=== PATIENT | female | born 1985 | race Caucasian/White ===

== ENCOUNTER → 2023-08-15 | Outpatient (CLI) | payer MEDICAID, SELFPAY ==
[2023-08-15 12:10] LABS: Absolute Lymphocyte Count 2.24 X10^3/uL (0.83-4.51); Absolute Neutrophil Count 5.6 X10^3/uL (2.0-7.7); Basophil# 0.07 X10^3/uL; Basophil% 0.8 % (0-1); Eosinophil# 0.08 X10^3/uL; Eosinophils% 0.9 % (0-5); Hematocrit 41.5 % (37-47); Hemoglobin 13.3 g/dL (12.0-15.0); Lymphocyte # 2.24 X10^3/ul (0.83-4.51); Lymphocyte % 25.7 % (19-41); Mean Corpuscular Hgb 28.8 pg (27.0-32.0); Mean Corpuscular Volume 89.8 fL (81-99); Mean Platelet Vol. 9.8 fl (6.2-12.0); Monocyte# 0.67 X10^3/uL; Monocyte% 7.7 % (0-10); NRBC Flagged by Analyzer 0 % (0-5); Neutrophil # 5.63 X10^3/uL (2.7-7.7); Neutrophil % 64.4 % (47-70); Platelet Count 339 K/mm3 (150-450); RBC Distribution Width CV 12.6 % (11.6-14.6); RBC Distribution Width SD 41.5 fl (35.1-43.9); Red Blood Count 4.62 M/mm3 (4.2-5.4); White Blood Count 8.7 K/mm3 (4.4-11.0)
[2023-08-15 12:40] LABS: Vitamin D,25 Hydroxy 19.6 ng/mL
[2023-08-15 12:47] LABS: ALB/GLOB Ratio 0.9 RATIO (0.9-2.4); AST(SGOT) 15 U/L (15-37); Alanine Aminotransfer ALT/SGPT 25 U/L (13-56); Albumin, Serum 3.5 g/dL (3.2-5.0); Alkaline Phosphatase 65 U/L (45-117); Anion Gap 5 (5-15); BUN 12 mg/dL (7-18); BUN/Creat Ratio 22.7 RATIO (10-20); Calcium,Total 9.1 mg/dL (8.5-10.1); Chloride 106 mmol/L (98-107); Cholesterol 198 mg/dL (200); Creatinine, Serum 0.53 mg/dL (0.55-1.02); EST Glomerular Filtration Rate 137 mL/min (>60); Est Glom Filt Rate - Afr Amer 166 mL/min (>60); Globulin 3.7 g/dL (2.2-4.2); Glucose 91 mg/dL (74-106); High Density Lipoprotein 48 mg/dL; Protein, Total 7.2 g/dL (6.4-8.2); Sodium Level 136 mmol/L (136-145); Thyroid Stim Hormone (TSH) 2.25 uIU/mL (0.358-3.74); Triglycerides 80 mg/dL; Very Low Density Lipoprotein 16 mg/dL (5-40)
== END | disposition home or self-care (01) ==
PROVIDERS: PCP Family Medicine; Referring Provider Family Medicine; Visit Provider Family Medicine
DX: K92.1 Melena (principal); R10.9 Unspecified abdominal pain; R53.83 Other fatigue; Z13.21 Encounter for screening for nutritional disorder
CPT/HCPCS: 36415; 80053; 80061; 82306; 84443; 85025

== ENCOUNTER 2023-08-26 19:13 | Emergency (ER) | payer MEDICAID, SELFPAY ==
[2023-08-26 19:14] VITALS: BP 170/126; PULSE 95; RESP 16; TEMP 36.7; O2SAT 98; BMI 38.2
[2023-08-26] MEDS: Ketorolac 30 MG/ML Syringe IM (19:45)
[2023-08-26] MEDS: Orphenadrine 60 MG/2 ML Ampul IM (19:45)
--- NOTE | 2023-08-26 20:15 | RAD_ITS ---
STUDY: X-RAY - LUMBAR SPINE REASON FOR EXAM: Female, 38 years old. back pain TECHNIQUE: 2 view(s) of the lumbar spine were obtained. COMPARISON: None FINDINGS: Normal lumbar lordosis. Minimal scoliosis with convexity to the left. There is a normal alignment of the vertebrae. Normal vertebral bodies and endplates. Normal disc space heights. There is no demonstrated fracture. The soft tissue structures are unremarkable. RAD/Lumbar Spine 2 or 3 Views IMPRESSION: Minor scoliosis with convexity to the left. Otherwise normal x-ray of the lumbar spine with no acute fracture or spondylolisthesis. Electronically Signed: Kristen Prado MD at 20:33 EST ,
--- NOTE | 2023-08-26 20:31 | EDS_ITS ---
HPI <COY Church - Last Filed: 08/26/23 21:30> History of Present Illness Chief Complaint: Back Narrative Narrative: Patient presenting today with back pain that started yesterday. She reports that she was reaching in the fridge to grab an ice tea when she felt a sudden sharp pain in her back. She reports that the pain radiates down the anterior and posterior aspect of her bilateral lower extremities. She denies any bowel/bladder incontinence, saddle paresthesia, urinary symptoms, fevers, chills. She is able to ambulate. She has been taking ibuprofen, Tylenol, and a friend's gabapentin with minimal relief of her symptoms. She denies any paresthesias to her bilateral lower extremities. [facility] <COY Church - Last Filed: 08/26/23 21:30> [facility] Medical History Marijuana abuse Marijuana smoker Home Medications cyclobenzaprine 10 mg tablet 10 mg PO TID PRN Muscle Spasm 5 days #15 TABLETS 08/26/23 [Rx Last Taken Unknown] ergocalciferol (vitamin D2) 1,250 mcg (50,000 unit) capsule 50,000 unit PO SA 08/26/23 [History Last Taken Unknown] hydrocodone-acetaminophen 5-325mg 5mg-325mg 1 tab PO Q4H PRN PRN Pain 3 days #7 TABLETS 08/26/23 [Rx Last Taken Unknown] naproxen 500 mg tablet 500 mg PO BID #14 tabs 08/26/23 [Rx Last Taken Unknown] Allergy/AdvReac Type Severity Reaction Status Date / Time No Known Allergies Allergy Verified 08/26/23 19:16 Social History Smoking Status: Current every day smoker tobacco type: cigarettes ROS <COY Church - Last Filed: 08/26/23 21:30> ROS ED Constitutional Constitutional ED: Denies chills or fever(s) Cardiovascular Cardiovascular: Denies chest pain Respiratory/Chest Respiratory/Chest: Denies cough or dyspnea Gastrointestinal Gastrointestinal: Denies abdominal pain, nausea or vomiting Genitourinary Genitourinary ED: Denies dysuria, hematuria or urinary urgency Musculoskeletal Musculoskeletal: Reports back pain Integumentary Denies rash Neurologic Neurologic: Denies paresthesias or weakness EXAM <COY Church - Last Filed: 08/26/23 21:30> Physical Exam Const Vital Signs: 08/26/23 19:14 Temperature 98.1 F Temperature Source Temporal Pulse Rate 95 Respiratory Rate 16 Blood Pressure 170/126 H Blood Pressure Mean 140 Pulse Ox 98 Oxygen Delivery Method Room Air Positive well nourished, well developed and no apparent distress General Appearance ED: well developed HEENT Reports normocephalic and head/scalp atraumatic Mouth ED: Yes moist mucous membranes normal Eyes PERRL and EOMs intact bilaterally Neck full ROM and supple Chest Wall inspection of chest normal Resp normal respiratory effort and clear to auscultation bilaterally Cardio regular rate and regular rhythm GI soft to palpation, non-tender, non-distended and no masses Back/Spine normal ROM and normal to inspection Back/Spine Narrative: Right lumbar paraspinal tenderness, minimal midline lumbar back tenderness, no step-offs or deformities. Extremity normal to inspection and full ROM Neuro oriented x3, CN's II-XII intact bilaterally, moves all extremities, no focal motor deficits and no sensory deficits noted Neuro Narrative: Sensation intact bilateral lower extremities. Sensorium / Orientation: awake and alert Motor Exam: strength 5/5 throughout Psych mental status grossly normal and thought process normal Skin no rashes or lesions noted and no wounds <Dr. Broderick Ayala MD - Last Filed: 08/26/23 23:39> Physical Exam Const Vital Signs: 08/26/23 19:14 Temperature 98.1 F Temperature Source Temporal Pulse Rate 95 Respiratory Rate 16 Blood Pressure 170/126 H Blood Pressure Mean 140 Pulse Ox 98 Oxygen Delivery Method Room Air MDM <COY Church - Last Filed: 08/26/23 21:30> [facility] Narrative Medical decision making narrative: Patient presenting today with lower back pain that she has had since yesterday. She did report that she does have chronic low back pain which has been worked up in the past and thinks that this is disc related and is a flare-up. This does feel similar to back pain that she has had. No symptoms of cauda equina or spinal abscess. I do not feel that any emergent MRI imaging is indicated at this time. X-ray of the lumbar spine obtained, this shows spondylolisthesis. She was given Toradol and Norflex here for her pain. On Reexamination she does report some improvement of her symptoms. She will be given a prescription for Warren, naproxen, and Flexeril. She has been given return instructions and is to follow-up with her PCP. She is comfortable with plan. Radiography X-Ray: Read by ED Physician and Read by Radiologist Diagnostic Testing: Clinical Impression(s) from Imaging Studies Lumbar Spine X-Ray 08/26/23 20:15 IMPRESSION: Minor scoliosis with convexity to the left. Otherwise normal x-ray of the lumbar spine with no acute fracture or spondylolisthesis. Electronically Signed: Kristen Prado MD at 20:33 EST , <Dr. Broderick Ayala MD - Last Filed: 08/26/23 23:39> MDM Radiography Diagnostic Testing: Clinical Impression(s) from Imaging Studies Lumbar Spine X-Ray 08/26/23 20:15 IMPRESSION: Minor scoliosis with convexity to the left. Otherwise normal x-ray of the lumbar spine with no acute fracture or spondylolisthesis. Electronically Signed: Kristen Prado MD at 20:33 EST , Treatment and Re-Evaluation Narrative: I have personally performed a face to face assessment of the patient and have reviewed the DALE Note. I performed a substantive portion of the visit including all aspects of the following. My alvarez findings include: History is sudden onset right and middle distal low back pain yesterday when she bent over to reach into her refrigerator. Pain radiates into both legs below the knees but no weakness, numbness, bowel or bladder dysfunction, or saddle anesthesia. States she has a longstanding history of back problems and has had this pain before, thinks it is a disc, and states this is a flareup. Exam is uncomfortable when movement of the legs and back, but comfortable and stable when remaining still. Tender in the right lumbosacral paraspinal region and into the sciatic notch on the right but not the left. Negative straight leg raises. Normal reflexes, no clonus, and toes downgoing. Reflexes are normal and symmetric bilaterally. Medical Decison Making lumbar spine x-rays show scoliosis with no acute fracture or mitral rotation, 3 views. Patient given analgesics here muscle relaxers p rescriptions for supportive care, she does not have cauda equina or conus medullaris syndrome at this time, we discussed reasons to return to the ER for emergent MRI but otherwise it is not indicated emergently at this time. Follow- up advised. Other additions or changes: [None] Discharge Plan Triage Chief Complaint: Back ED Midlevel Provider: Ilda Salazar ED Provider: Broderick Ayala Dx/Rx/DC Orders Clinical Impression: Acute exacerbation of chronic low back pain Instructions: ED Back Care Tips Prescriptions: New hydrocodone-acetaminophen 5-325 mg tablet 1 tab PO Q4H PRN PRN (Reason: Pain) 3 Days Qty: 7 0RF naproxen 500 mg tablet 500 mg PO BID Qty: 14 0RF cyclobenzaprine 10 mg tablet 10 mg PO TID PRN (Reason: Muscle Spasm) 5 Days Qty: 15 0RF No Action ergocalciferol (vitamin D2) 1,250 mcg (50,000 unit) capsule 50,000 unit PO SA Primary Care Provider: Silva Jaime Referrals: Silva Jaime MD [Primary Care Provider] - 5-7 Days Activity Restrictions/Additional Instructions: Please follow-up with your PCP and return for any worsening of your symptoms. Disposition Disposition: Home, Self Care Discharge Date/Time: 08/26/23 21:35
== END 2023-08-26 21:35 | disposition home or self-care (01) ==
PROVIDERS: Emergency Provider Emergency Medicine; PCP Family Medicine; Visit Provider Emergency Medicine
DX: M54.50 Low back pain, unspecified (principal); G89.29 Other chronic pain; F17.210 Nicotine dependence, cigarettes, uncomplicated
CPT/HCPCS: 72100; 96372; 99282

== ENCOUNTER → 2023-10-19 | Outpatient (CLI) | payer MEDICAID, SELFPAY ==
[2023-10-19 17:25] LABS: Absolute Lymphocyte Count 2.96 X10^3/uL (0.83-4.51); Absolute Neutrophil Count 6.5 X10^3/uL (2.0-7.7); Basophil# 0.05 X10^3/uL; Basophil% 0.5 % (0-1); Eosinophil# 0.13 X10^3/uL; Eosinophils% 1.3 % (0-5); Hematocrit 37.7 % (37-47); Hemoglobin 12.6 g/dL (12.0-15.0); Lymphocyte # 2.96 X10^3/ul (0.83-4.51); Lymphocyte % 28.7 % (19-41); Mean Corp Hgb Conc 33.4 g/dL (32-36); Mean Corpuscular Volume 89.8 fL (81-99); Mean Platelet Vol. 9.3 fl (6.2-12.0); Monocyte# 0.69 X10^3/uL; Monocyte% 6.7 % (0-10); NRBC Flagged by Analyzer 0 % (0-5); Neutrophil # 6.47 X10^3/uL (2.7-7.7); Neutrophil % 62.6 % (47-70); Platelet Count 342 K/mm3 (150-450); RBC Distribution Width CV 12.9 % (11.6-14.6); RBC Distribution Width SD 42.5 fl (35.1-43.9); White Blood Count 10.3 K/mm3 (4.4-11.0)
[2023-10-19 17:48] LABS: Vitamin B12 263 pg/mL (211-911)
[2023-10-19 18:02] LABS: AST(SGOT) 19 U/L (15-37); Alanine Aminotransfer ALT/SGPT 24 U/L (13-56); Albumin, Serum 3.3 g/dL (3.2-5.0); Alkaline Phosphatase 62 U/L (45-117); Anion Gap 5 (5-15); BUN 11 mg/dL (7-18); BUN/Creat Ratio 19.9 RATIO (10-20); Calcium,Total 8.8 mg/dL (8.5-10.1); Chloride 108 mmol/L (98-107); Creatinine, Serum 0.55 mg/dL (0.55-1.02); EST Glomerular Filtration Rate 130 mL/min (>60); Est Glom Filt Rate - Afr Amer 157 mL/min (>60); Globulin 3.4 g/dL (2.2-4.2); Glucose 99 mg/dL (74-106); Magnesium 1.9 mg/dL (1.6-2.6); Potassium 4.1 mmol/L (3.5-5.1); Protein, Total 6.7 g/dL (6.4-8.2); Sodium Level 140 mmol/L (136-145); Thyroid Stim Hormone (TSH) 1.43 uIU/mL (0.358-3.74)
== END | disposition home or self-care (01) ==
LOC: MTLAB 14:29
PROVIDERS: PCP Family Medicine; Referring Provider Family Medicine; Visit Provider Family Medicine
DX: R20.9 Unspecified disturbances of skin sensation (principal)
CPT/HCPCS: 36415; 80053; 82607; 83735; 84443; 85025

== ENCOUNTER 2023-10-22 20:14 | Emergency (ER) | payer MEDICAID, SELFPAY ==
[2023-10-22 20:16] VITALS: BP 163/82; PULSE 86; RESP 12; RESP 14; TEMP 36; O2SAT 100; BMI 39.0
--- NOTE | 2023-10-22 21:12 | ED.VIS.GI ---
HPI HPI - GI History of Present Illness Chief Complaint: Abd Pain Informant: patient Narrative Narrative: Patient presents with abdominal pain. She states she has seen her doctor but she has just done labs and referred her to GI who she cannot get into until March. She is not sure what to do she states. The symptoms that she has, which includes trouble having bowel movements, tenesmus, blood for the past 3 weeks on occasion, without fevers, nausea or vomiting, or any new symptoms otherwise, have been present for years. She states when she was 16 she had a colonoscopy for similar symptoms and was diagnosed with colitis, she was placed on Asacol which she took for maybe a year until it ran out then she did not get it filled nor did she follow-up and she has really never followed up or been seen since, she states he was following [facility] for some time but now she is here and trying to get established with care. Has been following with her PCP. [facility] Medical History Abdominal pain Anxiety Back pain Blood in stool Colitis Constipation Depression Heart murmur Hemorrhoids Marijuana abuse Marijuana smoker Weight gain Home Medications cyclobenzaprine 10 mg tablet 10 mg PO TID PRN Muscle Spasm 5 days #15 TABLETS 08/26/23 [Rx Last Taken Unknown] ergocalciferol (vitamin D2) 1,250 mcg (50,000 unit) capsule 50,000 unit PO SA 08/26/23 [History Last Taken Unknown] hydrocodone-acetaminophen 5-325mg 5mg-325mg 1 tab PO Q4H PRN PRN Pain 3 days #7 TABLETS 08/26/23 [Rx Last Taken Unknown] naproxen 500 mg tablet 500 mg PO BID #14 tabs 08/26/23 [Rx Last Taken Unknown] omeprazole 40 mg capsule,delayed release 40 mg PO QDAY #30 caps 09/08/23 [Rx Last Taken Unknown] ciprofloxacin HCl 500 mg tablet 500 mg PO BID #14 TABLETS 10/22/23 [Rx Last Taken Unknown] dicyclomine 10 mg capsule 20 mg (2 x 10 mg) PO Q6H PRN PRN abdominal pain #30 CAPSULES 10/22/23 [Rx Last Taken Unknown] metronidazole 500 mg tablet 500 mg PO BID #14 tabs 10/22/23 [Rx Last Taken Unknown] prednisone 20 mg tablet 40 mg (2 x 20 mg) PO DAILY #10 tabs 10/22/23 [Rx Last Taken Unknown] Allergy/AdvReac Type Severity Reaction Status Date / Time aspirin Allergy Severe UNKNOWN Verified 10/22/23 20:18 Penicillins AdvReac Mild Itching Verified 10/22/23 20:18 Family History (Updated 09/08/23 @ 10:08 by Altagracia Clarke) Father Hypertension CAD (coronary artery disease) Uncle Cancer skin Aunt Cancer brain Surgical History S/P section Social History Smoking Status: Current every day smoker tobacco type: cigarettes alcohol intake: never substance use type: marijuana ROS ROS ED Constitutional Constitutional ED: Denies chills or fever(s) Eyes Eyes: Denies change in vision or diplopia ENT ENT ED: Denies rhinorrhea or sore throat Cardiovascular Cardiovascular: Denies chest pain or palpitations Respiratory/Chest Respiratory/Chest: Denies cough or dyspnea Gastrointestinal Gastrointestinal: Reports as per HPI, abdominal pain, hematochezia and tenesmus; Denies diarrhea, melena, nausea or vomiting Genitourinary Genitourinary ED: Denies dysuria or hematuria Musculoskeletal Musculoskeletal: Denies back pain or neck pain Integumentary Denies abscess or rash Neurologic Neurologic: Denies headache(s), paresthesias or weakness Psychiatric Psychiatric: Denies suicidal thoughts EXAM Physical Exam Const Vital Signs: 10/22/23 20:16 10/22/23 20:16 Temperature 96.8 F L Temperature Source Temporal Pulse Rate 86 86 Respiratory Rate 12 14 Blood Pressure 163/82 H 163/82 H Blood Pressure Mean 109 109 Pulse Ox 100 100 Oxygen Delivery Method Room Air Room Air Positive well nourished and well developed General Appearance ED: well developed and NAD HEENT Reports moist mucous membranes normocephalic and atraumatic Eyes PERRL and EOMs intact bilaterally Neck full ROM and supple Resp normal respiratory effort and clear to auscultation bilaterally Cardio regular rate, regular rhythm and no murmurs GI non-distended GI Narrative: Left lower quadrant tenderness without guarding or rebound. No other areas of tenderness. Auscultation: normoactive bowel sounds Palpation: soft Back/Spine no CVA tenderness General Back: other FROM Extremity normal to inspection General Extremety ED: Negative for edema, pulses abnormal or tenderness General Extremity: Negative for edema or pulses abnormal Neuro oriented x3, CN's II-XII intact bilaterally and no sensory deficits noted Sensorium / Orientation: awake and alert Motor Exam: strength 5/5 throughout Psych mental status grossly normal Mood & Affect: anxious Skin no rashes or lesions noted and no wounds MDM MDM MDM Narrative Medical decision making narrative: I reviewed the patient's outpatient labs she had them 2-3 days ago, and they were all normal including LFTs and blood counts. I do not think she needs to repeat any of these here and I do not think she needs advanced imaging such as CT scan, given her history. This is all consistent with inflammatory colitis. At this time I think it is most reasonable to refer her to surgery for endoscopy for diagnostics since they tend to get people into the endoscopy faster since they are more of them we will have 1 engineering designer, and in addition I am going to help her with her symptoms today by prescribing her 1 week of Cipro and Flagyl as well as prednisone and dicyclomine as needed. She is comfortable with that plan and appreciative. History & Record Review Additional record(s) reviewed:: Prior outpatient record Discharge Plan Triage Chief Complaint: Abd Pain ED Provider: Broderick Ayala Dx/Rx/DC Orders Clinical Impression: Colitis Instructions: ED Understanding Colitis Prescriptions: New prednisone 20 mg tablet 40 mg PO DAILY Qty: 10 0RF dicyclomine 10 mg capsule 20 mg PO Q6H PRN PRN (Reason: abdominal pain) Qty: 30 0RF metronidazole [metronidazole] 500 mg tablet 500 mg PO BID Qty: 14 0RF ciprofloxacin HCl [ciprofloxacin HCl] 500 mg tablet 500 mg PO BID Qty: 14 0RF No Action omeprazole 40 mg capsule,delayed release(DR/EC) 40 mg PO QDAY Qty: 30 4RF Rx Instructions: swallow whole; do not crush, chew, dissolve, cut, break ergocalciferol (vitamin D2) 1,250 mcg (50,000 unit) capsule 50,000 unit PO SA hydrocodone-acetaminophen 5-325 mg tablet 1 tab PO Q4H PRN PRN (Reason: Pain) 3 Days Qty: 7 0RF naproxen 500 mg tablet 500 mg PO BID Qty: 14 0RF cyclobenzaprine 10 mg tablet 10 mg PO TID PRN (Reason: Muscle Spasm) 5 Days Qty: 15 0RF Primary Care Provider: Vanessa Ragland Referrals: Amado Cross MD [Med Staff - Active Staff] - (Call for appointment for evaluation for endoscopy) Vanessa Ragland DO [Primary Care Provider] - Po Frost DO [Med Staff - Active Staff] - (May call periodically to see if there is a cancellation.) Disposition Disposition: Home, Self Care
[2023-10-22] MEDS: Dicyclomine 10 MG Capsule 20 MG PO (21:19)
[2023-10-22] MEDS: predniSONE 20 MG Tablet 40 MG PO (21:19)
[2023-10-22 21:20] VITALS: BP 163/82; PULSE 86; RESP 14; TEMP 36; O2SAT 100
== END 2023-10-22 21:22 | disposition home or self-care (01) ==
PROVIDERS: Emergency Provider Emergency Medicine; PCP Family Medicine; Visit Provider Emergency Medicine
DX: K52.9 Noninfective gastroenteritis and colitis, unspecified (principal); F12.90 Cannabis use, unspecified, uncomplicated; F17.210 Nicotine dependence, cigarettes, uncomplicated
CPT/HCPCS: 99283

== ENCOUNTER 2024-04-08 23:47 | Emergency (ER) | payer MEDICAID, SELFPAY ==
[2024-04-08 23:48] VITALS: BP 155/84; PULSE 78; RESP 18; TEMP 36.6; O2SAT 98; BMI 38.1
[2024-04-09] MEDS: 0.9% Normal Saline (1000mL) 1,000 ML 999 ML IV (00:46)
[2024-04-09] MEDS: MethylPREDNISolone 125 MG/2 ML Vial IV (00:46)
[2024-04-09] MEDS: Ondansetron 4 MG/2 ML Vial IV (00:46)
[2024-04-09] MEDS: Morphine 4 MG/ML Syringe IV (00:46)
[2024-04-09 00:47] LABS: Absolute Lymphocyte Count 3.75 X10^3/uL (0.83-4.51); Absolute Neutrophil Count 6.9 X10^3/uL (2.0-7.7); Basophil# 0.08 X10^3/uL; Basophil% 0.7 % (0-1); Eosinophil# 0.15 X10^3/uL; Eosinophils% 1.3 % (0-5); Hematocrit 39.4 % (37-47); Hemoglobin 13.1 g/dL (12.0-15.0); Lymphocyte # 3.75 X10^3/ul (0.83-4.51); Lymphocyte % 31.7 % (19-41); Mean Corp Hgb Conc 33.2 g/dL (32-36); Mean Corpuscular Hgb 29.8 pg (27.0-32.0); Mean Corpuscular Volume 89.7 fL (81-99); Mean Platelet Vol. 9.6 fl (6.2-12.0); Monocyte# 0.93 X10^3/uL; Monocyte% 7.9 % (0-10); NRBC Flagged by Analyzer 0 % (0-5); Neutrophil # 6.88 X10^3/uL (2.7-7.7); Neutrophil % 58.1 % (47-70); Platelet Count 366 K/mm3 (150-450); RBC Distribution Width CV 12.7 % (11.6-14.6); Red Blood Count 4.39 M/mm3 (4.2-5.4); White Blood Count 11.8 K/mm3 (4.4-11.0)
[2024-04-09 01:10] LABS: Anion Gap 6 (5-15); BUN 16 mg/dL (7-18); BUN/Creat Ratio 20.3 RATIO (10-20); CRP < 2.90 mg/L (0.0-3.0); Calcium,Total 9.2 mg/dL (8.5-10.1); Chloride 102 mmol/L (98-107); Creatinine, Serum 0.79 mg/dL (0.55-1.02); EST Glomerular Filtration Rate 86 mL/min (>60); Est Glom Filt Rate - Afr Amer 104 mL/min (>60); Estimated Creatinine Clearance 114.33 ml/min; Glucose 107 mg/dL (74-106); Internal QC Validated? YES +Cl - CLEAR BKGD; Potassium 3.8 mmol/L (3.5-5.1); Pregnancy, Serum, hCG Quali. NEGATIVE Negative; Sodium Level 136 mmol/L (136-145)
[2024-04-09 01:23] LABS: Erythrocyte Sedimentation Rate 16 mm/hr (0-30)
[2024-04-09 01:47] VITALS: BP 140/86; PULSE 75; RESP 18; O2SAT 99
[2024-04-09 02:00] VITALS: BP 132/74; PULSE 69; RESP 18; TEMP 36.8; O2SAT 99
--- NOTE | 2024-04-09 02:05 | EDS_ITS ---
HPI History of Present Illness Chief Complaint: Abd Pain Informant: patient Narrative Narrative: Patient is a 39-year-old female with past medical history of anxiety as well as depression GERD and colitis. She states that she was seen at an outside facility where she was diagnosed with a UTI and is currently on Keflex. She states she has been taking the Keflex for a few days but now has developed pain in the left lower quadrant of her abdomen. She reports no nausea vomiting diarrhea dysuria or constipation. She states that she has not been seen for colitis in multiple years but was diagnosed at age 16. She reports she is concerned this could be a potential colitis flare or reaction to the Keflex and therefore comes in for evaluation [facility] Medical History Weight gain Abdominal pain Blood in stool Anxiety Depression Heart murmur Colitis Constipation Hemorrhoids Back pain Marijuana smoker Marijuana abuse Home Medications ?Medication ?Instructions ?Recorded ?Last Taken ?Type cephalexin 500 mg capsule 500 mg PO Q12.TCU 04/08/24 Unknown History oxycodone-acetaminophen 5 mg-325 1 tab PO Q6H PRN pain 3 days #12 04/09/24 Unknown Rx mg tablet (Percocet) tabs prednisone 20 mg tablet 40 mg (2 x 20 mg) PO DAILY 5 days 04/09/24 Unknown Rx #10 tabs Allergy/AdvReac Type Severity Reaction Status Date / Time aspirin Allergy Severe UNKNOWN Verified 04/08/24 23:52 Penicillins AdvReac Mild Itching Verified 04/08/24 23:52 Family History (Updated 09/08/23 @ 10:08 by Altagracia Clarke) Father Hypertension CAD (coronary artery disease) Uncle Cancer skin Aunt Cancer brain Surgical History S/P section Social History Smoking Status: Current every day smoker tobacco type: cigarettes alcohol intake: never substance use type: marijuana ROS ROS ED Constitutional Constitutional ED: Denies chills or fever(s) Eyes Eyes: Denies blurry vision or change in vision ENT ENT ED: Denies rhinorrhea or sore throat Cardiovascular Cardiovascular: Denies chest pain or palpitations Respiratory/Chest Respiratory/Chest: Denies cough or dyspnea Gastrointestinal Gastrointestinal: Reports abdominal pain and constipation; Denies diarrhea, nausea or vomiting Genitourinary Genitourinary ED: Denies dysuria Musculoskeletal Musculoskeletal: Denies myalgias Integumentary Denies rash Neurologic Neurologic: Denies headache(s) Hematologic/Lymphatic Hematologic/Lymphatic: Denies easy bleeding or easy bruising EXAM Physical Exam Const Vital Signs: 04/08/24 23:48 04/09/24 01:47 04/09/24 02:00 Temperature 97.8 F 98.2 F Temperature Source Temporal Pulse Rate 78 75 69 Respiratory Rate 18 18 18 Blood Pressure 155/84 H 140/86 H 132/74 H Blood Pressure Mean 107 104 93 Pulse Ox 98 99 99 Oxygen Delivery Method Room Air Room Air Positive well nourished and well developed General Appearance ED: well developed; Negative for pallor HEENT Reports moist mucous membranes HEENT Narrative: No tongue or lip swelling no oral lesions no airway edema or compromise No secondary findings in the posterior pharynx to suggest infection Eyes PERRL and EOMs intact bilaterally General Eye ED: Negative for pale conjunctiva or scleral icterus Neck supple Neck Narrative: No nuchal rigidity or meningeal signs Chest Wall palpation of chest normal Resp normal respiratory effort and clear to auscultation bilaterally Cardio regular rhythm Rate: other Other Details: Radial and carotid pulses are equal and symmetric GI non-distended and no masses GI Narrative: Abdomen is soft and nondistended with hyperactive bowel sounds. There is pain on palpation in the left lower quadrant without voluntary guarding or rigidity or pulsatile mass Auscultation: hyperactive bowel sounds Palpation: soft Back/Spine no CVA tenderness Extremity normal to inspection Neuro oriented x3, CN's II-XII intact bilaterally and no sensory deficits noted Sensorium / Orientation: alert Psych mental status grossly normal Skin no rashes or lesions noted and no wounds Skin Narrative: No oral lesions No erythema or rash present No palm or sole involvement General Skin Exam: Negative for jaundice or pallor MDM MDM MDM Narrative Medical decision making narrative: Patient arrived to the ER hypertensive but otherwise with stable vitals. She reported she has been on Keflex secondary to a UTI and now feels itching all over. There is concern for an acute allergic reaction or even Mendoza-Be syndrome but patient does not have a rash anywhere on her body. With pain in the left lower quadrant there is concern for inflammatory versus infectious colitis versus diverticulitis. Based on her history and exam I did not feel the need for a CT scan and basic blood work was obtained to check for potentially infectious process or acute kidney injury. Lab work revealed faint leukocytosis but otherwise no signs of secondary infection or elevation to the inflammatory markers such as her CRP ESR or white count. Therefore at this time I feel sy mptoms are most likely viral in nature and she can continue on the Keflex as this seems to be helping with the UTI. Without rash present I have low concern for allergic reaction or Mendoza-Be syndrome and therefore feels appropriate for her to continue the antibiotic. This plan of care was discussed with the patient she is agreeable to History & Record Review Discussion w/independent historian: Patient Lab Data Attestation: I reviewed the patient's lab results. Labs: Laboratory Results - last 24 hr 04/09/24 00:10 WBC 11.8 H RBC 4.39 Hgb 13.1 Hct 39.4 MCV 89.7 MCH 29.8 MCHC 33.2 RDW Std Deviation 42.0 RDW Coeff of Juhi 12.7 Plt Count 366 MPV 9.6 Immature Gran % (Auto) 0.300 Neut % (Auto) 58.1 Lymph % (Auto) 31.7 [place] % (Auto) 7.9 Eos % (Auto) 1.3 Baso % (Auto) 0.7 Absolute Neuts (auto) 6.9 Absolute Lymphs (auto) 3.75 Nucleated RBC % 0 ESR 16 Sodium 136 Potassium 3.8 Chloride 102 Carbon Dioxide 28.0 Anion Gap 6 BUN 16 Creatinine 0.79 Estim Creat Clear Calc 114.33 Est GFR (MDRD) Af Amer 104 Est GFR (MDRD) Non-Af 86 BUN/Creatinine Ratio 20.3 H Glucose 107 H Calcium 9.2 C-React Prot Ext Range < 2.90 Serum , Qual NEGATIVE Discharge Plan Triage Chief Complaint: Abd Pain ED Provider: Raudel Colunga Dx/Rx/DC Orders Clinical Impression: Nonspecific abdominal pain, Depression, Anxiety, Colitis, Hypertension Instructions: Abdominal Pain, ED Understanding Colitis Prescriptions: New prednisone 20 mg tablet 40 mg PO DAILY 5 Days Qty: 10 0RF oxycodone-acetaminophen [Percocet] 5-325 mg tablet 1 tab PO Q6H PRN (Reason: pain) 3 Days Qty: 12 0RF No Action cephalexin 500 mg capsule 500 mg PO Q12.TCU Stand Alone Forms: ED Work / School Excuse Primary Care Provider: Care Physician,No Primary Referrals: Care Physician,No Primary [Primary Care Provider] - Activity Restrictions/Additional Instructions: Please finish out the Keflex you are prescribed for your UTI. Add the prednisone to reduce inflammation which I believe is the main cause of your abdominal pain and return to the ER should you have any further concerns or worsening of symptoms Print Language: Khmer Disposition Disposition: Home, Self Care Discharge Date/Time: 04/09/24 02:16
== END 2024-04-09 02:16 | disposition home or self-care (01) ==
PROVIDERS: Emergency Provider Emergency Medicine; Visit Provider Emergency Medicine
DX: K52.9 Noninfective gastroenteritis and colitis, unspecified (principal); R10.32 Left lower quadrant pain; N39.0 Urinary tract infection, site not specified; F41.9 Anxiety disorder, unspecified; F32.A Depression, unspecified; K21.9 Gastro-esophageal reflux disease without esophagitis; F17.210 Nicotine dependence, cigarettes, uncomplicated; Z88.0 Allergy status to penicillin; Z88.6 Allergy status to analgesic agent; Z87.19 Personal history of other diseases of the digestive system
CPT/HCPCS: 80048; 84703; 85025; 85652; 86140; 96361; 96374; 96375; 96376; 99283; J7030; A4216; J2405

== ENCOUNTER → 2024-04-16 | Outpatient (CLI) | payer MEDICAID, SELFPAY ==
--- NOTE | 2024-04-16 11:30 | RAD_ITS ---
STUDY: X-RAY - ABDOMEN/PELVIS REASON FOR EXAM: Female, 39 years old. Abdominal pain TECHNIQUE: Two AP supine views of the abdomen and pelvis. COMPARISON: None. FINDINGS: Normal visualized lung bases. There is a moderate amount of colonic fecal material. There is no demonstrated free abdominal air. The visualized liver, spleen and kidneys are grossly normal in size and morphology. There is a metallic clip in the left lower quadrant which may be on the patient''s person, Normal visualized osseous structures. RAD/Abdomen Single View IMPRESSION: No acute findings, retained stool Electronically Signed: Jose Gallagher MD at 9:49 EDT ,
[2024-04-16 11:48] LABS: Absolute Lymphocyte Count 4.75 X10^3/uL (0.83-4.51); Absolute Neutrophil Count 6.4 X10^3/uL (2.0-7.7); Basophil# 0.08 X10^3/uL; Basophil% 0.6 % (0-1); Eosinophil# 0.18 X10^3/uL; Eosinophils% 1.5 % (0-5); Hematocrit 44.6 % (37-47); Hemoglobin 14.5 g/dL (12.0-15.0); Lymphocyte # 4.75 X10^3/ul (0.83-4.51); Lymphocyte % 38.4 % (19-41); Mean Corp Hgb Conc 32.5 g/dL (32-36); Mean Corpuscular Hgb 29.2 pg (27.0-32.0); Mean Corpuscular Volume 89.7 fL (81-99); Mean Platelet Vol. 9.2 fl (6.2-12.0); Monocyte# 0.91 X10^3/uL; Monocyte% 7.4 % (0-10); NRBC Flagged by Analyzer 0 % (0-5); Neutrophil # 6.37 X10^3/uL (2.7-7.7); Neutrophil % 51.5 % (47-70); Platelet Count 384 K/mm3 (150-450); RBC Distribution Width CV 13.3 % (11.6-14.6); RBC Distribution Width SD 43.8 fl (35.1-43.9); Red Blood Count 4.97 M/mm3 (4.2-5.4); White Blood Count 12.4 K/mm3 (4.4-11.0)
[2024-04-16 12:02] LABS: Erythrocyte Sedimentation Rate 10 mm/hr (0-30)
[2024-04-16 12:21] LABS: ALB/GLOB Ratio 1.1 RATIO (0.9-2.4); AST(SGOT) 14 U/L (15-37); Alanine Aminotransfer ALT/SGPT 31 U/L (13-56); Albumin, Serum 3.7 g/dL (3.2-5.0); Alkaline Phosphatase 71 U/L (45-117); Anion Gap 4 (5-15); BUN 16 mg/dL (7-18); BUN/Creat Ratio 30.2 RATIO (10-20); Calcium,Total 9.6 mg/dL (8.5-10.1); Chloride 101 mmol/L (98-107); Creatinine, Serum 0.53 mg/dL (0.55-1.02); EST Glomerular Filtration Rate 137 mL/min (>60); Est Glom Filt Rate - Afr Amer 165 mL/min (>60); Free T3 3.2 pg/mL (2.18-3.98); Globulin 3.4 g/dL (2.2-4.2); Glucose 90 mg/dL (74-106); LDH 144 U/L (84-246); Protein, Total 7.1 g/dL (6.4-8.2); Sodium Level 135 mmol/L (136-145)
[2024-04-19 16:10] LABS: ACCA 34 units (0-90); ALCA 1 units (0-60); AMCA 26 units (0-100); Albumin 3.5 g/dL (2.9-4.4); Alpha-1-Globulins 0.3 g/dL (0.0-0.4); Cytoplasmic Ab (C-ANCA) <1:20 titer (Neg:<1:20); Endomysial Antibody IgA Negative (Negative); Gamma Globulin 0.6 g/dL (0.4-1.8); Immunoglobulin A 261 mg/dL (87-352); Immunoglobulin E 106 IU/mL (6-495); Immunoglobulin G 657 mg/dL (586-1602); Immunoglobulin M 36 mg/dL (26-217); PROEL- TOTAL PROTEIN 6.7 g/dL (6.0-8.5); Perinuclear Ab (P-ANCA) <1:20 titer (Neg:<1:20); gASCA 28 units (0-50); t-Transglutaminase IgA <2 U/mL (0-3)
[2024-04-20 06:09] LABS: Anti-Centromere B Ab <0.2 AI (0.0-0.9); Anti-Chromatin <0.2 AI (0.0-0.9); Anti-Jo <0.2 AI (0.0-0.9); Anti-Scleroderma-70 AB <0.2 AI (0.0-0.9); Anti-dsDNA Ab <1 IU/mL (0-9); Beef <0.10 kU/L (Class 0); Chocolate <0.10 kU/L (Class 0); Codfish <0.10 kU/L (Class 0); Corn <0.10 kU/L (Class 0); Egg, Whole <0.10 kU/L (Class 0); Milk (Cow) <0.10 kU/L (Class 0); Mussels <0.10 kU/L (Class 0); Peanut <0.10 kU/L (Class 0); Pork <0.10 kU/L (Class 0); RNP Ab <0.2 AI (0.0-0.9); SJOGREN'S Anti-SS-A test < 0.2 AI (0.0-0.9); SJOGREN'S Anti-SS-B test < 0.2 AI (0.0-0.9); Salmon <0.10 kU/L (Class 0); Shrimp 0.15 kU/L (Class 0/I); Smith Ab <0.2 AI (0.0-0.9); Soybean <0.10 kU/L (Class 0); Tuna <0.10 kU/L (Class 0); Wheat <0.10 kU/L (Class 0)
== END | disposition home or self-care (01) ==
LOC: LAB 10:44 → RAD 10:45 → LAB 10:46
PROVIDERS: Referring Provider Student in an Organized Health Care Education/Training Program; Visit Provider Student in an Organized Health Care Education/Training Program
DX: K59.00 Constipation, unspecified (principal); R10.9 Unspecified abdominal pain
CPT/HCPCS: 36415; 74018; 80053; 82784; 82785; 83516; 83615; 84165; 84439; 84443; 84481; 85025; 85652; 86003; 86005; 86036; 86140; 86225; 86235; 86255; 86256; 86334; 86671

== ENCOUNTER → 2024-04-17 | Outpatient (CLI) | payer MEDICAID, SELFPAY ==
[2024-04-20 00:07] LABS: Pancreatic Elastase, Fecal 29 (>200)
[2024-04-20 08:12] LABS: Calprotectin, Stool 17 ug/g (0-120)
== END | disposition home or self-care (01) ==
LOC: LABSPEC 09:09
PROVIDERS: Referring Provider Student in an Organized Health Care Education/Training Program; Visit Provider Student in an Organized Health Care Education/Training Program
DX: K58.9 Irritable bowel syndrome, unspecified (principal); R10.9 Unspecified abdominal pain
CPT/HCPCS: 82653; 83630; 83993; 87177; 87209; 87506

== ENCOUNTER → 2024-05-13 | Outpatient (CLI) | payer MEDICAID, SELFPAY ==
[2024-05-13 15:56] LABS: Free T3 2.2 pg/mL (2.18-3.98); T4 Free Direct 0.88 ng/dL (0.76-1.46)
== END | disposition home or self-care (01) ==
LOC: MFPLAB 14:02
PROVIDERS: PCP Family Medicine; Visit Provider Family Medicine
DX: E03.9 Hypothyroidism, unspecified (principal)
CPT/HCPCS: 36415; 84439; 84443; 84481

== ENCOUNTER 2024-05-20 09:41 | Day surgery (SDC) | payer MEDICAID, SELFPAY ==
[2024-05-20] VITALS (8 sets, daily range): BP systolic 103–131; BP diastolic 63–90; PULSE 60–84; RESP 16–18; TEMP 36.1–36.6; O2SAT 97–100; BMI 37.6
[2024-05-20] MEDS: 0.9% Saline Lock 10 ML Syringe IV (10:14)
--- NOTE | 2024-05-20 10:21 | PCM.PRE.AN2 ---
ASA Classification* ASA Classification ASA Classification: 2 Assessment & Plan Anesthesia* Anesthesia Assessment Anesthesia Assessment: Discussed sedation and/or anesthesia options, risks, benefits, and alternatives with patient/parents/legal guardian/POA. Questions invited. The patient/parents/legal guardian/POA seems to understand and agrees to proceed with anesthesia plan. Reviewed the physical assessment, medical history, allergy history and patient home medications list prior to surgery/procedure/anesthetic and documented any changes. Performed airway and anesthesia risk assessments. Anesthesia Type Anesthesia Type: MAC Anesthesia Focused Assessment* Temperature: 97.8 F Pulse Rate: 83 Blood Pressure: 127/90 Respiratory Rate: 17 Pulse Ox: 98 Airway Assessment Mouth opens: >3 cm Mallampati Score: II Focused Labs Anesthesia Preop lab: CBC WBC 12.4 K/mm3 (4.4-11.0) H 04/16/24 10:58 RBC 4.97 M/mm3 (4.2-5.4) 04/16/24 10:58 Hgb 14.5 g/dL (12.0-15.0) 04/16/24 10:58 Hct 44.6 % (37-47) 04/16/24 10:58 Plt Count 384 K/mm3 (150-450) 04/16/24 10:58 CHEMISTRY Potassium 4.0 mmol/L (3.5-5.1) 04/16/24 10:58 Sodium 135 mmol/L (136-145) L 04/16/24 10:58 Magnesium 1.9 mg/dL (1.6-2.6) 10/19/23 14:34 BUN 16 mg/dL (7-18) 04/16/24 10:58 Creatinine 0.53 mg/dL (0.55-1.02) L 04/16/24 10:58 Glucose 90 mg/dL (74-106) 04/16/24 10:58 TSH 2.530 uIU/mL (0.358-3.740) 05/13/24 14:03 COAG Pre-Assessment Diagnosis/Proposed Procedure Planned Operative Procedure(s): COLONOSCOPY Anesthesia History 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 When Was Last Pacemaker Check QUESTION #4 FULL TEXT: You/Your Family Experience fever (hyperthermia) with Anesthesia Last Oral Intake Last Oral intake: Last Oral Intake NPO since 08:00 05/20/24 10:11 Meds taken in AM with sips of No 05/20/24 10:11 water? Meds patient instructed to take am of surgery PONV PONV - fitness centre manager: PONV - fitness centre manager Female Yes 05/16/24 10:36 HX of Motion Sickness No 05/16/24 10:36 HX of N/V After Surgery No 05/16/24 10:36 Non-Smoker No 05/16/24 10:36 Duration of Surgery greater No 05/16/24 10:36 than 60 minutes Number of Risk Factors 1 05/16/24 10:36 PONV Score Low Risk 05/16/24 10:36 Height & Weight Height & Weight: Anesthesia: Height & Weight Height 5 ft 5 in 05/20/24 10:11 Weight: 102.6 kg 05/20/24 10:11 Body Mass Index (BMI) 37.6 05/20/24 10:11 Respiratory Assessment Respiratory Assessment - fitness centre manager: Respiratory Tract Infection Hx - fitness centre manager Hx Respiratory Tract Infection No 05/16/24 10:36 STOP Sleep Apnea STOP Sleep Apnea - fitness centre manager: STOP Sleep Apnea - fitness centre manager Hx Hypertension No 05/16/24 10:36 Hx Sleep Apnea No 05/16/24 10:36 CPAP BIPAP Do you snore loudly (louder No 05/16/24 10:36 than talking or can be heard Do you often feel tired/ No 05/16/24 10:36 fatigued/ sleepy during daytime? Has anyone observed you stop No 05/16/24 10:36 breathing during sleep? STOP Results Negative 05/16/24 10:36 QUESTION #5 FULL TEXT : Do you snore loudly (louder than talking or can be heard through closed doors)? 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 Specify any problems Hx of Preganancy in last 3 No 05/16/24 10:36 Months Nurse Filling Out Transfusion [id number] 05/16/24 10:36 & Questions: Date: 05/16/24 05/16/24 10:36 Time: 10:38 05/16/24 10:36 Patient unable to answer at this time (ie. 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 - fitness centre manager: /Reproductive Hx- fitness centre manager Hx Now No 05/16/24 10:36 Gestational Age (in weeks): EDC: Hx Hx Para Hx Section SAB No 05/16/24 10:36 Active Medications Active Medications: Current Medications Generic Name Dose Route Start Last Admin Trade Name Freq PRN Reason Stop Dose Admin Sodium Chloride 10 - 40 ml 05/20/24 09:56 05/20/24 10:14 0.9% Saline Lock 10 Ml Syringe IV 10 ml UD PRN Administration SALINE FLUSH PFS Medical History Anemia Easy bruising Weight gain Abdominal pain Blood in stool Anxiety Depression Heart murmur Colitis Constipation Hemorrhoids Back pain Marijuana smoker Marijuana abuse Home Medications ?Medication ?Instructions ?Recorded ?Last Taken ?Type NK 05/16/24 Unknown History Allergy/AdvReac Type Severity Reaction Status Date / Time aspirin Allergy Severe UNKNOWN Verified 05/20/24 09:54 Penicillins AdvReac Mild Itching Verified 05/20/24 09:54 Family History Father Hypertension CAD (coronary artery disease) Uncle Cancer skin Aunt Cancer brain Surgical History S/P section Social History Smoking Status: Current every day smoker tobacco type: cigarettes alcohol intake: never substance use type: marijuana Review of Systems (Anesthesia) ROS Narrative System reviewed and no additional complaints, except as documented.
--- NOTE | 2024-05-20 10:23 | HP.PCM_ITS ---
History and Physical Date of Admission: 05/20/24 Chief Complaint: constipation, abdominal pain Details: LEONIDAS MONROE, is a 39 F who presents to the office today for establishment with [facility]. Pt has a PMHx of HTN, GERD, depression, and a heart murmur. She is here today for increasing abdominal pain and constipation. She tells me she was diagnosed with colitis at age 16 with a colonoscopy. She was on asacol for a time period but discontinued it. For the past four years she has been struggling with GI symptoms with abdominal pain, constipation, joint pain, heartburn and nausea. She has taken medication for constipation in the past and says they do not work. She does not want to take miralax daily. She is having problems with working a she feels too unwell to work. She is unsure when her last colonoscopy was. ROS Const Constitutional: Positive for fatigue; No fever(s) or weight change ENT ENT: No difficulty swallowing Gastro GI: Positive for abdominal pain, bloating, change in bowel habits, constipation, excessive flatus, Blood in stool and nausea/dyspepsia; No belching, change in stool character, coffee ground emesis, cramping, diarrhea, heartburn, difficulty swallowing, feeling full early, incontinent of stools, Vomiting blood/hematemesis, loose stools, Black,tarry stools, pain with swallowing, vomiting or other Musc Musculoskeletal: Positive for back pain, muscle cramps, numbness and tingling; No joint pain Skin Skin: Positive for dry skin; No yellowing of the eye or itchy eyes Neuro Neurology: Positive for numbness and tingling Psych Psychiatric: Positive for anxiety, No depression and Positive for obsessions/compulsions Endo Endocrine: Positive for fatigue; No weight change Aller/Imm Allergy/Immunologic: No itchy eyes Anthony/Lymp Hematologic/Lymphatic: No easy bleeding or easy bruising Exam Const General: cooperative and comfortable Nutritional Appearance: average body habitus and well nourished [facility] Head: normal to inspection Ears: hearing grossly normal bilaterally Nose: external nose normal Throat: posterior oropharynx normal Eyes General: appearance normal, both eyes and all related structures Neck Neck: normal visual inspection Chest Chest palpation & inspection: normal inspection of the chest Resp Effort & Inspection: normal respiratory effort GI Inspection: normal to inspection Percussion: normal to percussion Palpation: no hepatosplenomegaly Skin General: no rashes or lesions noted Neuro General: patient alert Extrem General: normal to inspection Psych Affect: normal affect Assessment and Plan Assessment and Plan (1) Abdominal pain: Status: Acute Plan: Pt is a 39 to female here today for evaluation of abdominal pain, nausea, constipation and heartburn which has been going on for 4 years. She tells me she was diagnosed with colitis as a teenager and was on asocal but has not had f/u in recent years. She is unsure when her last scopes were. I will order blood work for IBD, celiac or other autoimmune conditions. I ordered stool testing. To rule out obstruction I ordered KUB. SHe will be scheduled for EGD and colonos copy. I will start her on Linzess for constipation and abdominal pain as she has tried other medications and will not take daily miralax. Differental diangosis includes IBS, IBD, celiac, or food allergies. -KUB -EGD and Colonoscopy -Blood work and stool test -Prescribed Linzess -f/u in 3 months - (2) Constipation: Status: Acute Orders: Orders Allergen, Food Profile 14 Today R10.9 - Unspecified abdominal pain Erythrocyte Sed Rate Today R10.9 - Unspecified abdominal pain IBD Expanded Profile Today R10.9 - Unspecified abdominal pain RISHABH + Protein Elect, Serum Today R10.9 - Unspecified abdominal pain Immunoglobulins G/A/M/E Today R10.9 - Unspecified abdominal pain Ova and Parasites 8623 Today K58.9 - Irritable bowel syndrome without diarrhea, R10.9 - Unspecified abdominal pain Pancreatic Elastase, Fecal Today R10.9 - Unspecified abdominal pain Stool Lactoferrin/WBC Today K58.9 - Irritable bowel syndrome without diarrhea, R10.9 - Unspecified abdominal pain Calprotectin, Stool Today R10.9 - Unspecified abdominal pain CBC W/Diff, Automated Today R10.9 - Unspecified abdominal pain Comprehensive Metabolic Profil Today R10.9 - Unspecified abdominal pain Celiac Disease Profile Today R10.9 - Unspecified abdominal pain ENTERIC PATHOGEN PANEL STOOL Today K58.9 - Irritable bowel syndrome without diarrhea, R10.9 - Unspecified abdominal pain RENE Comprehensive Panel Today R10.9 - Unspecified abdominal pain ANCA Today R10.9 - Unspecified abdominal pain Thyroid Stim Hormone (TSH) Today R10.9 - Unspecified abdominal pain T4 Free Direct Today R10.9 - Unspecified abdominal pain Free T3 Today R10.9 - Unspecified abdominal pain LDH Today R10.9 - Unspecified abdominal pain CRP Today R10.9 - Unspecified abdominal pain Abdomen Single View Today K59.00 - Constipation, unspecified Medications: New linaclotide (Linzess) 72 mcg PO QAM 30 caps 3RF I have examined the patient and the H&P has been reviewed. There are no clinical changes since date of exam. Able to
--- NOTE | 2024-05-20 11:00 | COLBX_PTH ---
PATHOLOGY RESULTS PATIENT: LEONIDAS MONROE LOC: EN U#:[id number] AGE/SX: 39/F ROOM: RE05/20/[address]: Dr. Po Frost DO : 1985 BED: DIS: 05/20/2024 SPEC #: [id number] RECD: 05/20/24 12:05 STATUS: UTE JAMESON #: [id number] JOSÉ: 05/20/24 11:[address]: Po Frost DEPT: SURGICAL PATHOLOGY RECD BY: Luis Chandler ENTERED: 05/20/24 12:50 SP TYPE: COLON BX OTHR DR: Silva Jaime MD Tissues: Duodenum, NOS Gastric mucous membrane Ileum, NOS COLON BIOPSY Procedures: Surgery Specimen Level IV HEADER OPERATION: Colonoscopy, EGD with biopsy PRE-OP DIAGNOSIS: Constipation, abdominal pain TISSUE SUBMITTED: A- Duodenum biopsy, B- Gastric ulcer biopsy, C- Terminal ileum biopsy, D- Random colon biopsy MICROSCOPIC DIAGNOSIS A. Duodenum, biopsy: Fragments of duodenal mucosa with focal villous blunting, flattening, gastric metaplasia and moderate chronic inflammation. B. Gastric ulcer, biopsy: Moderate chronic active gastritis. See comment. C. Terminal ileum, biopsy: Fragments of small intestinal mucosa, no pathologic diagnosis. See comment. D. Colon, random biopsy: Fragments of colonic mucosa, no pathologic diagnosis. See comment. 05/21/2024 COMMENT B. The results of immunohistochemistry for Helicobacter pylori will be reported separately ([id number]). C. Prominent lymphoid aggregates are noted. D. A fragment of unremarkable small intestinal mucosa is also noted. Correlation with clinical, endoscopic findings and appropriate follow up are necessary. MICROSCOPIC DESCRIPTION Slides are reviewed. GROSS DESCRIPTION A. Received in fixative is one container labeled with the patient's name and designated Duodenum biopsy. The specimen consists of multiple irregular fragments of light viveros soft tissue that in aggregate measure 0.6 x 0.6 x 0.1 cm. The specimen is totally submitted in one cassette. B. Received in fixative is one container labeled with the patient's name and designated Gastric ulcer biopsy. The specimen consists of multiple irregular fragments of light viveros soft tissue that in aggregate measure 1.0 x 0.4 x 0.1 cm. The specimen is totally submitted in one cassette. C. Received in fixative is one container labeled with the patient's name and designated Terminal ileum biopsy. The specimen consists of two irregular fragments of light viveros soft tissue that in aggregate measure 1.0 x 0.2 x 0.1 cm. The specimen is totally submitted in one cassette. D. Received in fixative is one container labeled with the patient's name and designated Random colon biopsy. The specimen consists of multiple irregular fragments of light viveros soft tissue that in aggregate measure 2.0 x 0.6 x 0.1 cm. The specimen is totally submitted in one cassette. SJ 05/20/2024 TC:2 CPT:28332h0
--- NOTE | 2024-05-20 11:00 | IMM_PTH ---
PATHOLOGY RESULTS PATIENT: LEONIDAS MONROE LOC: EN U#:[id number] AGE/SX: 39/F ROOM: RE05/20/[address]: Dr. Po Frost DO : 1985 BED: DIS: 05/20/2024 SPEC #: [id number] RECD: 05/20/24 13:36 STATUS: UTE REQ #: [id number] JOSÉ: 05/20/24 11:[address]: Po Frost DEPT: IMMUNOHISTOCHEMISTRY RECD BY: Prateek Alvarado ENTERED: 05/20/24 13:37 SP TYPE: IMMUNO OTHR DR: Silva Jaime MD Tissues: Gastric mucous membrane Procedures: H Pylori (initial) PHYSICIAN & INSTITUTION [place] [id number] SPECIMEN INFORMATION: Tissue Source: B- Gastric ulcer biopsy Clinical Info: Constipation, abdominal pain Specimen Number: [id number] CPT code: 07364 METHODOLOGY: Deparaffinized sections of prefer/formalin-fixed tissue or PAP/DQ stained slides are incubated with monoclonal/polyclonal antibodies/oligonucleotide probes. Localization is made via biotin free immunoperoxidase method. Appropriate controls are performed and reacted as expected. Results on target cell population are indicated in the following table: RESULTS: ANTIBODY / CLONE RESULT Block B H Pylori (polyclonal) positive These tests were developed and their performance characteristics determined by [facility]. They may not have been cleared or approved by the U.S. Food and Drug Administration. The FDA has determined that such clearance or approval is not necessary. The above immunohistochemical/dualISH markers are ordered and reviewed by the Pathologist. INTERPRETATION: B. Gastric ulcer, biopsy: Positive for numerous H.pylori organisms. JENNIFER/ 05/21/2024
--- NOTE | 2024-05-20 11:44 | OP.CCLET_ITS ---
05/20/2024 Silva Jaime Md Re : Upper GI endoscopy procedure for Genevieve Bello Dear [place]ison This procedure was performed on Monday, May 20, 2024. My impressions and recommendations are as follows: Impressions : - Normal esophagus. - Gastritis. Biopsied. - Non-bleeding gastric ulcer with no stigmata of bleeding. Biopsied. - No gross lesions in the first portion of the duodenum. Biopsied. Recommendations : - Patient has a contact number available for emergencies. The signs and symptoms of potential delayed complications were discussed with the patient. Return to normal activities tomorrow. Written discharge instructions were provided to the patient. - Resume previous diet. - Continue present medications. - Await pathology results. - Repeat upper endoscopy for surveillance. My findings are described in the full procedure note, which is enclosed. If I can be of further assistance, please feel free to contact me at . Sincerely, Po Frost, 05/20/2024 11:44:04 AM This report has been signed electronically.
--- NOTE | 2024-05-20 11:44 | OP.EGD_ITS ---
Patient Name: Genevieve Bello Procedure Date: 05/20/2024 11:08 AM Date of : 1985 Age: 39 Procedure: Upper GI endoscopy Indications: Epigastric abdominal pain, Functional Dyspepsia Providers: Po Frost DO Referring MD: Silva Jaime Md Medicines: Monitored Anesthesia Care Patient Profile: This is a 39 year old female. Refer to note in patient chart for documentation of history and physical. Patient has symptoms of acute epigastric abdominal pain, chronic epigastric abdominal pain, chronic dyspepsia and chronic nausea. Complications: No immediate complications. Procedure: Pre-Anesthesia Assessment: - Prior to the procedure, a History and Physical was performed, and patient medications and allergies were reviewed. The patient is competent. The risks and benefits of the procedure and the sedation options and risks were discussed with the patient. All questions were answered and informed consent was obtained. Patient identification and proposed procedure were verified by the physician in the pre-procedure area. Mental Status Examination: alert and oriented. Airway Examination: normal oropharyngeal airway and neck mobility. Respiratory Examination: clear to auscultation. CV Examination: normal. Prophylactic Antibiotics: The patient does not require prophylactic antibiotics. Prior Anticoagulants: The patient has taken no anticoagulant or antiplatelet agents except for NSAID medication. ASA Grade Assessment: II - A patient with mild systemic disease. After reviewing the risks and benefits, the patient was deemed in satisfactory condition to undergo the procedure. The anesthesia plan was to use monitored anesthesia care (MAC). Immediately prior to administration of medications, the patient was re-assessed for adequacy to receive sedatives. The heart rate, respiratory rate, oxygen saturations, blood pressure, adequacy of pulmonary ventilation, and response to care were monitored throughout the procedure. The physical status of the patient was re-assessed after the procedure. After obtaining informed consent, the endoscope was passed under direct vision. Throughout the procedure, the patient's blood pressure, pulse, and oxygen saturations were monitored continuously. The Colonoscope was introduced through the mouth, and advanced to the second part of duodenum. The upper GI endoscopy was accomplished without difficulty. The patient tolerated the procedure well. Scope In: 11:20:51 AM Scope Out: 11:24:52 AM Total Procedure Duration Time 0 hours 4 minutes 1 second Findings: The examined esophagus was normal. Localized mild inflammation characterized by erosions and erythema was found in the gastric body. Biopsies were taken with a cold forceps for histology. Verification of patient identification for the specimen was done. Biopsies were taken with a cold forceps for Helicobacter pylori testing. Verification of patient identification for the specimen was done. Estimated blood loss was minimal. One non-bleeding cratered gastric ulcer with no stigmata of bleeding was found in the gastric antrum. The lesion was 5 mm in largest dimension. Biopsies were taken with a cold forceps for histology. Verification of patient identification for the specimen was done. Estimated blood loss was minimal. No gross lesions were noted in the first portion of the duodenum. Biopsies were taken with a cold forceps for histology. Verification of patient identification for the specimen was done. Estimated blood loss was minimal. Impression: - Normal esophagus. - Gastritis. Biopsied. - Non-bleeding gastric ulcer with no stigmata of bleeding. Biopsied. - No gross lesions in the first portion of the duodenum. Biopsied. Recommendation: - Patient has a contact number available for emergencies. The signs and symptoms of potential delayed complications were discussed with the patient. Return to normal activities tomorrow. Written discharge instructions were provided to the patient. - Resume previous diet. - Continue present medications. - Await pathology results. - Repeat upper endoscopy for surveillance. Procedure Code(s): --- Professional --- 36736, Esophagogastroduodenoscopy, flexible, transoral; with biopsy, single or multiple CPT copyright 2021 [employer]. All rights reserved. The codes documented in this report are preliminary and upon brine supervisor review may be revised to meet current compliance requirements. Po Frost DO 05/20/2024 11:44:04 AM This report has been signed electronically. Number of Addenda: 0 Note Initiated On: 05/20/2024 11:08 AM
--- NOTE | 2024-05-20 11:46 | OP.CCLET_ITS ---
05/20/2024 Silva Jaime Md Re : Colonoscopy procedure for Genevieve Bello Dear [place]ison This procedure was performed on Monday, May 20, 2024. My impressions and recommendations are as follows: Impressions : - Hemorrhoids found on perianal exam. - Congested mucosa in the recto-sigmoid colon, in the sigmoid colon, in the transverse colon and in the ascending colon. Biopsied. - The examined portion of the ileum was normal. Biopsied. Recommendations : - Discharge patient to home. - Resume previous diet. - Continue present medications. - Await pathology results. - Repeat colonoscopy in 10 years for screening purposes. My findings are described in the full procedure note, which is enclosed. If I can be of further assistance, please feel free to contact me at . Sincerely, Po Frost, 05/20/2024 11:46:11 AM This report has been signed electronically.
--- NOTE | 2024-05-20 11:46 | OP.COLON_ITS ---
Patient Name: Genevieve Bello Procedure Date: 05/20/2024 11:25 AM Date of : 1985 Age: 39 Procedure: Colonoscopy Indications: Chronic diarrhea Providers: Po Frost DO Referring MD: Silva Jaime Md Medicines: Monitored Anesthesia Care Patient Profile: This is a 39 year old female. Refer to note in patient chart for documentation of history and physical. Patient has symptoms of acute epigastric abdominal pain, chronic epigastric abdominal pain, chronic dyspepsia and chronic nausea. Last Colonoscopy: none. The patient's first colonoscopy is today. Complications: No immediate complications. Procedure: Pre-Anesthesia Assessment: - Prior to the procedure, a History and Physical was performed, and patient medications and allergies were reviewed. The patient is competent. The risks and benefits of the procedure and the sedation options and risks were discussed with the patient. All questions were answered and informed consent was obtained. Patient identification and proposed procedure were verified by the physician in the pre-procedure area. Mental Status Examination: alert and oriented. Airway Examination: normal oropharyngeal airway and neck mobility. Respiratory Examination: clear to auscultation. CV Examination: normal. Prophylactic Antibiotics: The patient does not require prophylactic antibiotics. Prior Anticoagulants: The patient has taken no anticoagulant or antiplatelet agents except for NSAID medication. ASA Grade Assessment: II - A patient with mild systemic disease. After reviewing the risks and benefits, the patient was deemed in satisfactory condition to undergo the procedure. The anesthesia plan was to use monitored anesthesia care (MAC). Immediately prior to administration of medications, the patient was re-assessed for adequacy to receive sedatives. The heart rate, respiratory rate, oxygen saturations, blood pressure, adequacy of pulmonary ventilation, and response to care were monitored throughout the procedure. The physical status of the patient was re-assessed after the procedure. After I obtained informed consent, the scope was passed under direct vision. Throughout the procedure, the patient's blood pressure, pulse, and oxygen saturations were monitored continuously. The Colonoscope was introduced through the anus and advanced to the terminal ileum. The colonoscopy was performed without difficulty. The patient tolerated the procedure well. The quality of the bowel preparation was adequate. The terminal ileum, ileocecal valve, appendiceal orifice, and rectum were photographed. Scope In: 11:28:06 AM Scope Out: 11:38:53 AM Total Procedure Duration Time 0 hours 10 minutes 47 seconds Findings: Hemorrhoids were found on perianal exam. An area of mildly congested mucosa was found in the recto-sigmoid colon, in the sigmoid colon, in the transverse colon and in the ascending colon. Biopsies were taken with a cold forceps for histology. Verification of patient identification for the specimen was done. Estimated blood loss was minimal. The terminal ileum appeared normal. Biopsies were taken with a cold forceps for histology. Verification of patient identification for the specimen was done. Estimated blood loss was minimal. Impression: - Hemorrhoids found on perianal exam. - Congested mucosa in the recto-sigmoid colon, in the sigmoid colon, in the transverse colon and in the ascending colon. Biopsied. - The examined portion of the ileum was normal. Biopsied. Recommendation: - Discharge patient to home. - Resume previous diet. - Continue present medications. - Await pathology results. - Repeat colonoscopy in 10 years for screening purposes. Procedure Code(s): --- Professional --- 43926, Colonoscopy, flexible; with biopsy, single or multiple CPT copyright 2021 [employer]. All rights reserved. The codes documented in this report are preliminary and upon tunnel man review may be revised to meet current compliance requirements. Po Frost DO 05/20/2024 11:46:11 AM This report has been signed electronically. Number of Addenda: 0 Note Initiated On: 05/20/2024 11:25 AM
--- NOTE | 2024-05-20 11:48 | PCM.POST.ANE ---
Anesthesia: Postop Eval I Current Vital Signs Temperature: 97 F Pulse Rate: 81 Blood Pressure: 103/63 Respiratory Rate: 18 Pulse Ox: 97 Oxygen Delivery Method: Room Air Assessment Airway patent: Yes Spontaneous unlabored respirations: Yes Mental status: Awake and Calm nausea: No Vomiting: No Anesthesia Complication: No Fluid Hydration Crystalloid volume administer (ml): 60 Total IV fluid infused: 60 Progress Note Anesthesia document: Postop Eval 1 completed: Yes
--- NOTE | 2024-05-20 15:50 | PCM.POSTANE2 ---
Anesthesia Postop Eval I Sum Postop Eval Completion status Anesthesia document: Postop Eval 1 completed: Yes Anesthesia Postop Eval I Summary Anesthesia Postop Eval I Summary: Anesthesia Postop Eval I: Assessment Summary Airway patent Yes 05/20/24 11:48 [email or web address] Spontaneous unlabored Yes 05/20/24 11:48 [email or web address] respirations Mental status Awake,Calm 05/20/24 11:48 [email or web address] nausea No 05/20/24 11:48 [email or web address] Vomiting No 05/20/24 11:48 [email or web address] Anesthesia Postop Eval I: Fluid Summary Crystalloid volume administer 60 05/20/24 11:48 [email or web address] (ml) Colloids volume administered ( ml) Blood Product volume administered (ml) Total IV fluid infused 60 05/20/24 11:48 [email or web address] Anesthesia Postop Eval I: Summary Notes Anesthesia Complication No 05/20/24 11:48 [email or web address] Anesthesia Complication Comment: Post-operative progress note Anesthesia: Postop Eval II Evaluation Mental status: Awake and Calm Pain Level: 0 nausea: No Vomiting: No Complications Anesthesia Complication: No
== END 2024-05-20 12:24 | disposition home or self-care (01) ==
LOC: EN 09:42 → AC 09:45
PROVIDERS: PCP Family Medicine; Referring Provider Family Medicine; Visit Provider Internal Medicine Gastroenterology
PROC: 0DJD8ZZ Inspection of Lower Intestinal Tract, Via Natural or Artificial Opening Endoscopic (ICD-10-PCS; CPT 45378; principal; 2024-05-20 10:55)
DX: K29.50 Unspecified chronic gastritis without bleeding (principal); K64.9 Unspecified hemorrhoids; K21.9 Gastro-esophageal reflux disease without esophagitis; K59.00 Constipation, unspecified; I10 Essential (primary) hypertension; R01.1 Cardiac murmur, unspecified; F32.A Depression, unspecified; F17.210 Nicotine dependence, cigarettes, uncomplicated; Z88.0 Allergy status to penicillin
CPT/HCPCS: 45380; 88305; 88342; A4216; J2405

== ENCOUNTER 2024-07-22 14:34 | Outpatient (RCR) | payer MEDICAID, SELFPAY | END 2024-07-23 23:59 | LOC: NS 14:34 | PROVIDERS: PCP Family Medicine; Visit Provider Student in an Organized Health Care Education/Training Program | DX: Z71.3 Dietary counseling and surveillance (principal); K90.0 Celiac disease | CPT/HCPCS: 97802 ==

== ENCOUNTER 2024-09-26 08:54 | Emergency (ER) | payer MEDICAID, SELFPAY ==
[2024-09-26 08:55] VITALS: BP 160/98; PULSE 92; RESP 16; TEMP 36.1; O2SAT 100; BMI 38.2
--- NOTE | 2024-09-26 09:10 | ED.VIS.BACK ---
HPI History of Present Illness Chief Complaint: Back Informant: patient Onset/Context/Timing Onset: Days Context: Gradual Onset Injury: lifting, twisting, bending and fall Timing: Continuous Quality: Sharp and Aching Location: Thoracic and Lumbar Current Severity: Mild Maximum Severity: Moderate Worsened by: improves with Movement Relieved by: Nothing Associated Symptoms Associated Symptoms: Negative for Numbness, Tingling, Radiation to Right Leg, Radiation to Left Leg, Fever, Abdominal Pain, Dysuria, Unable to Ambulate, Unable to Transfer, Urinary Retention, Urinary Incontinence, Constipation or Fecal Incontinence Narrative Narrative: 39-year-old female with acute on chronic low back pain. States has been doing lifting and carrying stuff recently moved. She is also had some falls. No prior back history. She has had prior back x-ray showing scoliosis but no compression fractures. She denies any numbness or tingling denies any upper or lower extremity weakness. No fever. No bowel or bladder incontinence or retention. Prior similar symptoms: Yes Recent Illness/Hospitalization: No PFSH PFSH Medical History Anemia Easy bruising Weight gain Abdominal pain Blood in stool Anxiety Depression Heart murmur Colitis Constipation Hemorrhoids Back pain Marijuana smoker Marijuana abuse Home Medications ?Medication ?Instructions ?Recorded ?Last Taken ?Type omeprazole 20 mg capsule,delayed 20 mg PO BID #60 caps 05/24/24 Unknown Rx release metaxalone 800 mg tablet 800 mg PO TID 7 days #21 tabs 09/26/24 Unknown Rx Allergy/AdvReac Type Severity Reaction Status Date / Time aspirin Allergy Severe UNKNOWN Verified 09/26/24 08:55 Penicillins AdvReac Mild Itching Verified 09/26/24 08:55 Family History Father Hypertension CAD (coronary artery disease) Uncle Cancer skin Aunt Cancer brain Surgical History S/P section Social History Smoking Status: Current every day smoker tobacco type: cigarettes alcohol intake: never substance use type: marijuana ROS ROS ED ROS Narrative No recent illness. Constitutional Constitutional ED: Denies chills or fever(s) Eyes Eyes: Denies blurry vision ENT ENT ED: Denies ear pain Cardiovascular Cardiovascular: Denies chest pain Gastrointestinal Gastrointestinal: Denies abdominal pain Genitourinary Genitourinary ED: Denies dysuria Musculoskeletal Musculoskeletal: Denies arthralgias Integumentary Denies abscess Neurologic Neurologic: Denies headache(s) Psychiatric Psychiatric: Denies anxiety Endocrine Endocrinology: Denies cold intolerance Hematologic/Lymphatic Hematologic/Lymphatic: Denies easy bleeding, easy bruising or lymphadenopathy Allergic/Immunologic Allergic/Immunologic ED: Denies mouth swelling EXAM Physical Exam Narrative Exam Narrative: Well-appearing 39-year-old female. Vital signs stable afebrile. H EENT exam pupils round reactive light. Extra motions are intact. No signs of trauma to her face or scalp. Neck nontender. Trachea midline. Lungs clear to auscultation bilaterally. Heart regular rhythm rate about 90 no murmur. Chest wall ribs nontender. Abdomen soft nontender. Pelvic girdle intact. Hips are nontender. No shortening or rotation. She has normal capability lead strength of both hands and range of motion of both upper and lower extremities. Normal dorsi plantarflexion. Nontender no deformity. Back she has some reproducible para thoracic and lumbar soft tissue tenderness. There is no ecchymosis or bruising. There is no significant spine tenderness. Neurologically she is awake and alert. He has normal motor strength and sensation. No cauda equina. No weakness. Const Vital Signs: 09/26/24 08:55 Temperature 97 F L Temperature Source Temporal Pulse Rate 92 Respiratory Rate 16 Blood Pressure 160/98 H Blood Pressure Mean 118 Pulse Ox 100 Oxygen Delivery Method Room Air Positive well nourished and well developed; Negative for cachectic, contractures or unkempt General Appearance ED: well developed and NAD; Negative for unkempt, cachectic, contractures or pallor Nutritional Appearance: Negative for cachectic HEENT Reports moist mucous membranes Eyes PERRL and EOMs intact bilaterally Neck no lymphadenopathy, supple and no JVD General: Negative for tenderness Resp normal respiratory effort and clear to auscultation bilaterally Cardio regular rate, regular rhythm, S1 normal heart sound, S2 normal heart sound and no murmurs GI normal to inspection, nondistended, normoactive bowel sounds, soft to palpation, non-tender, non-distended and no masses Palpation: Negative for tender, guarding or rebound tenderness present Back/Spine normal to inspection; Negative for no thoracic nor lumbar tenderness Back/Spine Narrative: Parathoracic paralumbar soft tissue tenderness consistent with myofascial strain and spasm. No bruising. No significant spine tenderness. No redness or warmth. No signs of trauma. Cervical Spine: Negative for cervical spine tenderness and Negative for paracervical muscle tenderness Thoracic Spine / Upper Back: paraspinal muscle tenderness Neuro oriented x3 and no sensory deficits noted Sensorium / Orientation: alert; Negative for confused, lethargic or stuporous Motor Exam: strength 5/5 throughout Psych mental status grossly normal Appearance: Negative for unkempt Attitude: No agitated Mood & Affect: Negative for depressed Skin no rashes or lesions noted and no wounds General Skin Exam: Negative for jaundice or pallor Lesions: No lesion noted Rashes: No rashes noted Trauma: Negative for abrasion or puncture Wounds: Negative for wounds noted MDM MDM MDM Narrative Medical decision making narrative: 39-year-old female with acute on chronic back pain recently moved is been doing a lot of lifting. Benign exam. She does not need imaging or an MRI. There is no signs of weakness or radiculopathy. I am injection of Toradol. P.o. Skelaxin. Prescription for Skelaxin at home. Discharge Plan Triage Chief Complaint: Back ED Provider: Jett Brooks Dx/Rx/DC Orders Clinical Impression: Back strain, Back muscle spasm Instructions: ED Back Pain (Acute or Chronic) Prescriptions: New metaxalone 800 mg tablet 800 mg PO TID 7 Days Qty: 21 0RF No Action omeprazole 20 mg capsule,delayed release(DR/EC) 20 mg PO BID Qty: 60 2RF Primary Care Provider: Silva Jaime Referrals: Silva Jaime MD [Primary Care Provider] - 1 Week if not improving Activity Restrictions/Additional Instructions: For the back pain and muscle spasms hot shower, warm bath, whirlpool, massage. Motrin for pain and inflammation. Tylenol for pain also. The muscle relaxant Skelaxin 1 pill 3 times a day usually by day 3 or for you start feeling much better. Follow-up with your doctor if not improving. Print Language: Bulgarian Disposition Disposition: Home, Self Care
[2024-09-26] MEDS: Ketorolac 60 MG/2 ML Vial IM (09:11)
[2024-09-26] MEDS: Metaxalone 800 MG Tablet PO (09:35)
== END 2024-09-26 09:38 | disposition home or self-care (01) ==
LOC: ED 09:25
PROVIDERS: Emergency Provider Emergency Medicine; PCP Family Medicine; Visit Provider Emergency Medicine
DX: S39.012A Strain of muscle, fascia and tendon of lower back, initial encounter (principal); X50.0XXA Overexertion from strenuous movement or load, initial encounter; M41.9 Scoliosis, unspecified; G89.29 Other chronic pain; M62.830 Muscle spasm of back; Z88.0 Allergy status to penicillin; F17.210 Nicotine dependence, cigarettes, uncomplicated
CPT/HCPCS: 96372; 99282

== ENCOUNTER 2025-02-04 11:08 | Emergency (ER) | payer MEDICAID, SELFPAY ==
[2025-02-04 11:08] VITALS: BP 130/86; PULSE 59; RESP 16; TEMP 36.4; O2SAT 100
--- NOTE | 2025-02-04 11:47 | RAD_ITS ---
EXAM: XR Lumbosacral Spine, 2 or 3 Views CLINICAL INDICATION: PAIN TECHNIQUE: Frontal and lateral views of the lumbar spine and sacrum. COMPARISON: No relevant prior studies available. FINDINGS: VERTEBRAE: Unremarkable. No acute fracture. Normal alignment. SACRUM/COCCYX: Unremarkable as visualized. No acute fracture. DISC SPACES: No acute findings. No significant narrowing. SOFT TISSUES: Unremarkable. RAD/Lumbar Spine 2 or 3 Views IMPRESSION: No acute fracture. Reading Location: [facility] [place]
--- NOTE | 2025-02-04 12:00 | ED.VIS.BACK ---
HPI History of Present Illness Chief Complaint: Back Informant: patient Narrative Narrative: Recurrent nontraumatic low back pain since yesterday. Pain down both legs to the feet. Pain worse with movement states burning sensation. Reports difficulty ambulate however is able to drive here. No fever chills or sweats. Denies history of IV drug use. Allergies to aspirin and penicillin. History of celiac disease. Denies any history of gastric ulcers or kidney injury. No Crohn's or ulcerative colitis history. Patient took leftover muscle relaxer yesterday she had meloxicam that she took this morning. This was nearly 6 hours ago. She has not had any recent images. Back pain is managed by PCP has never seen a specialist. Denies any heavy lifting. No loss of bowel or bladder control. Prior similar symptoms: Yes PFSH PFSH Medical History Anemia Easy bruising Weight gain Abdominal pain Blood in stool Anxiety Depression Heart murmur Colitis Constipation Hemorrhoids Back pain Marijuana smoker Marijuana abuse Home Medications ?Medication ?Instructions ?Recorded ?Last Taken ?Type omeprazole 20 mg capsule,delayed 20 mg PO BID #60 caps 05/24/24 Unknown Rx release metaxalone 800 mg tablet 800 mg PO TID 7 days #21 tabs 09/26/24 Unknown Rx diazepam 5 mg tablet 5 mg PO Q8 PRN Muscle Spasm #12 02/04/25 Unknown Rx tabs hydrocodone-acetaminophen 5-325mg 1 tab PO Q6H PRN PRN Pain 3 days 02/04/25 Unknown Rx 5mg-325mg #12 TABLETS prednisone 20 mg tablet 60 mg (3 x 20 mg) PO DAILY #12 02/04/25 Unknown Rx TABLETS Allergy/AdvReac Type Severity Reaction Status Date / Time aspirin Allergy Severe UNKNOWN Verified 09/26/24 08:55 Penicillins AdvReac Mild Itching Verified 09/26/24 08:55 Family History Father Hypertension CAD (coronary artery disease) Uncle Cancer skin Aunt Cancer brain Surgical History S/P section Social History Smoking Status: Current every day smoker tobacco type: cigarettes alcohol intake: never substance use type: marijuana ROS ROS ED Constitutional Constitutional ED: Denies fever(s) ENT ENT ED: Denies sore throat Cardiovascular Cardiovascular: Denies chest pain Respiratory/Chest Respiratory/Chest: Denies cough Gastrointestinal Gastrointestinal: Denies diarrhea or vomiting Genitourinary Genitourinary ED: Denies dysuria, hematuria or urinary frequency Musculoskeletal Musculoskeletal: Reports back pain and other Integumentary Denies rash or wounds Neurologic Neurologic: Reports weakness EXAM Physical Exam Const Vital Signs: 02/04/25 11:08 Temperature 97.6 F L Temperature Source Temporal Pulse Rate 59 L Respiratory Rate 16 Blood Pressure 130/86 H Blood Pressure Mean 100 Pulse Ox 100 Oxygen Delivery Method Room Air Positive well nourished and well developed Constitutional Narrative: Uncomfortable with movement. General Appearance ED: well developed HEENT Reports moist mucous membranes normocephalic and atraumatic Eyes General Eye ED: Yes normal appearance of both eyes Neck full ROM Chest Wall Chest: Negative for tenderness Resp normal respiratory effort and normal air movement Effort and Inspection: symmetric chest movement; Negative for respiratory distress Cardio regular rate, regular rhythm and no murmurs Peripheral Pulses: pulses 2+ throughout GI normal to inspection, nondistended, normoactive bowel sounds and non-tender Palpation: Negative for guarding or rebound tenderness present Back/Spine Back/Spine Narrative: Paralumbar tenderness bilaterally. With straight leg test with her pain in her back and not straight down her leg. Therefore negative straight leg test. 2+ patellar reflex bilaterally. Extremity normal to inspection General Extremety ED: Negative for edema or tenderness General Extremity: Negative for edema Neuro oriented x3 and no sensory deficits noted Sensorium / Orientation: awake and alert Skin no rashes or lesions noted and no wounds MDM MDM MDM Narrative Medical decision making narrative: Interventions / MDM: Differential diagnosis: Lumbar strain, back pain Diagnosis considered but do not suspect: No cauda equina symptoms My EKG interpretation: N/A Imaging independently reviewed and interpreted by myself: Lumbar x-ray 3 views: No acute process good spacing of the disc. External documents reviewed: N/A Test considered but not ordered:N/A ED course: Patient acute on chronic back pain no cauda equina symptoms. No recent image studies. IM Toradol morphine. Prednisone and Valium ordered. Lumbar x-rays for further evaluation with no recent imaging. X-rays normal patient reassured on findings clinically was feeling better. States she cannot do ibuprofen she will use Tylenol short prescription for Valium and Lyle. Prednisone burst to help with symptoms. Outpatient follow-up with her doctor. All questions were answered. Re-evaluation: stable Disposition discussed with patient/family/significant other: Patient Case discussed with consulting clinician: N/A This note was generated with [employer] dictation software. It may contain incorrect words, spelling, and punctuation that were not noted in checking the note before signing. Radiography Diagnostic Testing: Clinical Impression(s) from Imaging Studies Lumbar Spine X-Ray 02/04/25 11:47 IMPRESSION: No acute fracture. Reading Location: [facility] Discharge Plan Triage Chief Complaint: Back ED Provider: Thomas Feliciano Dx/Rx/DC Orders Clinical Impression: Back pain, Lumbar strain Instructions: ED Back Pain (Acute or Chronic) Prescriptions: New hydrocodone-acetaminophen 5-325 mg tablet 1 tab PO Q6H PRN PRN (Reason: Pain) 3 Days Qty: 12 0RF diazepam [diazepam] 5 mg tablet 5 mg PO Q8 PRN (Reason: Muscle Spasm) Qty: 12 0RF prednisone 20 mg tablet 60 mg PO DAILY Qty: 12 0RF No Action omeprazole 20 mg capsule,delayed release(DR/EC) 20 mg PO BID Qty: 60 2RF metaxalone 800 mg tablet 800 mg PO TID 7 Days Qty: 21 0RF Primary Care Provider: Silva Jaime Referrals: Silva Jaime MD [Primary Care Provider] - 1 Week Activity Restrictions/Additional Instructions: Normal lumbar x-ray. Take medication as prescribed, follow-up with your doctor. Print Language: Yoruba Disposition Disposition: Home, Self Care Discharge Date/Time: 02/04/25 14:31
[2025-02-04] MEDS: Ketorolac 30 MG/ML Syringe IM (12:08)
--- OUTSIDE RECORDS SUMMARY | 2025-02-04 21:17 | XMS RPT_ITS | CCD ---
Demographics Address [facility] [address] [place] [address] Mobile Phone Preferred Language en Marital Status Single Nondenominational Affiliation Unknown Race White Ethnic Group Not or Lati no Author Organization [facility] Care Team Providers Care Family Practice Medical Doctor Name Role Phone MD Silva Jaime Primary Care Provider [phone] MD Silva Jaime Referring Provider Dr. Helen Greenfield Attending Provider (Historical), Unknown Primary Care Provider Unav ailable Addison, Chalon Primary Care Unavailable Addison, Chalon Attending Unavailable Lynnette Salomon Attending Unavailable Addison, Chalon Primary Care Unavailable Lynnette Salomon Attending Unavailable Addison, Chalon Primary Care Unavailable Vanessa Ragland Attending Unavailable Vanessa Ragland Referring Unavailable Addison, Chalon Primary Care Unavailable Lynnette Salomon Attending Unavailable Care Physician, No Primary Primary Care Unava ilable Addison, Chalon Referring Unavailable Addison, Chalon Primary Care Unavailable Friend, Po Consulting Unavailable Po Frost Attending Unavailable Addison, Chalon Referring Unavailable AtaLynnette davis Attending Unavailable Addison, Chalon Referring Unavailable Addison, Chalon Primary Care Unavailable Lynnette Salomon Attending Unavailable Addison, Chalon Referring Unavailable Addison, Chalon Primary Care Unavailable Lynnette Salomon Attending Unavailable Lynnette Salomon Referring Unavailable Care Physician, No Primary Primary Care Unava ilable RitchienasovLynnette Attending Unavailable Lynnette Salomon Referring Unavailable Care Physician, No Primary Primary Care Unava ilable Jett Brooks Attending Unavailable Addison, Chalon Primary Care Unavailable Broderick Ayala Attending Unavailable Vanessa Ragland Primary Care Unavailable Raudel Colunga Attending Unavailable Care Physician, No Primary Primary Care Unava ilable Addison, Chalon Primary Care Unavailable Friend, Po Attending Unavailable Addison, Chalon Referring Unavailable LEXX ENAMORADO Referring Unavailable CJ BRIGHT Attending Unavailable LEXX ENAMORADO Attending Unavailable Silva Jaime MD Primary Care Provider Dr. Thomas Feliciano DO Emergency Provider Allergies Allergy Classification Reported Allergen(s) Allergy Type Date of Onset Reaction(s) Facility (4 sources) Aspirin Drug Allergy 6 Other, UNKNOWN [facility] (3 sources) Penicillins Propensity to adverse reactions 4 Itching [facility] (5 sources) Acetaminophen / oxyCODONE; Translations: [OXYCODONE-ACETAM INOPHEN] Drug Allergy 4 Itching [facility] (5 sources) cow milk allergenic extract; Translations: [MILK] Drug Allergy 6 [facility] (5 sources) Grass pollen; Translations: [GRASS POLLEN] Propensity to adverse reactions 6 [facility] Work Phone: (5 sources) Lobster - dietary; Translations: [LOBSTER (CRUSTACEANS)] Propensity to adverse reactions 6 [facility] (5 sources) peanut; Translations: [PEANUTS] Propensity to adverse reactions 6 [facility] (5 sources) Salicylate product; Translations: [SALICYLATES] Propensity to adverse reactions 6 [facility] (5 sources) Animal Dander; Translations: [ANIMAL DANDER] Propensity to adverse reactions to drug 5 Unknown [facility] (1 source) Aspirin Drug Allergy 5 [facility] (1 source) Penicillins Drug allergy (disorder) 5 [facility] (1 source) OTHER; Translations: [OTHER] Propensity to adverse reactions (disorder) 6 [facility] (1 source) HOMEOPATHIC PRODUCTS; Translations: [HOMEOPATHIC PRODUCTS] Propensity to adverse reactions to drug (disorder) 6 [facility] Medications Current Medications Medication Drug Class(es) Dates Sig (Normalized) Sig (Original) Acetaminophen (4 sources) ACETAMINOPHEN (TYLENOL ORAL) Take by mouth. Active acetaminophen 325 mg / HYDROcodone bitartrate 5 mg oral tablet (13 sources) Opioid Agonist Start: 02-04-2025 take 1 tablet by mouth every six hours as needed for pain Hydrocodone-Acetami nophen 5-325 mg tablet Active 1 {tbl} PO EVERY 6 HOURS NEEDED as needed for Pain 12 3 0 February 04, 2025 Back pain Dorsalgia, unspecified Start: 10-19-2015 End: 04-08-2024 Hydrocodone-Acetaminophen 5- 325 mg tablet Discontinued 1 {tbl} PO EVERY 4 HOURS NEEDED as needed for Pain 7 3 August 26, 2023 April 08, 2024 11:59pm Back pain Dorsalgia, unspecified Start: 10-19-2015 End: 08-26-2023 take 1 tablet by mouth every four hours as needed Hydrocodone-Acetaminophen Active 1 TABLE T PO EVERY 4 HOURS NEEDED 7 August 26, 2023 End: 01-27-2025 take 2 tablets by mouth every six hours as needed HYDROcodone-acetaminophen (NORCO) 5-325 mg per tablet Take 2 tablets by mouth every 6 hours as needed. 01/27/2025 Discontinued diazePAM 5 mg oral tablet (1 source) Benzodiazepine Start: 02-04-2025 take 1 tablet by mouth every eight hours as needed for muscle spasms Diazepam 5 mg tablet Active 5 mg PO EVERY 8 HOURS as needed for Muscle Spasm 12 0 February 04, 2025 12:00am doxycycline hyclate 100 mg oral tablet (1 source) Tetracycline-class Drug Start: 10-02-2024 End: 10-09-2024 take 1 tablet by mouth twice daily doxycycline (VIBRA-TABS) 100 mg tablet Indications: Rhinosinusitis Take 1 tablet by mouth two times a day for 7 days. 14 tablet 10/02/2024 10/09/2024 Active ibuprofen 200 mg oral tablet (4 sources) Nonsteroidal Anti-inflammatory Drug take 1 tablet by mouth every six hours as needed ibuprofen (MOTRIN) 200 mg tablet Take 200 mg by mouth every 6 hours as needed. Active omeprazole 20 mg delayed release oral capsule (4 sources) Proton Pump Inhibitor Start: 05-24-2024 take 1 capsule by mouth twice daily Omeprazole 20 mg capsule,delayed release(DR/EC) Active 20 mg PO TWICE A DAY 60 May 24, 2024 12:00am Start: 09-08-2023 End: 04-08-2024 take 1 capsule by mouth once daily Omeprazole 40 mg capsule,delayed release(DR/EC) Discontinued 40 mg PO daily 30 September 08, 2023 1:00am April 08, 2024 11:59pm swallow whole; do not crush, chew, dissolve, cut, break ondansetron 4 mg disintegrating oral tablet (6 sources) Serotonin-3 Receptor Antagonist Start: 12-23-2024 End: 12-30-2024 take 1 tablet by mouth every eight hours as needed ondansetron orally disintegrating (ZOFRAN ODT) 4 mg disintegrating tablet Indications: Nausea and vomiting, unspecified vomiting type Take 1 tablet by mouth every 8 hours as needed for up to 7 days. 21 tablet 12/23/2024 12/30/2024 Active Start: 08-18-2015 End: 08-26-2023 take 1 tablet by mouth every eight hours as needed for nausea Ondansetron 4 MG tablet Discontinued 4 mg PO EVERY 8 HOURS NEEDED as needed for Nausea August 18, 2015 1:00am August 26, 2023 8:51pm OTC NUTRITIONAL SUPPLEMENT (2 sources) OTC NUTRITIONAL SUPPLEMENT Multivitmain Active predniSONE 20 mg oral tablet (5 sources) Start: 02-04-2025 take 3 tablets by mouth once daily Prednisone 20 mg tablet Active 60 mg PO DAILY 12 0 February 04, 2025 12:00am Start: 10-22-2023 End: 04-16-2024 take 2 tablets by mouth once daily Prednisone 20 mg tablet Discontinued 40 mg PO DAILY 10 5 April 09, 2024 12:00am April 16, 2024 10:06am Start: 10-22-2023 take 40 mg by mouth once daily Prednisone Active 40 MG PO DAILY October 22, 2023 12:00am Completed/Discontinued Medications Medication Drug Class(es) Dates Sig (Normalized) Sig (Original) acetaminophen 325 mg / oxyCODONE hydrochloride 5 mg oral tablet (6 sources) Opioid Agonist Start: 04-09-2024 End: 04-16-2024 Oxycodone-Acetamino phen (Percocet) 5-325 mg tablet Discontinued 1 {tbl} PO EVERY 6 HOURS as needed for pain 12 3 0 April 09, 2024 April 16, 2024 10:06am Nonspecific abdominal pain Unspecified abdominal pain Start: 08-18-2015 End: 08-26-2023 Oxycodone-Acetaminophen 1 TA BLET tablet Discontinued 1 - 2 {tbl} PO EVERY 4 HOURS NEEDED as needed for Pain August 18, 2015 1:00am August 26, 2023 8:51pm Start: 08-18-2015 End: 08-26-2023 take 1 tablet by mouth every four hours as needed Oxycodone-Acetaminophen Discontinued 1 - 2 TABLET PO EVERY 4 HOURS NEEDED August 18, 2015 1:00am August 26, 2023 8:51pm cephalexin 500 mg oral capsule (1 source) Cephalosporin Antibacterial Start: 04-08-2024 End: 04-16-2024 Cephalexin 500 mg capsule Discontinued 500 mg PO Q12 April 08, 2024 12:00am April 16, 2024 10:05am ciprofloxacin 500 mg oral tablet (3 sources) Quinolone Antimicrobial Start: 10-22-2023 End: 04-09-2024 take 1 tablet by mouth twice daily Ciprofloxacin Hcl 500 mg tablet Discontinued 500 mg PO TWICE A DAY 14 0 October 22, 2023 12:00am April 09, 2024 12:00am cyclobenzaprine hydrochloride 10 mg oral tablet (12 sources) Muscle Relaxant Start: 10-19-2015 End: 01-27-2025 take 1 tablet by mouth three times daily as needed for muscle spasms Cyclobenzaprine 10 mg tablet Discontinued 10 mg PO THREE TIMES A DAY as needed for Muscle Spasm 15 5 0 August 26, 2023 1:00am April 09, 2024 12:00am Desogestrel / Ethinyl Estradiol (3 sources) Progestin, Estrogen Start: 10-14-2015 End: 01-27-2025 take 1 tablet by mouth once daily, then take 0.15 tablet by mouth once Desogestrel-Ethinyl Estradiol (APRI) 0.15-0.03 mg per tablet Take 1 tablet by mouth once daily. 1 Package 13 10/14/2015 01/27/2025 Discontinued Start: 10-14-2015 take 1 tablet by tree th once daily, then take 0.15 tablet by mouth once Desogestrel-Ethinyl Estradiol (APRI) 0.15-0.03 mg per tablet Take 1 tablet by mouth once daily. 1 Package 13 10/14/2015 Active dicyclomine hydrochloride 10 mg oral capsule (3 sources) Anticholinergic Start: 10-22-2023 End: 04-09-2024 take 2 capsules by mouth every six hours as needed for pain Dicyclomine 10 mg capsule Discontinued 20 mg PO EVERY 6 HOURS NEEDED as needed for abdominal pain October 22, 2023 9:14pm April 09, 2024 12:00am Start: 10-22-2023 take 20 mg by mouth every six hours as needed Dicyclomine Active 20 MG PO EVERY 6 HOURS NEEDED October 22, 2023 9:14pm DULoxetine 30 mg delayed release oral capsule (3 sources) Serotonin and Norepinephrine Reuptake Inhibitor Start: 10-14-2015 End: 01-27-2025 take 1 capsule by mouth once daily DULoxetine (CYMBALTA) 30 mg capsule Indications: Depression with anxiety Take 1 capsule by mouth once daily. 30 capsule 13 10/14/2015 01/27/2025 Discontinued ergocalciferol 1.25 mg oral capsule (4 sources) Provitamin D2 Compound Start: 08-26-2023 End: 04-09-2024 Ergocalciferol (Vitamin D2) 1,250 mcg (50,000 unit) capsule Discontinued 86819 U PO SA August 26, 2023 1:00am April 09, 2024 12:00am Start: 08-26-2023 Ergocalciferol (Vitamin D2) Active 54976 UNIT PO August 26, 2023 1:00am linaclotide 0.072 mg oral capsule (1 source) Guanylate Cyclase-C Agonist Start: 04-16-2024 End: 05-16-2024 take 1 capsule by mouth once daily in the morning Linaclotide (Linzess) 72 mcg capsule Discontinued 72 ug PO EVERY MORNING 20 10April 16, 2024 12:00am May 16, 2024 10:35am metaxalone 800 mg oral tablet (4 sources) Start: 09-26-2024 End: 01-27-2025 take 1 tablet by mouth three times daily metaxalone (SKELAXIN) 800 mg tablet take 1 tablet by mouth three times a day for 7 days 09/26/2024 01/27/2025 Discontinued metroNIDAZOLE 500 mg oral tablet (7 sources) Nitroimidazole Antimicrobial Start: 05-24-2024 End: 06-07-2024 take 1 tablet by mouth every six hours Metronidazole 500 mg tablet Discontinued 500 mg PO EVERY 6 HOURS 56 14 0 May 24, 2024 12:00am June 06, 2024 1:00am June 07, 2024 1:09am Start: 10-22-2023 End: 04-08-2024 take 1 tablet by mouth twice daily Metronidazole 500 mg tablet Discontinued 500 mg PO TWICE A DAY 14 0 October 22, 2023 12:00am April 08, 2024 11:59pm Start: 10-14-2015 End: 01-27-2025 metroNIDAZOLE (METROGEL VAGI NAL) 0.75 % Vaginal Gel Twice weekly vaginally x 6 months after initial course of flagyl 1 Tube 5 10/14/2015 01/27/2025 Discontinued naproxen 500 mg oral tablet (9 sources) Nonsteroidal Anti-inflammatory Drug Start: 10-19-2015 End: 04-08-2024 take 1 tablet by mouth twice daily Naproxen 500 mg tablet Discontinued 500 mg PO TWICE A DAY 14 0 August 26, 2023 1:00am April 08, 2024 11:59pm tetracycline hydrochloride 500 mg oral capsule (1 source) Tetracycline-class Antimicrobial Start: 05-24-2024 End: 06-07-2024 take 1 capsule by mouth every six hours Tetracycline 500 mg capsule Discontinued 500 mg PO EVERY 6 HOURS 56 14 0 May 24, 2024 12:00am June 06, 2024 1:00am June 07, 2024 1:09am Problems Active Problems Problem Classification Problem Date Documented Da te Episodic/Chronic Abdominal pain (6 sources) Abdominal pain; Translations: [Unspecified abdominal pain] Onset: 4 09-08-2023 Episodic Anxiety disorders (15 sources) Anxiety; Translations: [Anxiety disorder, unspecified] Onset: 0 Resolved: 4 09-08-2023 Chronic Esophageal disorders (5 sources) Gastroesophageal reflux disease; Translations: [Gastro-esophageal reflux disease without esophagitis] 09-08-2023 Chronic Essential hypertension (1 source) Hypertensive disorder; Translations: [Essential (primary) hypertension] 04-17-2024 Chronic Gastrointestinal hemorrhage (3 sources) Hematochezia; Translations: [Melena] 09-08-2023 Episodic Heart valve disorders (7 sources) Heart murmur; Translations: [Cardiac murmur, unspecified] 09-08-2023 Episodic Hemorrhoids (9 sources) Hemorrhoids; Translations: [Unspecified hemorrhoids] Onset: 2 09-08-2023 Episodic Immunizations and screening for infectious disease (6 sources) Patient encounter status; Translations: [Encounter for screening for human papillomavirus (HPV)] Onset: 5 01-27-2025 Episodic Intestinal infection (1 source) Infection caused by Helicobacter pylori; Translations: [Other specified bacterial intestinal infections] 05-24-2024 Episodic Menstrual disorders (4 sources) Dysmenorrhea; Translations: [Dysmenorrhea, unspecified] Onset: 6 10-14-2015 Chronic Mood disorders (7 sources) Depressive disorder; Translations: [Depression] Resolved: 4 09-08-2023 Chronic Nausea and vomiting (4 sources) Nausea; Translations: [Nausea] Onset: 5 12-23-2024 Episodic Noninfectious gastroenteritis (12 sources) Colitis; Translations: [Noninfective gastroenteritis and colitis, unspecified] Onset: 4 09-08-2023 Episodic Other acquired deformities (4 sources) Scoliosis deformity of spine; Translations: [Scoliosis, unspecified] Onset: 4 12-28-2013 Chronic Other female genital disorders (6 sources) Abnormal uterine bleeding; Translations: [Abnormal uterine and vaginal bleeding, unspecified] Onset: 6 10-14-2015 Chronic Other female genital disorders (1 source) Abnormal uterine and vaginal bleeding, unspecified; Translations: [Abnormal uterine bleeding] Onset: 6 Chronic Other gastrointestinal disorders (1 source) Irritable bowel syndrome without diarrhea; Translations: [Irritable bowel syndrome, unspecified] Onset: 4 Chronic Other gastrointestinal disorders (1 source) Celiac disease; Translations: [Celiac disease] 05-28-2024 Chronic Other gastrointestinal disorders (3 sources) Constipation; Translations: [Constipation, unspecified] 09-08-2023 Episodic Other nutritional; endocrine; and metabolic disorders (2 sources) Weight gain; Translations: [Abnormal weight gain] 09-08-2023 Episodic Other nutritional; endocrine; and metabolic disorders (1 source) Weight increased; Translations: [Abnormal weight gain] 09-08-2023 Episodic Other screening for suspected conditions (not mental disorders or infectious disease) (4 sources) Cancer cervix screening status; Translations: [Encounter for screening for malignant neoplasm of cervix] Onset: 5 01-27-2025 Episodic Other upper respiratory infections (1 source) Chronic sinusitis, unspecified; Translations: [Unspecified sinusitis (chronic)] 10-02-2024 Chronic Other upper respiratory infections (1 source) Sore throat symptom; Translations: [Acute pharyngitis, unspecified] 10-02-2024 Episodic Personality disorders (4 sources) Borderline personality disorder; Translations: [Borderline personality disorder] Onset: 4 12-26-2013 Chronic Residual codes; unclassified (2 sources) Family history of malignant neoplasm of ovary; Translations: [Family history of malignant neoplasm of ovary] 01-27-2025 Episodic Residual codes; unclassified (1 source) Family history of malignant neoplasm of ovary; Translations: [Family history of ovarian cancer] Onset: 5 Episodic Spondylosis; intervertebral disc disorders; other back problems (13 sources) Chronic low back pain; Translations: [Acute exacerbation of chronic low back pain] Onset: 8 Resolved: 0 08-26-2023 Episodic Sprains and strains (6 sources) Lumbar sprain; Translations: [Sprain of ligaments of lumbar spine, initial encounter] Onset: 8 Resolved: 0 03-19-2010 Episodic Thyroid disorders (1 source) Hypothyroidism, unspecified; Translations: [Hypothyroidism, unspecified] Onset: 4 Chronic Unclassified (1 source) Low back pain, unspecified; Translations: [Low back pain, unspecified] Onset: 5 Unclassified (1 source) Patient encounter status 01-27-2025 Past or Other Problems Problem Classification Problem Date Documented Da te Episodic/Chronic Adjustment disorders (4 sources) Adjustment disorder with depressed mood; Translations: [Adjustment disorder with depressed mood] Resolved: 03-19-2010 03-19-2010 Chronic Inflammatory diseases of female pelvic organs (8 sources) Vaginitis; Translations: [Acute vaginitis] Onset: 10-14-2015 10-14-2015 Episodic Other complications of (4 sources) High risk ; Translations: [Supervision of high risk , unspecified, unspecified trimester] Onset: 05-08-2006 Resolved: 03-19-2010 03-19-2010 Episodic Other complications of (4 sources) Supervision of other high risk pregnancies, unspecified trimester; Translations: [Supervision of other high-risk ] Onset: 12-09-2011 Resolved: 03-30-2012 07-19-2021 Episodic Other connective tissue disease (4 sources) Muscle spasm of cervical muscle of neck; Translations: [Other muscle spasm] Onset: 12-26-2013 07-19-2021 Episodic Other gastrointestinal disorders (3 sources) Constipation, unspecified; Translations: [Constipation, unspecified] Onset: 05-11-2024 09-08-2023 Episodic Other nervous system disorders (1 source) Unspecified disturbances of skin sensation; Translations: [Unspecified disturbances of skin sensation] Onset: 10-24-2023 Episodic Other and delivery including normal (4 sources) Normal in primigravida; Translations: [Encounter for supervision of normal first , unspecified trimester] Onset: 03-11-2006 Resolved: 03-19-2010 03-19-2010 Episodic Residual codes; unclassified (4 sources) Tobacco user; Translations: [Tobacco use] Onset: 12-26-2013 12-26-2013 Episodic Sexually transmitted infections (not HIV or hepatitis) (4 sources) Gonorrhea; Translations: [Gonococcal infection, unspecified] Onset: 04-08-2011 Resolved: 09-07-2011 09-07-2011 Episodic Unclassified (4 sources) heart deceleration; Translations: [ heart deceleration] Onset: 02-21-2012 Resolved: 03-30-2012 07-19-2021 Results Test Name Value Interpretation Reference Range Facility [facility] 01-29-2025 [facility] Telephone (OLIVIAGY) GENEVIEVE BELLO ([id number]) 1985 F Date Time Provider Department 01/29/25 LEXX ENAMORADO During your visit today, we recorded the following information about you: Charlene Ledesma RN 01/29/2025 9:53 AM Signed eLxx Enamorado APRN.KINJAL routed this conversation to [facility] 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 Pool (Selected Message) Lexx Enamorado APRN.KINJAL 01/29/25 7:09 AM Note Please notify patient: Deficient in Vitamin D. Recommend [id number] international unit(s) per day. Hemoglobin A1C borderline prediabetic. I recommend decreasing carb and sugar intake. Continue to plan for ultrasound Lexx Enamorado APRN.Charlene Villalta RN 01/29/2025 9:53 AM Signed Left message for patient to call office. LETI Peres Lindsey, RN 01/29/2025 9:59 AM Signed Patient notified of results, verbalizes understanding of instructions. Lynnette Hayes RN Allergies As of Date: 01/29/2025 Noted Allergy Reaction ANIMAL DANDER 10/02/2024 16 - Unknown ASA (SALICYLATES) 03/11/2006 Comments: CHILDHOOD REACTION GRASS POLLEN 09/19/2005 LOBSTER (CRUSTACEANS) 09/19/2005 Comments: mostly shrimp MILK 09/19/2005 OXYCODONE-ACETAMINOPHEN 04/02/2024 9 - Itching PEANUTS 09/19/2005 Date Reviewed: 01/27/2025 Reviewed by: Lexx Enamorado APRN.CNP - Fully Assessed Reason for Visit: Results [95] Prescriptions as of 01/29/2025 - OTC NUTRITIONAL SUPPLEMENT Multivitmain - ACETAMINOPHEN (TYLENOL ORAL) Take by mouth. - ibuprofen (MOTRIN) 200 mg tablet Take 200 mg by mouth every 6 hours as needed. Meds Comments as of 04/07/2011: Problem List As Of Date 01/29/2025 Noted Resolved Adjustment Disorder with Depressed Mood [F43.21] 03/19/2010 ABNORM HEART SOUNDS NEC [R01.2] Bipolar I Disorder, Most Recent Episode (or Cur* 12/26/2013 Supervision of Normal First [Z34.00] 03/11/2006 03/19/2010 Unspecified High-Risk [O09.90] 05/08/2006 03/19/2010 Lumbar Sprain and Strain [S33.5XXA] 10/01/2007 03/19/2010 Lumbago [M54.50] 10/01/2007 03/19/2010 Depression with anxiety [F41.8] 12/01/2009 Routine general medical examination at a health*01/21/2010 09/07/2011 Class: Chronic Routine gynecological examination [Z01.419] 01/21/2010 09/07/2011 Class: Chronic Gonorrhea [A54.9] 04/08/2011 09/07/2011 Hemorrhoids thrombosed 12/01/2011 Supervision of other high-risk (V23.89*201103/30/2012 Previous section [Z98.891] 01/27/2012 03/30/2012 heart deceleration [[id number]] 02/21/2012 03/30/2012 Neck muscle spasm [M62.838] 12/26/2013 Colitis [K52.9] 12/26/2013 Borderline personality disorder [F60.3] 12/26/2013 Anxiety [F41.9] 12/26/2013 12/26/2013 Post traumatic stress disorder [F43.10] 12/26/2013 Tobacco abuse disorder [Z72.0] 12/26/2013 Scoliosis [M41.9] 12/28/2013 Dysmenorrhea [N94.6] 10/14/2015 Abnormal uterine bleeding [N93.9] 10/14/2015 Recurrent vaginitis [N76.0] 10/14/2015 BV (bacterial vaginosis) [N76.0, B96.89] 10/14/2015 Encounter Status:Closed by LYNNETTE HAYES on 01/29/25 Normal [facility] 25(OH)D3 [facility] 2024 25-hydroxyvitamin D3 [Mass/Vol] 21.2 ng/mL Low 31.0-80.0 [facility] Comment on above: Order Comment: Speci men Type: SWAB Ordering Facility: [facility] Address: [facility] [place] [address] Result Comment: Clas sification of 25 [place] Vitamin D status: Deficiency/Insufficiency: < or = 30 ng/ml. Sufficiency/Optimal Levels: 31-80 ng/mL Toxicity: > 100 ng/mL. Test performed by chemiluminescent immunoassay. Performed By: #### [facility], [id number] #### [facility] CLIA [id number] [address] [place] [address] [place] 25-hydroxyvitamin D3 [Mass/V ol]on 01-27-2025 Interpretation and review of laboratory results Abnormal [facility] The reference range interval was based on an analysis of samples from healthy adults and may not pertain to children from 0-18 years old. [facility] C. trachomatis+N. gonorrhoea e DNA OMAIRA+probe Ql (Unsp spec)on 01-27-2025 C. trachomatis rRNA OMAIRA+probe Ql (Unsp spec) Not detected Normal Not detected [facility] Comment on above: Order Comment: Speci men Type: SWAB Ordering Facility: [facility] Address: [address] [place] [address] Performed By: #### T RVAMP, [id number] #### [facility] CLIA [id number] [address] [place] [address] [place] N. gonorrhoeae rRNA OMAIRA+probe Ql (Unsp spec) Not detected Normal Not detected [facility] Comment on above: Order Comment: Speci men Type: SWAB Ordering Facility: [facility] Address: [address] [place] [address] Performed By: #### T RVAMP, [id number] #### [facility] CLIA [id number] [address] [place] [address] [place] CBC panel Auto (Bld)on 01-27 Erythrocyte distribution width (RBC) [Ratio] 13.3 % 11.5 - 15.0 % [facility] Hematocrit (Bld) [Volume fraction] 38.7 % 36.0 - 46.0 % [facility] Hemoglobin (Bld) [Mass/Vol] 13.2 g/dL 11.5 - 15.5 g/dL [facility] Interpretation and review of laboratory results Normal [facility] MCH (RBC) [Entitic mass] 29.9 pg 26.0 - 34.0 pg [facility] MCHC (RBC) [Mass/Vol] 34.1 g/dL 30.5 - 36.0 g/dL [facility] MCV (RBC) [Entitic vol] 87.6 fL 80.0 - 100.0 fL [facility] Nucleated RBC (Bld) [#/Vol] NINF [facility] Platelet mean volume (Bld) [Entitic vol] 9.4 fL 9.0 - 12.7 fL [facility] Platelets (Bld) [#/Vol] 314 10*3/uL [facility] RBC (Bld) [#/Vol] 4.42 10*6/uL 3.90 - 5.2 0 m/uL [facility] WBC (Bld) [#/Vol] 6.69 10*3/uL [facility] Erythrocyte distribution width (RBC) [Ratio] 13.3 % Normal 11.5-15.0 [facility] Comment on above: Order Comment: Speci men Type: BLOOD SPECIMEN Ordering Facility: [facility] Address: [address] [place] [address] Performed By: #### 5 8410-2 #### [id number] [address] [place] [address] [place] Hematocrit (Bld) [Volume fraction] 38.7 % Normal 36.0-46.0 [facility] Comment on above: Order Comment: Yoko fernandez Type: BLOOD SPECIMEN Ordering Facility: [facility] Address: [address] [place] [address] Performed By: #### 5 8410-2 #### [facility] [id number] [address] [place] [address] [place] Hemoglobin (Bld) [Mass/Vol] 13.2 g/dL Normal 11.5-15.5 [facility] Comment on above: Order Comment: Kellyi jim Type: BLOOD SPECIMEN Ordering Facility: [facility] Address: [address] [place] [address] Performed By: #### 5 8410-2 #### [facility] [id number] [address] [place] [address] [place] MCH (RBC) [Entitic mass] 29.9 pg Normal 26.0-34.0 [facility] Comment on above: Order Comment: Speci men Type: BLOOD SPECIMEN Ordering Facility: [facility] Address: [address] [place] [address] Performed By: #### 5 8410-2 #### [facility] CLIA [id number] [address] [place] [address] [place] MCHC (RBC) [Mass/Vol] 34.1 g/dL Normal 30.5-36.0 [facility] Comment on above: Order Comment: Speci men Type: BLOOD SPECIMEN Ordering Facility: [facility] Address: [address] [place], [place] [address] Performed By: #### 5 8410-2 #### [facility] [id number] [address] [place] [address] [place] MCV (RBC) [Entitic vol] 87.6 fL Normal 80.0-100.0 [facility] Comment on above: Order Comment: Speci men Type: BLOOD SPECIMEN Ordering Facility: [facility] Address: [address] [place] [address] Performed By: #### 5 8410-2 #### [facility] CLIA [id number] [address] [place] [address] [place] Nucleated RBC (Bld) [#/Vol] 10*3/uL Normal <0.01 [facility] Comment on above: Order Comment: Speci men Type: BLOOD SPECIMEN Ordering Facility: [facility] Address: [address] [place] [address] Performed By: #### 5 8410-2 #### [facility] [id number] [address] [place] [address] [place] Platelet mean volume (Bld) [Entitic vol] 9.4 fL Normal 9.0-12.7 [facility] Comment on above: Order Comment: Speci men Type: BLOOD SPECIMEN Ordering Facility: [facility] Address: [address] [place] [address] Performed By: #### 5 8410-2 #### [facility] CLIA [id number] [address] [place] [address] [place] Platelets (Bld) [#/Vol] 314 10*3/uL Normal 150-400 [facility] Comment on above: Order Comment: Speci men Type: BLOOD SPECIMEN Ordering Facility: [facility] Address: [address] [place] [address] Performed By: #### 5 8410-2 #### [facility] CLIA [id number] [address] [place] [address] [place] RBC (Bld) [#/Vol] 4.42 10*6/uL Normal 3.90-5.20 [facility] Comment on above: Order Comment: Speci men Type: BLOOD SPECIMEN Ordering Facility: [facility] Address: [address] [place] [address] Performed By: #### 5 8410-2 #### [facility] CLIA [id number] [address] [place] [address] [place] WBC (Bld) [#/Vol] 6.69 10*3/uL Normal 3.70-11.00 [facility] Comment on above: Order Comment: Speci men Type: BLOOD SPECIMEN Ordering Facility: [facility] Address: [address] [place] [address] Performed By: #### 5 8410-2 #### [facility] CLIA [id number] [address] [place] [address] OF [facility] CNOVon 01-27-2025 CNOV Office Visit (OBGYWM ) GENEVIEVE BELLO ([id number]) 1985 F Date Time Provider Department 01/27/25 9:15 AM LEXX ENAMORADO During your visit today, we recorded the following information about you: Blood pressure Weight Height Last Period 120/60 102.5 kg 1.651 m 01/02/25 Lexx Enamorado APRN.WHEEL POLISHER 01/27/2025 9:47 AM Signed Field Support Engineer offered: Patient declines. Genevieve is a 39 year old who presents for an annual gynecologic exam with complaints, heavy and painful periods. Soaking a pad/tampon every half hour. Had ultrasound 3-4 years ago in [place] that showed polyps. History of trich - 12/31. Took Flagyl as directed. Would like DEZ today. 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 LMP: 10/05/2015, Having periods Age at Menarche: Age at First : Age at Menopause: 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 History Comments: Sexual Activity: Yes; Male; tubal Contraception: Surgical 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 Environmental allergies Other abnormal heart sounds Murmur PAST SURGICAL HISTORY Procedure Laterality Date DELIVERY ONLY 2006,2009,03/16/12 , low cervical CESSAREAN DELIVERY ONLY 03/16/12 Dr Mendoza COLONOSCOPY FLX DX W/COLLJ SPEC WHEN PFRMD Colonoscopy ESOPHAGOGASTRODUODENOSC OPY TRANSORAL DIAGNOSTIC EGD INCISION THROMBOSED HEMORRHOID EXTERNAL 12/01/11 LIG/TRNSXJ FLP TUBE ABDL/VAG APPR UNI/BI 2012 Tubal ligation FAMILY HISTORY Problem Relation Age of Onset other (depression [Other]) Father Hypertension Mother other (depression [Other]) Paternal Grandmother BIPOLAR Alcohol/Drug Maternal Grandmother Alcohol/Drug Mother SOCIAL HISTORY Social History Tobacco Use Smoking status: Every Day Current packs/day: 0.50 Average packs/day: 0.5 packs/day for 6.0 years (3.0 ttl pk-yrs) Types: Cigarettes Smokeless tobacco: Never Substance Use Topics Alcohol use: No Drug use: No REVIEW OF SYSTEMS Abdomen: No abdominal pain, nausea, vomiting, diarrhea, or constipation. No bloating, early satiety, indigestion, or increased flatulence. Bladder: No dysuria, gross hematuria, urinary frequency, urinary urgency, or incontinence. Breast: No breast lumps, nipple d/c, overlying skin changes, redness or skin retraction. Allergies and current medication updated:Yes SENSITIVE EXAM: The sensitive examination was discussed with the Patient or Patient's Authorized Behavioral Technician. As applicable, any other physician, advance practice provider, medical student, or other health professional student that will be observing or involved in the sensitive examination for educational or training purposes was discussed with the Patient or Authorized Behavioral Technician. The Patient or Authorized Behavioral Technician has agreed to proceed with the sensitive examination. (Sensitive examination includes inspection and/or palpation of the breasts, pelvis, prostate and anorectal regions). EXAM: BP 120/60 Ht 5' 5 (1.65m) Wt 226 lb (102.5kg) LMP 01/02/2025 BMI 37.61 kg/(m2). GENERAL: pleasant, female in no apparent distress HEENT: Normocephalic, atraumatic, mucus membranes moist, and no lesions NECK: Supple, full range of motion, no adenopathy, and thyroid normal DERMATOLOGY: Normal, without lesions, non-icteric, and non-hirsute BREAST: soft, non-tender, symmetric, no dominant mass, normal nipple-areolar complex, no lymphadenopathy, and no nipple discharge CHEST: Normal inspiratory effort ABDOMEN: soft, non-tender, and no masses PELVIC: external genitalia normal, normal Bartholin's glands, urethra, Blairs's glands, no vulvar lesions, no cervical lesions, good vaginal support, physiologic discharge present, normal appearing perineal body and perianal region BIMANUAL: uterus normal size, shape and consistency, no adnexal masses, and non-tender. Limited due to habitus. RECTOVAGINAL: deferred. NEURO: alert and oriented x3,exam grossly non-focal EXTREMITIES: normal ASSESSMENT/PLAN: 1) Health maintenance: Pap done with HPV. Mammogram ordered. Smoking cessation: Smoking cessation encouraged and resources provided. 2) Contraception: tubal 3) STD screening: Accepts full STD screeening including HIV, Syphilis and Hepatitis. 4) Follow up one (more content not included)... Normal [facility] HBV surface Ag Ql (S)on Interpretation and review of laboratory results Normal [facility] HBV surface Ag Ser Qlon HBV surface Ag Ql (S) Negative Normal Negative [facility] Comment on above: Order Comment: Speci men Type: SWAB Ordering Facility: [facility] Address: [address] [place] [address] Performed By: #### T RVAMP, 11749-4 #### [facility] CLIA [id number] [address] [place] [address] [place] HCV Ab Ql (S)on 01-27-2025 Interpretation and review of laboratory results Normal [facility] HCV Ab Ser Qlon 01-27-2025 HCV Ab Ql (S) Negative Normal Negative [facility] Comment on above: Order Comment: Speci men Type: BLOOD SPECIMEN Ordering Facility: [facility] Address: [address] [place] [address] Result Comment: The result suggests no evidence of infection with Hepatitis C virus. Should recent infection be suspected, repeat testing may be considered 4-6 weeks after this draw. Performed By: #### 1 6128-1 #### [facility] CLIA [id number] [address] [place] [address] [place] HEPATITIS B SURFACE ANTIGENo n 01-27-2025 HBV surface Ag Ql (S) Negative Negative [facility] HEPATITIS C ANTIBODY IA WITH CONFIRMATIONon 01-27-2025 HCV Ab Ql (S) Negative Negative [facility] Comment on above: The result suggests no evidence of infection with Hepatitis C virus. Should recent infection be suspected, repeat testing may be considered 4-6 weeks after this draw. HIV 1+2 Ab IA Qlon 5 HIV 1 and 2 Ab IA.rapid Nom (S/P/Bld) [facility] Comment on above: Test not indicated. HIV 1+2 Ab+HIV1 p24 Ag IA Ql Non-Reactive Nonreactive [facility] HIV immunoassay testing algorithm interpretation (S/P/Bld) [Interp] [facility] Comment on above: No evidence of HIV-1 or HIV-2 infection. Should recent infection be suspected, repeat testing may be considered 2-3 weeks after this draw. [place] Rev. Code 3701.243(E): This information has been disclosed to you from confidential records protected from disclosure by state law. You shall make no further disclosure of this information without the specific, written, and informed release of the individual to whom it pertains or as otherwise permitted by state law. A general authorization for the release of medical or other information is not sufficient for the purpose of the release of HIV test results or diagnoses. [facility] HIV 1 and 2 Ab IA.rapid Nom (S/P/Bld) Normal [facility] Comment on above: Order Comment: Speci men Type: SWAB Ordering Facility: [facility] Address: [address] [place] [address] Result Comment: Test not indicated. Performed By: #### T RVAMP, 99322-7 #### [facility] CLIA [id number] [address] [place] [address] [place] HIV 1+2 Ab+HIV1 p24 Ag IA Ql Non-Reactive Normal Nonreactive [facility] Comment on above: Order Comment: Speci men Type: SWAB Ordering Facility: [facility] Address: [address] [place] [address] Performed By: #### T RVAMP, 41638-9 #### [facility] CLIA [id number] [address] [place] [address] [place] HIV immunoassay testing algorithm interpretation (S/P/Bld) [Interp] Normal [facility] Comment on above: Order Comment: Speci men Type: SWAB Ordering Facility: [facility] Address: [address] [place] [address] Result Comment: No e vidence of HIV-1 or HIV-2 infection. Should recent infection be suspected, repeat testing may be considered 2-3 weeks after this draw. [place] Rev. Code 3701.243(E): This information has been disclosed to you from confidential records protected from disclosure by state law. You shall make no further disclosure of this information without the specific, written, and informed release of the individual to whom it pertains or as otherwise permitted by state law. A general authorization for the release of medical or other information is not sufficient for the purpose of the release of HIV test results or diagnoses. Performed By: #### [facility], 95341-1 #### [facility] CLIA [id number] [address] [place] [address] [place] HbA1c (Bld)on 01-27-2025 Average glucose Estimated from glycated hemoglobin (Bld) [Mass/Vol] 114 mg/dL Normal [facility] Comment on above: Order Comment: Speci men Type: BLOOD SPECIMEN Ordering Facility: [facility] Address: [address] [place] [address] Result Comment: eAG: (Estimated average glucose) is a calculated value from HgbA1c and is u.s. representative of the average blood glucose level in the last 2-3 month period. Performed By: #### 5 5454-3 #### [facility] CLIA [id number] [address] [place] [address] [place] HbA1c (Bld) [Mass fraction] 5.6 % Normal 4.3-5.6 [facility] Comment on above: Order Comment: Speci men Type: BLOOD SPECIMEN Ordering Facility: [facility] Address: [address] [place] [address] Result Comment: Amer [place] Diabetes Association guidelines indicate that patients with HgbA1c in the range 5.7-6.4% are at increased risk for development of diabetes, and intervention by lifestyle modification may be beneficial. HgbA1c greater or equal to 6.5% is considered diagnostic of diabetes. Performed By: #### 5 5454-3 #### [facility] CLIA [id number] [address] [place] [address] [place] No Panel Informationon 01-27 Interpretation and review of laboratory results Normal [facility] Reagin and Treponema pallidu m IgG and IgM [Interp]on 01-27-2025 T. pallidum IgG+IgM IA Ql (S) Non-Reactive Nonreactive [facility] T. pallidum IgG+IgM IA Ql (S) Non-Reactive Normal Nonreactive [facility] Comment on above: Order Comment: Speci men Type: SWAB Ordering Facility: [facility] Address: [address] [place] [address] Performed By: #### T RVAMP, 60606-6 #### [facility] CLIA [id number] [address] [place] [address] [place] Reagin+T pallidum IgG+IgM Se rPl-Impon 01-27-2025 Reagin and Treponema pallidum IgG and IgM [Interp] Cannot exclude recent Treponemal infection if specimen collected within 7-10 days after appearance of suspect lesions or 2-3 weeks after an exposure. Clinical correlation is required. Normal [facility] Comment on above: Order Comment: Speci men Type: SWAB Ordering Facility: [facility] Address: [address] [place] [address] Performed By: #### T RVAMP, 03885-7 #### [facility] CLIA [id number] [address] [place] [address] [place] SYPHILIS TREPONEMAL W/REFLEX on 01-27-2025 Reagin and Treponema pallidum IgG and IgM [Interp] Cannot exclude recent Treponemal infection if specimen collected within 7-10 days after appearance of suspect lesions or 2-3 weeks after an exposure. Clinical correlation is required. [facility] T4 FREE/FREE THYROXINEon Free T4 [Mass/Vol] 1.2 ng/dL 0.9 - 1.7 ng/dL [facility] T4 Free SerPl-mCncon 07-07-2 025 Free T4 [Mass/Vol] 1.2 ng/dL Normal 0.9-1.7 [facility] Comment on above: Order Comment: Speci men Type: BLOOD SPECIMEN Ordering Facility: [facility] Address: [address] [place] [address] Performed By: #### 3 016-3, 3024-7 #### [facility] CLIA [id number] [address] [place] [address] [place] THYROID STIMULATING HORMONEo n 01-27-2025 TSH Qn 1.47 m[IU]/L [facility] Comment on above: If the patient is pr egnant, TSH reference range varies by gestational period: First Trimester (weeks 9-12): 0.180-2.990 mIU/L Second Trimester: 0.110-3.980 mIU/L Third Trimester: 0.480-4.710 mIU/L Bala Ribeiro et al. A Practical Approach for the Verifications and Determination of Site- and Trimester-Specific Reference Intervals for Thyroid Function tests in . Thyroid, 2019:29:3:412-420. Mir E, et al. 2017 Guidelines of the [place] Thyroid Association for the Diagnosis and Management of Thyroid Disease during and the . Thyroid, 2017:27:3:315-389. TRICHOMONAS VAGINALIS NAATon 01-27-2025 T. vaginalis DNA OMAIRA+probe Ql (Unsp spec) Not detected Normal Not detected [facility] Comment on above: Order Comment: Speci men Type: SWAB Ordering Facility: [facility] Address: [address] [place] [address] Performed By: #### T RVAMP, 66479-2 #### [facility] CLIA [id number] [address] [place] [address] [place] TSH SerPl-aCncon 01-27-2025 TSH Qn 1.470 m[IU]/L Normal 0.270-4.200 [facility] Comment on above: Order Comment: Speci men Type: BLOOD SPECIMEN Ordering Facility: [facility] Address: [address] [place] [address] Result Comment: If t he patient is , TSH reference range varies by gestational period: First Trimester (weeks 9-12): 0.180-2.990 mIU/L Second Trimester: 0.110-3.980 mIU/L Third Trimester: 0.480-4.710 mIU/L Bala Ribeiro et al. A Practical Approach for the Verifications and Determination of Site- and Trimester-Specific Reference Intervals for Thyroid Function tests in . Thyroid, 2019:29:3:412-420. Mir Dillard, et al. 2017 Guidelines of the [place] Thyroid Association for the Diagnosis and Management of Thyroid Disease during and the . Thyroid, 2017:27:3:315-389. Performed By: #### 3 016-3, 3024-7 #### [facility] CLIA [id number] [address] [place] [address] [place] VITAMIN D 25 HYDROXYon 01-27 25-hydroxyvitamin D3 [Mass/Vol] 21.2 ng/mL Low 31.0 - 80.0 ng/mL [facility] Comment on above: Classification of 25 [place] Vitamin D status: Deficiency/Insufficiency: < or = 30 ng/ml. Sufficiency/Optimal Levels: 31-80 ng/mL Toxicity: > 100 ng/mL. Test performed by chemiluminescent immunoassay. CNOVon 12-23-2024 CNOV Office Visit (UCTR ) GENEVIEVE BELLO ([id number]) 1985 F Date Time Provider Department 12/23/24 4:00 PM CJ BRIGHT [facility] During your visit today, we recorded the following information about you: Temperature Pulse Respiration Blood pressure 99.1 degrees 91/minute 18/minute 118/78 Weight 101.7 kg Cj Bright APRN.WHEEL POLISHER 12/23/2024 4:32 PM Signed [facility] Subjective Genevieve Bello is a 39 year old female. Patient presents with: Vomiting: Vomiting and diarrhea x 1 day Patient came in with complaints of nausea and vomiting. Patient says it started this morning. Patient denies any fever chills abdominal pain. Patient denies any other symptoms. Patient has tried Pepto-Bismol with no relief. The history is provided by the patient. No urban anthropologist was used. Vomiting Review of Systems HENT: Negative. Gastrointestinal: Positive for nausea and vomiting. Objective BP 118/78 Pulse 91 Temp 37.3 ?C (99.1 ?F) (Tympanic) Resp 18 Wt 101.7 kg (224 lb 3.3 oz) LMP 10/05/2015 SpO2 97% BMI 37.35 kg/m? Physical Exam Constitutional: Appearance: Normal appearance. Cardiovascular: Rate and Rhythm: Normal rate and regular rhythm. Heart sounds: Normal heart sounds. Pulmonary: Effort: Pulmonary effort is normal. Breath sounds: Normal breath sounds. Abdominal: Palpations: Abdomen is soft. Tenderness: There is no abdominal tenderness. There is no guarding. Neurological: Mental Status: She is alert. 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 Environmental allergies Other abnormal heart sounds Murmur PAST SURGICAL HISTORY Procedure Laterality Date DELIVERY ONLY 2006,2009,03/16/12 , low cervical CESSAREAN DELIVERY ONLY 03/16/12 Dr Mendoza COLONOSCOPY FLX DX W/COLLJ SPEC WHEN PFRMD Colonoscopy ESOPHAGOGASTRODUODENOSC OPY TRANSORAL DIAGNOSTIC EGD INCISION THROMBOSED HEMORRHOID EXTERNAL 12/01/11 LIG/TRNSXJ FLP TUBE ABDL/VAG APPR UNI/BI 2011 Tubal ligation ALLERGIES Animal Dander, Asa [Salicylates], Grass Pollen, Lobster (Crustaceans), Milk, Oxycodone-Acetaminophen , and Peanuts MEDICATIONS ondansetron orally disintegrating (ZOFRAN ODT) 4 mg disintegrating tablet Take 1 tablet by mouth every 8 hours as needed for up to 7 days. metaxalone (SKELAXIN) 800 mg tablet take 1 tablet by mouth three times a day for 7 days HYDROcodone-acetaminoph en (NORCO) 5-325 mg per tablet Take 2 tablets by mouth every 6 hours as needed. cyclobenzaprine (FLEXERIL) 10 mg tablet Take 10 mg by mouth three times daily as needed. (Patient not taking: Reported on 10/02/2024) DULoxetine (CYMBALTA) 30 mg capsule Take 1 capsule by mouth once daily. (Patient not taking: Reported on 10/02/2024) Desogestrel-Ethinyl Estradiol (APRI) 0.15-0.03 mg per tablet Take 1 tablet by mouth once daily. (Patient not taking: Reported on 10/02/2024) metroNIDAZOLE (METROGEL VAGINAL) 0.75 % Vaginal Gel Twice weekly vaginally x 6 months after initial course of flagyl (Patient not taking: Reported on 10/02/2024) ACETAMINOPHEN (TYLENOL ORAL) Take by mouth. ibuprofen (MOTRIN) 200 mg tablet Take 200 mg by mouth every 6 hours as needed. FAMILY HISTORY Problem Relation Age of Onset other (depression [Other]) Father Hypertension Mother other (depression [Other]) Paternal Grandmother BIPOLAR Alcohol/Drug Maternal Grandmother Alcohol/Drug Mother Social History Tobacco Use Smoking status: Every Day Current packs/day: 0.50 Average packs/day: 0.5 packs/day for 6.0 years (3.0 ttl pk-yrs) Types: Cigarettes Smokeless tobacco: Never Substance Use Topics Alcohol use: No Drug use: No {ASSESSMENT/PLAN: 1. Nausea - ICD9: 787.02, ICD10: R11.0 (primary diagnosis) 2. Nausea and vomiting, unspecified vomiting type - ICD9: 787.01, ICD10: R11.2 - ONDANSETRON 4 MG DISINTEGRATING TABLET Educated about proper use of medication and supportive therapies. Patient will follow-up if signs and symptoms seem to getting worse not better. Patient agreeable to care plan. Cj Bright APRN.WHEEL POLISHER MDM Procedures Allergies As of Date: 12/23/2024 Noted Allergy Reaction ANIMAL DANDER 10/02/2024 16 - Unknown ASA (SALICYLATES) 03/11/2006 Comments: CHILDHOOD REACTION GRASS POLLEN 09/19/2005 LOBSTER (CRUSTACEANS) 09/19/2005 Comments: mostly shrimp MILK 09/19/2005 OXYCODONE-ACETAMINOPHEN 04/02/2024 9 - Itching PEANUTS 09/19/2005 Date Reviewed: 12/23/2024 Reviewed by: Bronwyn Rojas LPN - Fully Assessed Reason for Visit: Vomiting [120] Cmt: Vomiting and diarrhea x 1 day Primary Visit Diagnosis:Nausea [R11.0] Other Visit Diagnosis:Nausea and vomiting, unspecified vomiting type [R11.2] Order(s):ondansetron orally disintegrating (ZOFRAN ODT) 4 mg disintegra (more content not included)... Normal [facility] CNOVon 10-02-2024 CNOV Office Visit (UCWSTR ) GENEVIEVE BELLO ([id number]) 1985 F Date Time Provider Department 10/02/24 6:30 PM CJ BRIGHT [facility] During your visit today, we recorded the following information about you: Temperature Pulse Respiration Blood pressure 98.7 degrees 90/minute 18/minute 118/82 Weight 101.4 kg Cj Bright APRN.WHEEL POLISHER 10/02/2024 6:55 PM Signed [facility] Subjective Genevieve Bello is a 39 year old female. Patient presents with: Cough: Cough, chest congestion, ST and bodyachees x 1 week Patient came in with complaints of cough head and chest congestion. Patient says she is a smoker. Patient denies any shortness of breath. Patient says it does hurt to swallow. Patient denies any other symptoms. The history is provided by the patient. No urban anthropologist was used. Cough Review of Systems Constitutional: Negative. HENT: Negative. Respiratory: Positive for cough. Objective BP 118/82 Pulse 90 Temp 37.1 ?C (98.7 ?F) (Tympanic) Resp 18 Wt 101.4 kg (223 lb 8.7 oz) LMP 10/05/2015 SpO2 98% BMI 37.24 kg/m? Physical Exam Constitutional: Appearance: Normal appearance. HENT: Right Ear: Tympanic membrane, ear canal and external ear normal. Left Ear: Tympanic membrane, ear canal and external ear normal. Mouth/Throat: Mouth: Mucous membranes are moist. Pharynx: Posterior oropharyngeal erythema present. Eyes: Pupils: Pupils are equal, round, and reactive to light. Cardiovascular: Rate and Rhythm: Normal rate and regular rhythm. Heart sounds: Normal heart sounds. Pulmonary: Effort: Pulmonary effort is normal. Breath sounds: Wheezing present. Neurological: Mental Status: She is alert. 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 Environmental allergies Other abnormal heart sounds Murmur PAST SURGICAL HISTORY Procedure Laterality Date DELIVERY ONLY 2006,2009,03/16/12 , low cervical CESSAREAN DELIVERY ONLY 03/16/12 Dr Mendoza COLONOSCOPY FLX DX W/COLLJ SPEC WHEN PFRMD Colonoscopy ESOPHAGOGASTRODUODENOSC OPY TRANSORAL DIAGNOSTIC EGD INCISION THROMBOSED HEMORRHOID EXTERNAL 12/01/11 LIG/TRNSXJ FLP TUBE ABDL/VAG APPR /BI 2011 Tubal ligation ALLERGIES Asa [Salicylates], Environmental [Other], Grass Pollen, Hair And Skin [Homeopathic Products], Lobster (Crustaceans), Milk, Oxycodone-Acetaminophen , and Peanuts MEDICATIONS metaxalone (SKELAXIN) 800 mg tablet take 1 tablet by mouth three times a day for 7 days HYDROcodone-acetaminoph en (NORCO) 5-325 mg per tablet Take 2 tablets by mouth every 6 hours as needed. (Patient not taking: Reported on 10/02/2024) cyclobenzaprine (FLEXERIL) 10 mg tablet Take 10 mg by mouth three times daily as needed. (Patient not taking: Reported on 10/02/2024) DULoxetine (CYMBALTA) 30 mg capsule Take 1 capsule by mouth once daily. (Patient not taking: Reported on 10/02/2024) Desogestrel-Ethinyl Estradiol (APRI) 0.15-0.03 mg per tablet Take 1 tablet by mouth once daily. (Patient not taking: Reported on 10/02/2024) metroNIDAZOLE (METROGEL VAGINAL) 0.75 % Vaginal Gel Twice weekly vaginally x 6 months after initial course of flagyl (Patient not taking: Reported on 10/02/2024) ACETAMINOPHEN (TYLENOL ORAL) Take by mouth. ibuprofen (MOTRIN) 200 mg tablet Take 200 mg by mouth every 6 hours as needed. FAMILY HISTORY Problem Relation Age of Onset other (depression [Other]) Father Hypertension Mother other (depression [Other]) Paternal Grandmother BIPOLAR Alcohol/Drug Maternal Grandmother Alcohol/Drug Mother Social History Tobacco Use Smoking status: Every Day Current packs/day: 0.50 Average packs/day: 0.5 packs/day for 6.0 years (3.0 ttl pk-yrs) Types: Cigarettes Smokeless tobacco: Never Substance Use Topics Alcohol use: No Drug use: No 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 Environmental allergies Other abnormal heart sounds Murmur PAST SURGICAL HISTORY Procedure Laterality Date DELIVERY ONLY 2006,2009,03/16/12 , low cervical CESSAREAN DELIVERY ONLY 03/16/12 Dr Mendoza COLONOSCOPY FLX DX W/COLLJ SPEC WHEN PFRMD Colonoscopy ESOPHAGOGASTRODUODENOSC OPY TRANSORAL DIAGNOSTIC EGD INCISION THROMBOSED HEMORRHOID EXTERNAL 12/01/11 LIG/TRNSXJ FLP TUBE ABDL/VAG APPR UNI/BI 2011 Tubal ligation ALLERGIES Animal Dander, Asa [Salicylates], Grass Pollen, Lobster (Crustaceans), Milk, Oxycodone-Acetaminophen , and Peanuts MEDICATIONS metaxalone (SKELAXIN) 800 mg tablet take 1 tablet by mouth three times a day for 7 days doxycycline (VIBRA-TABS) 100 mg tablet Take 1 tablet by mouth two times a day for 7 days. HYDR (more content not included)... Normal [facility] STREP A MOLECULAR (POC)on Procedural Control Valid [facility] Strep A (POCT) Negative Negative [facility] Emergency Department Summary on 09-26-2024 Emergency Department Summary [facility] Medical Records Department [address] [place] [address] Emergency Department Summary 09/26/24 MR#: [id number] Acct: [id number] Name: GENEVIEVE BELLO Rep #: [id number] : 1985 39 From: Jett Brooks MD PCP: Dr. Silva Jaime MD Status:DEP ER Location: ED HPI History of Present Illness Chief Complaint: Back Informant: patient Onset/Context/Timing Onset: Days Context: Gradual Onset Injury: lifting, twisting, bending and fall Timing: Continuous Quality: Sharp and Aching Location: Thoracic and Lumbar Current Severity: Mild Maximum Severity: Moderate Worsened by: improves with Movement Relieved by: Nothing Associated Symptoms Associated Symptoms: Negative for Numbness, Tingling, Radiation to Right Leg, Radiation to Left Leg, Fever, Abdominal Pain, Dysuria, Unable to Ambulate, Unable to Transfer, Urinary Retention, Urinary Incontinence, Constipation or Fecal Incontinence Narrative Narrative: 39-year-old female with acute on chronic low back pain. States has been doing lifting and carrying stuff recently moved. She is also had some falls. No prior back history. She has had prior back x-ray showing scoliosis but no compression fractures. She denies any numbness or tingling denies any upper or lower extremity weakness. No fever. No bowel or bladder incontinence or retention. Prior similar symptoms: Yes Recent Illness/Hospitalization : No PFSH [facility] Medical History Anemia Easy bruising Weight gain Abdominal pain Blood in stool Anxiety Depression Heart murmur Colitis Constipation Hemorrhoids Back pain Marijuana smoker Marijuana abuse Home Medications ???Medication ???Instructions ???Recorded ???Last Taken ???Type omeprazole 20 mg capsule,delayed 20 mg PO BID #60 caps 05/24/24 Unk nown Rx release metaxalone 800 mg tablet 800 mg PO TID 7 days #21 tabs 01/15 Unknown Rx Allergy/AdvReac Type Severity Reaction Status Date / Time aspirin Allergy Severe UNKNOWN Verified 09/26/24 08:55 Penicillins AdvReac Mild Itching Verified 09/26/24 08:55 Family History Father Hypertension CAD (coronary artery disease) Uncle Cancer skin Aunt Cancer brain Surgical History S/P section Social History Smoking Status: Current every day smoker tobacco type: cigarettes alcohol intake: never substance use type: marijuana ROS ROS ED ROS Narrative No recent illness. Constitutional Constitutional ED: Denies chills or fever(s) Eyes Eyes: Denies blurry vision ENT ENT ED: Denies ear pain Cardiovascular Cardiovascular: Denies chest pain Gastrointestinal Gastrointestinal: Denies abdominal pain Genitourinary Genitourinary ED: Denies dysuria Musculoskeletal Musculoskeletal: Denies arthralgias Integumentary Denies abscess Neurologic Neurologic: Denies headache(s) Psychiatric Psychiatric: Denies anxiety Endocrine Endocrinology: Denies cold intolerance Hematologic/Lymphatic Hematologic/Lymphatic: Denies easy bleeding, easy bruising or lymphadenopathy Allergic/Immunologic Allergic/Immunologic ED: Denies mouth swelling EXAM Physical Exam Narrative Exam Narrative: Well-appearing 39-year-old female. Vital signs stable afebrile. H EENT exam pupils round reactive light. Extra motions are intact. No signs of trauma to her face or scalp. Neck nontender. Trachea midline. Lungs clear to auscultation bilaterally. Heart regular rhythm rate about 90 no murmur. Chest wall ribs nontender. Abdomen soft nontender. Pelvic girdle intact. Hips are nontender. No shortening or rotation. She has normal educational consultant strength of both hands and range of motion of both upper and lower extremities. Normal dorsi plantarflexion. Nontender no deformity. Back she has some reproducible para thoracic and lumbar soft tissue tenderness. There is no ecchymosis or bruising. There is no significant spine tenderness. Neurologically she is awake and alert. He has normal motor strength and sensation. No cauda equina. No weakness. Const Vital Signs: 09/26/24 08:55 Temperature 97 F L Temperature Source Temporal Pulse Rate 92 Respiratory Rate 16 Blood Pressure 160/98 H Blood Pressure Mean 118 Pulse Ox 100 Oxygen Delivery Method Room Air Positive well nourished and well developed; Negative for cachectic, contractures or unkempt General Appearance ED: well developed and NAD; Negative for unkempt, cachectic, contractures or pallor Nutritional Appearance: Negative for cachectic HEENT Reports moist mucous membranes Eyes PERRL and EOMs intact bilaterally Neck no lymp (more content not included)... Normal [facility] Gastroenterology Visit Repor ton 05-24-2024 Gastroenterology Visit Report [facility] Gastroenterology [address] [place] [address] OFFICE VISIT Date of Service: 05/24/24 MR#: [id number] Acct: [id number] Name: GENEVIEVE BELLO Rep #: [id number] : 1985 Provider: COY Uriarte Age/Sex: 39/F Location[facility] Status: Signed Intake Vital Signs 05/20/24 10:11 Height 5 ft 5 in Intake Visit Reasons: Follow up Chief Complaint: constipation, abdominal pain f/u Is patient in pain?: Yes Allergies aspirin Allergy (Severe, Verified 05/20/24 09:54) UNKNOWN Penicillins Adverse Reaction (Mild, Verified 05/20/24 09:54) Itching Have you fallen in the past year?: No Nurse's Note: OV 05.24.24 Pt here for f/u. Pt states she is still experiencing abdominal pain, constipation, and pain in hands and feet. Pt isnt taking any medications at this time. Had and EGD and colonoscopy 05.20.24. [facility] Medical History Anemia Easy bruising Weight gain Abdominal pain Blood in stool Anxiety Depression Heart murmur Colitis Constipation Hemorrhoids Back pain Marijuana smoker Marijuana abuse Surgical History S/P section Family History Father Hypertension CAD (coronary artery disease) Uncle Cancer skin Aunt Cancer brain Social History Smoking Status: Current every day smoker tobacco type: cigarettes alcohol intake: never substance use type: marijuana HPI HPI Chief Complaint: constipation, abdominal pain f/u Details: GENEVIEVE BELLO, is a 39 F who presents to the office today for f/u. BGI established 04.16.24 w/ constipation, n/v, abdominal pain and heartburn. Remote hx of unspecified colitis in her teens. Treated w/ asocal. Biochemical work up; IBS SGI, Autoimmune and food allergies w/o abnormality Colonoscopy 05.20.24; - Hemorrhoids found on perianal exam. - Congested mucosa in the recto-sigmoid colon, in the sigmoid colon, in the transverse colon and in the ascending colon. Biopsied. - The examined portion of the ileum was normal. Biopsied. Biopsy with no pathologic changes EGD 05.20.24; - Normal esophagus. - Gastritis. Biopsied. - Non-bleeding gastric ulcer with no stigmata of bleeding. Biopsied. - No gross lesions in the first portion of the duodenum. Biopsied. Biopsy showing H. pylori + OV 11.1.24 Pt continues to have abdominal pain. Her constipation was resolved with Colace. She is here today to discuss the results of her scopes and blood work ROS Const Constitutional: Positive for fatigue; No fever(s) or weight change ENT ENT: No difficulty swallowing Gastro GI: Positive for abdominal pain, bloating, constipation, heartburn, feeling full early, excessive flatus, Blood in stool and nausea/dyspepsia; No belching, change in bowel habits, change in stool character, coffee ground emesis, cramping, diarrhea, difficulty swallowing, incontinent of stools, Vomiting blood/hematemesis, loose stools, Black,tarry stools, pain with swallowing, vomiting or other Musc Musculoskeletal: Positive for joint pain, back pain, muscle cramps, muscle weakness and stiffness Skin Skin: Positive for skin pain; No yellowing of the eye or itchy eyes Psych Psychiatric: Positive for anxiety and No depression Endo Endocrine: Positive for fatigue; No weight change Aller/Imm Allergy/Immunologic: No itchy eyes Anthony/Lymp Hematologic/Lymphatic: Positive for easy bruising; No easy bleeding Exam Const General: cooperative and comfortable Nutritional Appearance: average body habitus and well nourished [facility] Head: normal to inspection Ears: hearing grossly normal bilaterally Nose: external nose normal Face and sinus: normal facial exam Mouth: oral mucosae normal Throat: posterior oropharynx normal Eyes General: appearance normal, both eyes and all related structures Neck Neck: normal visual inspection Chest Chest palpation inspection: normal inspection of the chest and normal palpation of entire chest wall Resp Effort Inspection: normal respiratory effort Auscultation: Bilateral: Clear to Auscultation Cardio Palpation: normal PMI Rate: regular rate Rhythm: regular rhythm GI Inspection: normal to inspection Auscultation: normal bowel sounds Percussion: normal to percussion Palpation: no hepatosplenomegaly Skin General: no rashes or lesions noted Neuro General: patient alert Extrem General: normal to inspection Psych Affect: normal affect Assessment and Plan Assessment and Plan (1) GERD (gastroesophageal reflux disease): Status: Acute Plan: This is a 39 yo female here today for f/u after upper and lower en (more content not included)... Normal [facility] Colonoscopy Reporton 05-20-2 024 Colonoscopy Report [facility] Medical Records Department [address] [place] [address] Colonoscopy Report MR#: [id number] Acct: [id number] Name: GENEVIEVE BELLO Rep #: [id number] : 1985 39 From: Po Frost DO PCP: Dr. Silva Jaime MD [place] Patient Name: Genevieve Bello Procedure Date: 05/20/2024 11:25 AM Date of : 1985 Age: 39 Procedure: Colonoscopy Indications: Chronic diarrhea Providers: Po Frost DO Referring MD: Silva Jaime Md Medicines: Monitored Anesthesia Care Patient Profile: This is a 39 year old female. Refer to note in patient chart for documentation of history and physical. Patient has symptoms of acute epigastric abdominal pain, chronic epigastric abdominal pain, chronic dyspepsia and chronic nausea. Last Colonoscopy: none. The patient's first colonoscopy is today. Complications: No immediate complications. Procedure: Pre-Anesthesia Assessment: - Prior to the procedure, a History and Physical was performed, and patient medications and allergies were reviewed. The patient is competent. The risks and benefits of the procedure and the sedation options and risks were discussed with the patient. All questions were answered and informed consent was obtained. Patient identification and proposed procedure were verified by the physician in the pre-procedure area. Mental Status Examination: alert and oriented. Airway Examination: normal oropharyngeal airway and neck mobility. Respiratory Examination: clear to auscultation. CV Examination: normal. Prophylactic Antibiotics: The patient does not require prophylactic antibiotics. Prior Anticoagulants: The patient has taken no anticoagulant or antiplatelet agents except for NSAID medication. ASA Grade Assessment: II - A patient with mild systemic disease. After reviewing the risks and benefits, the patient was deemed in satisfactory condition to undergo the procedure. The anesthesia plan was to use monitored anesthesia care (MAC). Immediately prior to administration of medications, the patient was re-assessed for adequacy to receive sedatives. The heart rate, respiratory rate, oxygen saturations, blood pressure, adequacy of pulmonary ventilation, and response to care were monitored throughout the procedure. The physical status of the patient was re-assessed after the procedure. After I obtained informed consent, the scope was passed under direct vision. Throughout the procedure, the patient's blood pressure, pulse, and oxygen saturations were monitored continuously. The Colonoscope was introduced through the anus and advanced to the terminal ileum. The colonoscopy was performed without difficulty. The patient tolerated the procedure well. The quality of the bowel preparation was adequate. The terminal ileum, ileocecal valve, appendiceal orifice, and rectum were photographed. Scope In: 11:28:06 AM Scope Out: 11:38:53 AM Total Procedure Duration Time 0 hours 10 minutes 47 seconds Findings: Hemorrhoids were found on perianal exam. An area of mildly congested mucosa was found in the recto-sigmoid colon, in the sigmoid colon, in the transverse colon and in the ascending colon. Biopsies were taken with a cold forceps for histology. Verification of patient identification for the specimen was done. Estimated blood loss was minimal. The terminal ileum appeared normal. Biopsies were taken with a cold forceps for histology. Verification of patient identification for the specimen was done. Estimated blood loss was minimal. Impression: - Hemorrhoids found on perianal exam. - Congested mucosa in the recto-sigmoid colon, in the sigmoid colon, in the transverse colon and in the ascending colon. Biopsied. - The examined portion of the ileum was normal. Biopsied. Recommendation: - Discharge patient to home. - Resume previous diet. - Continue present medications. - Await pathology results. - Repeat colonoscopy in 10 years for screening purposes. Procedure Code(s): --- Professional --- 10051, Colonoscopy, flexible; with biopsy, single or multiple CPT copyright 2021 [employer]. All rights reserved. The codes documented in this report are preliminary and upon photographic equipment technician review may be revised to meet current compliance requirements. Po Frost DO 05/20/2024 11:46:11 AM This report has been signed electronically. Number of Addenda: 0 Note Initiated On: 05/20/2024 11:25 AM 05/20/24 1146 Date Po [place] Signature: Date (if indicated) CC: Dr. Silva Jaime MD; Po Frost DO Date Dictated: 05/20/24 1125 Date Transcribed: Property Analyst: RF Signed Normal [facility] EGD Reporton 05-20-2024 EGD Report [facility] Medical Records Department [address] [place] [address] EGD Report MR#: [id number] Acct: [id number] Name: GENEVIEVE BELLO Rep #: [id number] : 1985 39 From: Po Frost DO PCP: Dr. Silva Jaime MD [place]:[facility] Patient Name: Genevieve Bello Procedure Date: 05/20/2024 11:08 AM Date of : 1985 Age: 39 Procedure: Upper GI endoscopy Indications: Epigastric abdominal pain, Functional Dyspepsia Providers: Po Frost DO Referring MD: Silva Jaime Md Medicines: Monitored Anesthesia Care Patient Profile: This is a 39 year old female. Refer to note in patient chart for documentation of history and physical. Patient has symptoms of acute epigastric abdominal pain, chronic epigastric abdominal pain, chronic dyspepsia and chronic nausea. Complications: No immediate complications. Procedure: Pre-Anesthesia Assessment: - Prior to the procedure, a History and Physical was performed, and patient medications and allergies were reviewed. The patient is competent. The risks and benefits of the procedure and the sedation options and risks were discussed with the patient. All questions were answered and informed consent was obtained. Patient identification and proposed procedure were verified by the physician in the pre-procedure area. Mental Status Examination: alert and oriented. Airway Examination: normal oropharyngeal airway and neck mobility. Respiratory Examination: clear to auscultation. CV Examination: normal. Prophylactic Antibiotics: The patient does not require prophylactic antibiotics. Prior Anticoagulants: The patient has taken no anticoagulant or antiplatelet agents except for NSAID medication. ASA Grade Assessment: II - A patient with mild systemic disease. After reviewing the risks and benefits, the patient was deemed in satisfactory condition to undergo the procedure. The anesthesia plan was to use monitored anesthesia care (MAC). Immediately prior to administration of medications, the patient was re-assessed for adequacy to receive sedatives. The heart rate, respiratory rate, oxygen saturations, blood pressure, adequacy of pulmonary ventilation, and response to care were monitored throughout the procedure. The physical status of the patient was re-assessed after the procedure. After obtaining informed consent, the endoscope was passed under direct vision. Throughout the procedure, the patient's blood pressure, pulse, and oxygen saturations were monitored continuously. The Colonoscope was introduced through the mouth, and advanced to the second part of duodenum. The upper GI endoscopy was accomplished without difficulty. The patient tolerated the procedure well. Scope In: 11:20:51 AM Scope Out: 11:24:52 AM Total Procedure Duration Time 0 hours 4 minutes 1 second Findings: The examined esophagus was normal. Localized mild inflammation characterized by erosions and erythema was found in the gastric body. Biopsies were taken with a cold forceps for histology. Verification of patient identification for the specimen was done. Biopsies were taken with a cold forceps for Helicobacter pylori testing. Verification of patient identification for the specimen was done. Estimated blood loss was minimal. One non-bleeding cratered gastric ulcer with no stigmata of bleeding was found in the gastric antrum. The lesion was 5 mm in largest dimension. Biopsies were taken with a cold forceps for histology. Verification of patient identification for the specimen was done. Estimated blood loss was minimal. No gross lesions were noted in the first portion of the duodenum. Biopsies were taken with a cold forceps for histology. Verification of patient identification for the specimen was done. Estimated blood loss was minimal. Impression: - Normal esophagus. - Gastritis. Biopsied. - Non-bleeding gastric ulcer with no stigmata of bleeding. Biopsied. - No gross lesions in the first portion of the duodenum. Biopsied. Recommendation: - Patient has a contact number available for emergencies. The signs and symptoms of potential delayed complications were discussed with the patient. Return to normal activities tomorrow. Written discharge instructions were provided to the patient. - Resume previous diet. - Continue present medications. - Await pathology results. - Repeat upper endoscopy for surveillance. Procedure Code(s): --- Professional --- 60999, Esophagogastroduodenosc opy, flexible, transoral; with biopsy, single or multiple CPT copyright 2021 [employer]. All rights reserved. The codes documented in this report are preliminary and upon photographic equipment technician review may be revised to meet current compliance requirements. Po Frost DO 05/20/2024 11:44:04 AM This report has been signed electroni (more content not included)... Normal [facility] H Pylori (initial)on H Pylori (initial) --- Patient Age/Sex Location Account Attending Physician GENEVIEVE BELLO 39/F EN [id number] Po Frost DO Specimen: [id number] Received: 05/20/24 Status: UTE Morales Num: [id number] Spec Type: IMMUNO Subm Dr: Po Frost DO PHYSICIAN INSTITUTION [place] [address] SPECIMEN INFORMATION: Tissue Source: B- Gastric ulcer biopsy Clinical Info: Constipation, abdominal pain Specimen Number: [id number] CPT code: 44918 METHODOLOGY: Deparaffinized sections of prefer/formalin-fixed tissue or PAP/DQ stained slides are incubated with monoclonal/polyclonal antibodies/oligonucleot meliton probes. Localization is made via biotin free immunoperoxidase method. Appropriate controls are performed and reacted as expected. Results on target cell population are indicated in the following table: RESULTS: ANTIBODY / CLONE RESULT Block B H Pylori (polyclonal) positive These tests were developed and their performance characteristics determined by [facility]. They may not have been cleared or approved by the U.S. Food and Drug Administration. The FDA has determined that such clearance or approval is not necessary. The above immunohistochemical/kelsey Marie markers are ordered and reviewed by the Pathologist. INTERPRETATION: B. Gastric ulcer, biopsy: Positive for numerous H.pylori organisms. SJ/mr 05/21/2024 Signed (signature on file) Dr. Onesimo Mooney MD 05/21/24 1250 Normal [facility] Comment on above: Performed By: #### P H.PYLORI #### [facility] [address] [place], [address] MR/POSTOP.Faustino 05-20-2024 MR/POSTOP.[facility] Medical Records Department [address] [place] [address] Anesthesia Postop Eval I 05/20/24 1148 MR#: [id number] Acct: [id number] Name: GENEVIEVE BELLO Rep #: [id number] : 1985 39 From: Lenin Bhatt PCP: Dr. Silva Jaime MD Status:REG SDC Y Race: C Location: [place] [address] Anesthesia: Postop Eval I Current Vital Signs Temperature: 97 F Pulse Rate: 81 Blood Pressure: 103/63 Respiratory Rate: 18 Pulse Ox: 97 Oxygen Delivery Method: Room Air Assessment Airway patent: Yes Spontaneous unlabored respirations: Yes Mental status: Awake and Calm nausea: No Vomiting: No Anesthesia Complication: No Fluid Hydration Crystalloid volume administer (ml): 60 Total IV fluid infused: 60 Progress Note Anesthesia document: Postop Eval 1 completed: Yes 05/20/24 1148 Date Lenin Zafar Signature: Date CC: Signed Normal [facility] MR/[id number] 05-20-2024 [facility] Medical Records Department [address] [place] [address] Anesthesia Postop Eval II 05/20/24 1550 MR#: [id number] Acct: [id number] Name: GENEVIEVE BELLO Rep #: [id number] : 1985 39 From: Constantine Thompson MD PCP: Dr. Silva Jaime MD Status:[facility] Y Race: C Location: EN Anesthesia Postop Eval I Sum Postop Eval Completion status Anesthesia document: Postop Eval 1 completed: Yes Anesthesia Postop Eval I Summary Anesthesia Postop Eval I Summary: Anesthesia Postop Eval I: Assessment Summary Airway patent Yes 05/20/24 11:48 [email or web address] Spontaneous unlabored Yes 05/20/24 11:48 [email or web address] respirations Mental status Awake,Calm 05/20/24 11:48 [email or web address] nausea No 05/20/24 11:48 [email or web address] Vomiting No 05/20/24 11:48 [email or web address] Anesthesia Postop Eval I: Fluid Summary Crystalloid volume administer 60 05/20/24 11:48 [email or web address] (ml) Colloids volume administered ( ml) Blood Product volume administered (ml) Total IV fluid infused 60 05/20/24 11:48 [email or web address] Anesthesia Postop Eval I: Summary Notes Anesthesia Complication No 05/20/24 11:48 [email or web address] Anesthesia Complication Comment: Post-operative progress note Anesthesia: Postop Eval II Evaluation Mental status: Awake and Calm Pain Level: 0 nausea: No Vomiting: No Complications Anesthesia Complication: No 05/20/24 5120 Date Constantine Zafar Signature: Date CC: Signed Normal [facility] Surgery Specimen Level [place] 05-20-2024 Surgery Specimen Level IV Patient Age/Sex Location Account Attending Physician GENEVIEVE BELLO 39/F EN [id number] Po Frost DO Specimen: [id number] Received: 05/20/24-1205 Status: UTE Morales Num: [id number] Spec Type: COLON BX Subm Dr: Po Frost, HEADER OPERATION: Colonoscopy, EGD with biopsy PRE-OP DIAGNOSIS: Constipation, abdominal pain TISSUE SUBMITTED: A- Duodenum biopsy, B- Gastric ulcer biopsy, C- Terminal ileum biopsy, D- Random colon biopsy MICROSCOPIC DIAGNOSIS A. Duodenum, biopsy: Fragments of duodenal mucosa with focal villous blunting, flattening, gastric metaplasia and moderate chronic inflammation. B. Gastric ulcer, biopsy: Moderate chronic active gastritis. See comment. C. Terminal ileum, biopsy: Fragments of small intestinal mucosa, no pathologic diagnosis. See comment. D. Colon, random biopsy: Fragments of colonic mucosa, no pathologic diagnosis. See comment. 05/21/2024 COMMENT B. The results of immunohistochemistry for Helicobacter pylori will be reported separately ([id number]). C. Prominent lymphoid aggregates are noted. D. A fragment of unremarkable small intestinal mucosa is also noted. Correlation with clinical, endoscopic findings and appropriate follow up are necessary. MICROSCOPIC DESCRIPTION Slides are reviewed. GROSS DESCRIPTION A. Received in fixative is one container labeled with the patient's name and designated Duodenum biopsy. The specimen consists of multiple irregular fragments of light viveros soft tissue that in aggregate measure 0.6 x 0.6 x 0.1 cm. The specimen is totally submitted in one cassette. B. Received in fixative is one container labeled with the patient's name and designated Gastric ulcer biopsy. The specimen consists of multiple irregular fragments of light viveros soft tissue that in aggregate measure 1.0 x 0.4 x 0.1 cm. The specimen is totally submitted Patient Age/Sex Location Account Attending Physician FERGENEVIEVEDeejay EVANGELISTA 39/F EN [id number] Po Santosh DO in one cassette. C. Received in fixative is one container labeled with the patient's name and designated Terminal ileum biopsy. The specimen consists of two irregular fragments of light viveros soft tissue that in aggregate measure 1.0 x 0.2 x 0.1 cm. The specimen is totally submitted in one cassette. D. Received in fixative is one container labeled with the patient's name and designated Random colon biopsy. The specimen consists of multiple irregular fragments of light viveros soft tissue that in aggregate measure 2.0 x 0.6 x 0.1 cm. The specimen is totally submitted in one cassette. 05/20/2024 TC:2 CPT:11228w8 Patient Age/Sex Location Account Attending Physician AMIRALUIS ANTONIOGENEVIEVE SPENCERISE 39/F EN [id number] Po Frost DO Signed (signature on file) Dr. Onesimo Mooney MD 05/21/24 1228 Normal [facility] Comment on above: Performed By: #### P SUIV ####[facility] [address] [place], [address] Free T3on 05-13-2024 Free T3 [Mass/Vol] 2.2 pg/mL Normal 2.18-3.98 [facility] Comment on above: Order Comment: Order Date: 05/13/24Order Info: 3051-0 - D3YMaveo Info: 3016-3 - TSHOrder Info: 3024-7 - T4F Performed By: #### L 501.9520, L506.0400, L501.27957 ####[facility] [address] [place], [place], [address] T4 Free Directon 05-13-2024 T4 FREE DIRECT 0.88 ng/dL Normal 0.76-1.46 [facility] Comment on above: Order Comment: Order Date: 05/13/24Order Info: 305-0 - J3VFohgt Info: 3 - TSHOrder Info: 3024-01 - T4F Performed By: #### P H.PYLORI #### [facility] [address] [facility] [place], [place], [address] Thyroid Stim Hormone (TSH)on 05-13-2024 TSH 2.530 uIU/mL Normal 0.358-3.740 [facility] Comment on above: Order Comment: Order Date: 05/13/24Order Info: 3050 - Z1ZRujnv Info: 3015-09 - TSHOrder Info: 3024-01 - T4F Performed By: #### L 501.9520, L506.0400, L501.26711 ####[facility] [address] [facility] [place], [place], [address] Ova and Parasites 8623on OP OVA AND PARASITES EX AM, ROUTINE These results were obtained using wet preparation(s) and trichrome stained smear. This test does not include testing for Crytosporidium parvum, Cyclospora, or Microsporidia. One negative specimen does not rule out the possibility of a parasitic infection. TESTING PERFORMED AT [facility]. ORIGINAL REPORT ON FILE IN LAB CONTAINS ADDITIONAL TEST SITE INFORMATION. Ova/Parasite Exam NO OVA, CYSTS, OR PARASITES FOUND. Normal [facility] Comment on above: Performed By: #### M 100.637, M600.5000, L7000.0700, M100.0605, L7000.0750 ####[facility] [address] [place], [address] RENE Comprehensive Panelon RENE TABLE Comment Normal . [facility] Comment on above: Result Comment: Auto antibody Disease Association Condition Frequency --------- Antinuclear Antibody, SLE, mixed connective Direct (RENE-D) tissue diseases --------- dsDNA SLE 40 - 60% --------- Chromatin Drug induced SLE 90% SLE 48 - 97% --------- SSA (Ro) SLE 25 - 35% Sjogren's Syndrome 40 - 70% Lupus 100% --------- SSB (La) SLE 10% Sjogren's Syndrome 30% --------- Sm (anti-Tavares) SLE 15 - 30% --------- DEVULCANIZER TENDER Mixed Connective Tissue Disease 95% (U1 nRNP, SLE 30 - 50% anti-ribonucleoprotein) Polymyositis and/or Dermatomyositis 20% --------- Scl-70 (antiDNA Scleroderma (diffuse) 20 - 35% topoisomerase) Crest 13% --------- Denise-1 Polymyositis and/or Dermatomyositis 20 - 40% --------- Centromere B Scleroderma - Crest variant 80% Performed By: #### L 501.6783, L3410.2400, L5500.0550, L3100.3425, L101.9900, L2100.0000, L501.9520, L500.4050, L3300.1200, L501.88150, L100.0100, L506.0400, L504.2610, L3100.5440, L3200.1100 ####[facility] [address] [place], [address] ANTI-CENT B AB <0.2 Normal 0.0-0.9 [facility] Comment on above: Performed By: #### L 501.6710, L3410.2400, L5500.0550, L3100.3425, L101.9900, L2100.0000, L501.9520, L500.4050, L3300.1200, L501.36396, L100.0100, L506.0400, L504.2610, L3100.5440, L3200.1100 ####[facility] [address] [place], [place], [address] ANTI-DNA (DS)AB <1 Normal 0-9 [facility] Comment on above: Result Comment: Nega tive <5 Equivocal 5 - 9 Positive >9 Performed By: #### L 501.6710, L3410.2400, L5500.0550, L3100.3425, L101.9900, L2100.0000, L501.9520, L500.4050, L3300.1200, L501.31627, L100.0100, L506.0400, L504.2610, L3100.5440, L3200.1100 ####[facility] [address] [place], [place], [address] ANTI-DENISE-1 <0.2 Normal 0.0-0.9 [facility] Comment on above: Performed By: #### L 501.6710, L3410.2400, L5500.0550, L3100.3425, L101.9900, L2100.0000, L501.9520, L500.4050, L3300.1200, L501.72839, L100.0100, L506.0400, L504.2610, L3100.5440, L3200.1100 ####[facility] [address] [place], [place], [id number] ANTI-SS-A < 0.2 Normal 0.0-0.9 [facility] Comment on above: Performed By: #### L 501.6710, L3410.2400, L5500.0550, L3100.3425, L101.9900, L2100.0000, L501.9520, L500.4050, L3300.1200, L501.56999, L100.0100, L506.0400, L504.2610, L3100.5440, L3200.1100 ####[facility] [address] [place], [place], [address] ANTI-SS-B < 0.2 Normal 0.0-0.9 [facility] Comment on above: Performed By: #### L 501.6710, L3410.2400, L5500.0550, L3100.3425, L101.9900, L2100.0000, L501.9520, L500.4050, L3300.1200, L501.46626, L100.0100, L506.0400, L504.2610, L3100.5440, L3200.1100 ####[facility] [address] [place], [address] ANTICHROMATIN <0.2 Normal 0.0-0.9 [facility] Comment on above: Performed By: #### L 501.6710, L3410.2400, L5500.0550, L3100.3425, L101.9900, L2100.0000, L501.9520, L500.4050, L3300.1200, L501.79809, L100.0100, L506.0400, L504.2610, L3100.5440, L3200.1100 ####[facility] [address] [place], [place], [address] ANTISCLERODERM <0.2 Normal 0.0-0.9 [facility] Comment on above: Performed By: #### L 501.6710, L3410.2400, L5500.0550, L3100.3425, L101.9900, L2100.0000, L501.9520, L500.4050, L3300.1200, L501.29954, L100.0100, L506.0400, L504.2610, L3100.5440, L3200.1100 ####[facility] [address] [place], [place], [address] DEVULCANIZER TENDER Ab <0.2 Normal 0.0-0.9 [facility] Comment on above: Performed By: #### L 501.6710, L3410.2400, L5500.0550, L3100.3425, L101.9900, L2100.0000, L501.9520, L500.4050, L3300.1200, L501.07223, L100.0100, L506.0400, L504.2610, L3100.5440, L3200.1100 ####[facility] [address] [place], [place], [address] TAVARES Ab <0.2 Normal 0.0-0.9 [facility] Comment on above: Performed By: #### L 501.6710, L3410.2400, L5500.0550, L3100.3425, L101.9900, L2100.0000, L501.9520, L500.4050, L3300.1200, L501.04804, L100.0100, L506.0400, L504.2610, L3100.5440, L3200.1100 ####[facility] [address] [place], [place], [address] Calprotectin, Stoolon [address] 17 ug/g Normal 0-120 [facility] Comment on above: Result Comment: Conc entration Interpretation Follow-Up < 5 - 50 ug/g Normal None >50 -120 ug/g Borderline Re-evaluate in 4-6 weeks >120 ug/g Abnormal Repeat as clinically indicated Performed at: [address] [id number] Sap Manager: Peggy Bains MD, Phone: [phone] Performed By: #### M 100.637, M600.5000, L7000.0700, M100.0605, L7000.0750 ####[facility] [address] [place], [place], [address] L5500.0550on 04-20-2024 BEEF <0.10 Normal Class 0 [facility] Comment on above: Performed By: #### L 501.6710, L3410.2400, L5500.0550, L3100.3425, L101.9900, L2100.0000, L501.9520, L500.4050, L3300.1200, L501.67674, L100.0100, L506.0400, L504.2610, L3100.5440, L3200.1100 ####[facility] [address] [place], [place], [address] CHOCOLATE <0.10 Normal Class 0 [facility] Comment on above: Performed By: #### L 501.6710, L3410.2400, L5500.0550, L3100.3425, L101.9900, L2100.0000, L501.9520, L500.4050, L3300.1200, L501.20896, L100.0100, L506.0400, L504.2610, L3100.5440, L3200.1100 ####[facility] [address] [place], [place], [address] CODFISH <0.10 Normal Class 0 [facility] Comment on above: Performed By: #### L 501.6710, L3410.2400, L5500.0550, L3100.3425, L101.9900, L2100.0000, L501.9520, L500.4050, L3300.1200, L501.32624, L100.0100, L506.0400, L504.2610, L3100.5440, L3200.1100 ####[facility] [address] [place], [place], [phone] COMMENT Comment Normal . [facility] Comment on above: Result Comment: Dulce geronimo of Specific IgE Class Description of Class ----- < 0.10 0 Negative 0.10 - 0.31 0/I Equivocal/Low 0.32 - 0.55 I Low 0.56 - 1.40 II Moderate 1.41 - 3.90 III High 3.91 - 19.00 IV Very High 19.01 - 100.00 V Very High >100.00 Very High Performed By: #### L 501.6710, L3410.2400, L5500.0550, L3100.3425, L101.9900, L2100.0000, L501.9520, L500.4050, L3300.1200, L501.48709, L100.0100, L506.0400, L504.2610, L3100.5440, L3200.1100 ####[facility] [address] [facility] [place], [place], [address] CORN <0.10 Normal Class 0 [facility] Comment on above: Performed By: #### L 501.6710, L3410.2400, L5500.0550, L3100.3425, L101.9900, L2100.0000, L501.9520, L500.4050, L3300.1200, L501.92607, L100.0100, L506.0400, L504.2610, L3100.5440, L3200.1100 ####[facility] [address] [place], [place], [address] EGG, WHOLE <0.10 Normal Class 0 [facility] Comment on above: Result Comment: Perf ormed at: [address] [id number] Sap Manager: Jigar Aviles PhD, Phone: [phone] Performed at: [facility] [address] [id number] Sap Manager: Peggy Bains MD, Phone: [phone] Performed By: #### L 501.6710, L3410.2400, L5500.0550, L3100.3425, L101.9900, L2100.0000, L501.9520, L500.4050, L3300.1200, L501.20306, L100.0100, L506.0400, L504.2610, L3100.5440, L3200.1100 ####[facility] [address] [place], [place], [id number] MILK (COW) <0.10 Normal Class 0 [facility] Comment on above: Performed By: #### L 501.6710, L3410.2400, L5500.0550, L3100.3425, L101.9900, L2100.0000, L501.9520, L500.4050, L3300.1200, L501.13766, L100.0100, L506.0400, L504.2610, L3100.5440, L3200.1100 ####[facility] [address] [facility] [place], [address] MUSSELS <0.10 Normal Class 0 [facility] Comment on above: Performed By: #### L 501.6710, L3410.2400, L5500.0550, L3100.3425, L101.9900, L2100.0000, L501.9520, L500.4050, L3300.1200, L501.09993, L100.0100, L506.0400, L504.2610, L3100.5440, L3200.1100 ####[facility] [address] [place], [place], [address] PEANUT <0.10 Normal Class 0 [facility] Comment on above: Performed By: #### L 501.6710, L3410.2400, L5500.0550, L3100.3425, L101.9900, L2100.0000, L501.9520, L500.4050, L3300.1200, L501.57888, L100.0100, L506.0400, L504.2610, L3100.5440, L3200.1100 ####[facility] [address] [place], [place], [phone]) PORK <0.10 Normal Class 0 [facility] Comment on above: Performed By: #### L 501.6710, L3410.2400, L5500.0550, L3100.3425, L101.9900, L2100.0000, L501.9520, L500.4050, L3300.1200, L501.29445, L100.0100, L506.0400, L504.2610, L3100.5440, L3200.1100 ####[facility] [address] [place], [place], [phone]) SALMON <0.10 Normal Class 0 [facility] Comment on above: Performed By: #### L 501.6710, L3410.2400, L5500.0550, L3100.3425, L101.9900, L2100.0000, L501.9520, L500.4050, L3300.1200, L501.05688, L100.0100, L506.0400, L504.2610, L3100.5440, L3200.1100 ####[facility] [address] [place], [place], [address] SHRIMP 0.15 kU/L Abnormal Class 0/I [facility] Comment on above: Performed By: #### L 501.6710, L3410.2400, L5500.0550, L3100.3425, L101.9900, L2100.0000, L501.9520, L500.4050, L3300.1200, L501.08389, L100.0100, L506.0400, L504.2610, L3100.5440, L3200.1100 ####[facility] [address] [place], [place], [phone](464) SOYBEAN <0.10 Normal Class 0 [facility] Comment on above: Performed By: #### L 501.6710, L3410.2400, L5500.0550, L3100.3425, L101.9900, L2100.0000, L501.9520, L500.4050, L3300.1200, L501.49493, L100.0100, L506.0400, L504.2610, L3100.5440, L3200.1100 ####[facility] [address] [place], [place], [address] TUNA <0.10 Normal Class 0 [facility] Comment on above: Performed By: #### L 501.6710, L3410.2400, L5500.0550, L3100.3425, L101.9900, L2100.0000, L501.9520, L500.4050, L3300.1200, L501.22130, L100.0100, L506.0400, L504.2610, L3100.5440, L3200.1100 ####[facility] [address] [place], [place], [address] WHEAT <0.10 Normal Class 0 [facility] Comment on above: Performed By: #### L 501.6710, L3410.2400, L5500.0550, L3100.3425, L101.9900, L2100.0000, L501.9520, L500.4050, L3300.1200, L501.95494, L100.0100, L506.0400, L504.2610, L3100.5440, L3200.1100 ####[facility] [address] [address] [address] [place], [place], [address] L7000.0750on 04-20-2024 P ELASTASE,FECA 29 Low >200 [facility] Comment on above: Result Comment: Resu lt Units: ug Elast./g Severe Pancreatic Insufficiency: <100 Moderate Pancreatic Insufficiency: 100 - 200 Normal: >200 Performed at: - [address] [id number] Sap Manager: Peggy Bains MD, Phone: [phone] Performed By: #### M 100.637, M600.5000, L7000.0700, M100.0605, L7000.0750 ####[facility] [address] [place], [place], [phone] ANCAon 04-19-2024 Atypical pANCA <1:20 Normal Neg:<1:20 [facility] Comment on above: Order Comment: Y Result Comment: The atypical pANCA pattern has been observed in a significant percentage of patients with ulcerative colitis, primary sclerosing cholangitis and autoimmune hepatitis. Performed at: [facility] [address] [id number] Sap Manager: Jigar Aviles PhD, Phone: [phone] Performed at: [facility] [address] [id number] Sap Manager: Peggy Bains MD, Phone: [phone] Performed By: #### L 501.6710, L3410.2400, L5500.0550, L3100.3425, L101.9900, L2100.0000, L501.9520, L500.4050, L3300.1200, L501.40020, L100.0100, L506.0400, L504.2610, L3100.5440, L3200.1100 ####[facility] [address] [place], [place], [id number] Cytoplasmic Ab <1:20 Normal Neg:<1:20 [facility] Comment on above: Order Comment: Y Performed By: #### L 501.6710, L3410.2400, L5500.0550, L3100.3425, L101.9900, L2100.0000, L501.9520, L500.4050, L3300.1200, L501.53210, L100.0100, L506.0400, L504.2610, L3100.5440, L3200.1100 ####[facility] [address] [place], [place], [address] Perinuclear Ab. <1:20 Normal Neg:<1:20 [facility] Comment on above: Order Comment: Y Result Comment: The presence of positive fluorescence exhibiting P-ANCA or C-ANCA patterns alone is not specific for the diagnosis of Warren's Granulomatosis (WG) or microscopic polyangiitis. Decisions about treatment should not be based solely on ANCA IFA results. The International ANCA Group Consensus recommends follow up testing of positive sera with both MO- 3 and MPO-ANCA enzyme immunoassays. As many as 5% serum samples are positive only by EIA. Ref. AM J Clin Pathol 1999;111:507-513. Performed By: #### L 501.6710, L3410.2400, L5500.0550, L3100.3425, L101.9900, L2100.0000, L501.9520, L500.4050, L3300.1200, L501.20558, L100.0100, L506.0400, L504.2610, L3100.5440, L3200.1100 ####[facility] [address] [place], [place], [phone] Celiac Disease Profileon ENDOMYSIAL IGA Negative Normal Negative [facility] Comment on above: Order Comment: Y Performed By: #### L 501.6710, L3410.2400, L5500.0550, L3100.3425, L101.9900, L2100.0000, L501.9520, L500.4050, L3300.1200, L501.09921, L100.0100, L506.0400, L504.2610, L3100.5440, L3200.1100 ####[facility] [address] [place], [place], [id number] tTG IGA <2 Normal 0-3 [facility] Comment on above: Order Comment: Y Result Comment: Nega tive 0 - 3 Weak Positive 4 - 10 Positive >10 Tissue Transglutaminase (tTG) has been identified as the endomysial antigen. Studies have demonstr- ated that endomysial IgA antibodies have over 99% specificity for gluten sensitive enteropathy. Performed By: #### L 501.6710, L3410.2400, L5500.0550, L3100.3425, L101.9900, L2100.0000, L501.9520, L500.4050, L3300.1200, L501.49716, L100.0100, L506.0400, L504.2610, L3100.5440, L3200.1100 ####[facility] [address] [place], [place], [id number] RISHABH + Protein Elect, Serumon 04-19-2024 Albumin [Mass/Vol] 3.5 g/dL Normal 2.9-4.4 [facility] Comment on above: Order Comment: Y Performed By: #### L 501.6710, L3410.2400, L5500.0550, L3100.3425, L101.9900, L2100.0000, L501.9520, L500.4050, L3300.1200, L501.34393, L100.0100, L506.0400, L504.2610, L3100.5440, L3200.1100 ####[facility] [id number] [place], [place], [id number] Albumin/Globulin [Mass ratio] 1.1 {ratio} Normal 0.7-1.7 [facility] Comment on above: Order Comment: Y Performed By: #### L 501.6710, L3410.2400, L5500.0550, L3100.3425, L101.9900, L2100.0000, L501.9520, L500.4050, L3300.1200, L501.64763, L100.0100, L506.0400, L504.2610, L3100.5440, L3200.1100 ####[facility] [id number] [place], [place], [id number] 0.3 g/dL Normal 0.0-0.4 [facility] Comment on above: Order Comment: Y Performed By: #### L 501.6710, L3410.2400, L5500.0550, L3100.3425, L101.9900, L2100.0000, L501.9520, L500.4050, L3300.1200, L501.75818, L100.0100, L506.0400, L504.2610, L3100.5440, L3200.1100 ####[facility] [address] [place], [place], [phone] QFVVP-7-JRBT 1.0 g/dL Normal 0.4-1.0 [facility] Comment on above: Order Comment: Y Performed By: #### L 501.6710, L3410.2400, L5500.0550, L3100.3425, L101.9900, L2100.0000, L501.9520, L500.4050, L3300.1200, L501.78859, L100.0100, L506.0400, L504.2610, L3100.5440, L3200.1100 ####[facility] [address] [facility] [place], [place], [phone] BETA GLOBULIN 1.2 g/dL Normal 0.7-1.3 [facility] Comment on above: Order Comment: Y Performed By: #### L 501.6710, L3410.2400, L5500.0550, L3100.3425, L101.9900, L2100.0000, L501.9520, L500.4050, L3300.1200, L501.83942, L100.0100, L506.0400, L504.2610, L3100.5440, L3200.1100 ####[facility] [address] [place], [place], [phone] GAMMA GLOBULIN 0.6 g/dL Normal 0.4-1.8 [facility] Comment on above: Order Comment: Y Performed By: #### L 501.6710, L3410.2400, L5500.0550, L3100.3425, L101.9900, L2100.0000, L501.9520, L500.4050, L3300.1200, L501.45767, L100.0100, L506.0400, L504.2610, L3100.5440, L3200.1100 ####[facility] [address] [place], [place], [phone] Globulin (S) [Mass/Vol] 3.2 g/dL Normal 2.2-3.9 [facility] Comment on above: Order Comment: Y Performed By: #### L 501.6710, L3410.2400, L5500.0550, L3100.3425, L101.9900, L2100.0000, L501.9520, L500.4050, L3300.1200, L501.46707, L100.0100, L506.0400, L504.2610, L3100.5440, L3200.1100 ####[facility] [address] [place], [place], [phone] RISHABH RESULT,S Comment Normal . [facility] Comment on above: Order Comment: Y Result Comment: No m onoclonality detected. Performed By: #### L 501.6710, L3410.2400, L5500.0550, L3100.3425, L101.9900, L2100.0000, L501.9520, L500.4050, L3300.1200, L501.54245, L100.0100, L506.0400, L504.2610, L3100.5440, L3200.1100 ####[facility] [address] [place], [place], [phone] IMMUNOGLOB A QN 261 mg/dL Normal 87-352 [facility] Comment on above: Order Comment: Y Performed By: #### L 501.6710, L3410.2400, L5500.0550, L3100.3425, L101.9900, L2100.0000, L501.9520, L500.4050, L3300.1200, L501.56884, L100.0100, L506.0400, L504.2610, L3100.5440, L3200.1100 ####[facility] [address] [place], [address] IMMUNOGLOB G QN 657 mg/dL Normal 586-1602 [facility] Comment on above: Order Comment: Y Performed By: #### L 501.6710, L3410.2400, L5500.0550, L3100.3425, L101.9900, L2100.0000, L501.9520, L500.4050, L3300.1200, L501.74188, L100.0100, L506.0400, L504.2610, L3100.5440, L3200.1100 ####[facility] [address] [place], [address] IMMUNOGLOB M QN 36 mg/dL Normal 26-217 [facility] Comment on above: Order Comment: Y Performed By: #### L 501.6710, L3410.2400, L5500.0550, L3100.3425, L101.9900, L2100.0000, L501.9520, L500.4050, L3300.1200, L501.26931, L100.0100, L506.0400, L504.2610, L3100.5440, L3200.1100 ####[facility] [address] [place], [address] M-Wil Not Observed Normal Not Observed [facility] Comment on above: Order Comment: Y Performed By: #### L 501.6710, L3410.2400, L5500.0550, L3100.3425, L101.9900, L2100.0000, L501.9520, L500.4050, L3300.1200, L501.03568, L100.0100, L506.0400, L504.2610, L3100.5440, L3200.1100 ####[facility] [address] [place], [address] NOTE: Comment Normal . [facility] Comment on above: Order Comment: Y Result Comment: Prot ein electrophoresis scan will follow via computer, mail, or hoistman delivery. Performed By: #### L 501.6710, L3410.2400, L5500.0550, L3100.3425, L101.9900, L2100.0000, L501.9520, L500.4050, L3300.1200, L501.27988, L100.0100, L506.0400, L504.2610, L3100.5440, L3200.1100 ####[facility] [address] [place], [place], [phone] Protein [Mass/Vol] 6.7 g/dL Normal 6.0-8.5 [facility] Comment on above: Order Comment: Y Performed By: #### L 501.6710, L3410.2400, L5500.0550, L3100.3425, L101.9900, L2100.0000, L501.9520, L500.4050, L3300.1200, L501.09781, L100.0100, L506.0400, L504.2610, L3100.5440, L3200.1100 ####[facility] [address] [place], [place], [phone] Immunoglobulins G/A/M/Tristan IMMUNOGLOB E QN 106 IU/mL Normal 6-495 [facility] Comment on above: Order Comment: Y Performed By: #### L 501.6710, L3410.2400, L5500.0550, L3100.3425, L101.9900, L2100.0000, L501.9520, L500.4050, L3300.1200, L501.44121, L100.0100, L506.0400, L504.2610, L3100.5440, L3200.1100 ####[facility] [address] [place], [place], [phone] L2100.0000on 04-19-2024 ACCA 34 units Normal 0-90 [facility] Comment on above: Order Comment: Y Result Comment: Nega tive: <80 Equivocal: 80-90 Positive: >90 Performed By: #### L 501.6710, L3410.2400, L5500.0550, L3100.3425, L101.9900, L2100.0000, L501.9520, L500.4050, L3300.1200, L501.21823, L100.0100, L506.0400, L504.2610, L3100.5440, L3200.1100 ####[facility] [address] [place] [id number] ALCA 1 units Normal 0-60 [facility] Comment on above: Order Comment: Y Result Comment: Nega tive:<55 Equivocal: 55-60 Positive: >60 Performed By: #### L 501.6710, L3410.2400, L5500.0550, L3100.3425, L101.9900, L2100.0000, L501.9520, L500.4050, L3300.1200, L501.39628, L100.0100, L506.0400, L504.2610, L3100.5440, L3200.1100 ####[facility] [address] [place] [id number] AMCA 26 units Normal 0-100 [facility] Comment on above: Order Comment: Y Result Comment: Nega tive: <90 Equivocal: 90-100 Positive: >100 This test was developed and its performance characteristics determined by [facility]. It has not been cleared or approved by the Food and Drug Administration. The FDA has determined that such clearance or approval is not necessary. Performed By: #### L 501.6710, L3410.2400, L5500.0550, L3100.3425, L101.9900, L2100.0000, L501.9520, L500.4050, L3300.1200, L501.00072, L100.0100, L506.0400, L504.2610, L3100.5440, L3200.1100 ####[facility] [address] [place] [phone] Atypical pANCA Negative Normal Negative [facility] Comment on above: Order Comment: Y Performed By: #### L 501.6710, L3410.2400, L5500.0550, L3100.3425, L101.9900, L2100.0000, L501.9520, L500.4050, L3300.1200, L501.95141, L100.0100, L506.0400, L504.2610, L3100.5440, L3200.1100 ####[facility] [address] [place], [place], [phone] COMMENT Comment Normal . [facility] Comment on above: Order Comment: Y Result Comment: Qian leanne is not suggestive of Inflammatory Bowel Disease Performed By: #### L 501.6710, L3410.2400, L5500.0550, L3100.3425, L101.9900, L2100.0000, L501.9520, L500.4050, L3300.1200, L501.91574, L100.0100, L506.0400, L504.2610, L3100.5440, L3200.1100 ####[facility] [address] [place], [place], [phone] Jacob 28 units Normal 0-50 [facility] Comment on above: Order Comment: Y Result Comment: Nega tive: <45 Equivocal: 45-50 Positive: >50 Performed By: #### L 501.6710, L3410.2400, L5500.0550, L3100.3425, L101.9900, L2100.0000, L501.9520, L500.4050, L3300.1200, L501.62244, L100.0100, L506.0400, L504.2610, L3100.5440, L3200.1100 ####[facility] [address] [place], [place], [phone] ENTERIC PATHOGEN PANEL STOOL on 04-17-2024 EP PANEL CAMPYLOBACTER Not Detected Norovirus Not Detected Rotavirus Not Detected Salmonella Not Detected Shiga Toxin Not Detected Shigella sp. Not Detected VIBRIO Not Detected Yersinia Not Detected Normal [facility] Comment on above: Performed By: #### M 100.637, M600.5000, L7000.0700, M100.0605, L7000.0750 ####[facility] [address] [place], [address] Stool Lactoferrin/WBCon 03-25 WBCST Normal Reference Ran ge = Negative Fecal WBC Lactoferrin Negative: No Fecal WBC Lactoferrin present Normal [facility] Comment on above: Performed By: #### M 100.637, M600.5000, L7000.0700, M100.0605, L7000.0750 ####[facility] [address] [place], [address] Abdomen Single Viewon 2023 Abdomen Single View [facility] [address] [place] [address] Abdomen Single View MR#: [id number] Acct: [id number] Name: GENEVIEVE BELLO Rep #: [id number] : 1985 F 39 From: Jose Maria Gallagher MD PCP: Care Physician,No Primary Status: REG CL Study: Abdomen Single View Date of Exam: 04/16/24 Exam# [id number] Ordering Dr: Lynnette Salomon [id number] STUDY: X-RAY - ABDOMEN/PELVIS REASON FOR EXAM: Female, 39 years old. Abdominal pain TECHNIQUE: Two AP supine views of the abdomen and pelvis. COMPARISON: None. FINDINGS: Normal visualized lung bases. There is a moderate amount of colonic fecal material. There is no demonstrated free abdominal air. The visualized liver, spleen and kidneys are grossly normal in size and morphology. There is a metallic clip in the left lower quadrant which may be on the patient''s person, Normal visualized osseous structures. RAD/Abdomen Single View IMPRESSION: No acute findings, retained stool Electronically Signed: Jose Gallagher MD at 9:49 EDT , CC: COY Uriarte; No Primary Care Physician Property Analyst: Signed Normal [facility] CBC W/Diff, Automatedon 03-25 Absolute Lymph 4.75 X10 3/uL High 0.83-4.51 [facility] Comment on above: Performed By: #### L 501.6710, L3410.2400, L5500.0550, L3100.3425, L101.9900, L2100.0000, L501.9520, L500.4050, L3300.1200, L501.41955, L100.0100, L506.0400, L504.2610, L3100.5440, L3200.1100 #### [facility] [address] [facility] [place], [address] Absolute Neut 6.4 X10 3/uL Normal 2.0-7.7 [facility] Comment on above: Performed By: #### L 501.6710, L3410.2400, L5500.0550, L3100.3425, L101.9900, L2100.0000, L501.9520, L500.4050, L3300.1200, L501.59248, L100.0100, L506.0400, L504.2610, L3100.5440, L3200.1100 #### [facility] [address] [facility] [place], [address] Basophils/100 WBC (Bld) 0.6 % Normal 0-1 [facility] Comment on above: Performed By: #### L 501.6710, L3410.2400, L5500.0550, L3100.3425, L101.9900, L2100.0000, L501.9520, L500.4050, L3300.1200, L501.66753, L100.0100, L506.0400, L504.2610, L3100.5440, L3200.1100 #### [facility] [address] [place], [place], [phone] (465) Eosinophils/100 WBC (Bld) 1.5 % Normal 0-5 [facility] Comment on above: Performed By: #### L 501.6710, L3410.2400, L5500.0550, L3100.3425, L101.9900, L2100.0000, L501.9520, L500.4050, L3300.1200, L501.46985, L100.0100, L506.0400, L504.2610, L3100.5440, L3200.1100 #### [facility] [address] [facility] [place], [place], [phone] Erythrocyte distribution width (RBC) [Ratio] 13.3 % Normal 11.6-14.6 [facility] Comment on above: Performed By: #### L 501.6710, L3410.2400, L5500.0550, L3100.3425, L101.9900, L2100.0000, L501.9520, L500.4050, L3300.1200, L501.03421, L100.0100, L506.0400, L504.2610, L3100.5440, L3200.1100 #### [facility] [address] [place], [address] Hematocrit (Bld) [Volume fraction] 44.6 % Normal 37-47 [facility] Comment on above: Performed By: #### L 501.6710, L3410.2400, L5500.0550, L3100.3425, L101.9900, L2100.0000, L501.9520, L500.4050, L3300.1200, L501.85185, L100.0100, L506.0400, L504.2610, L3100.5440, L3200.1100 #### [facility] [address] [facility] [place], [address] Hemoglobin (Bld) [Mass/Vol] 14.5 g/dL Normal 12.0-15.0 [facility] Comment on above: Performed By: #### L 501.6710, L3410.2400, L5500.0550, L3100.3425, L101.9900, L2100.0000, L501.9520, L500.4050, L3300.1200, L501.09222, L100.0100, L506.0400, L504.2610, L3100.5440, L3200.1100 #### [facility] [address] [facility] [place], [address] IG% 0.600 Normal 0.0-0.9 [facility] Comment on above: Result Comment: IG% - Immature Granulocytes (promyelocytes, myelocytes and metamyelocytes) > 1% indicates that a LEFT SHIFT is Present. Performed By: #### L 501.6710, L3410.2400, L5500.0550, L3100.3425, L101.9900, L2100.0000, L501.9520, L500.4050, L3300.1200, L501.18832, L100.0100, L506.0400, L504.2610, L3100.5440, L3200.1100 #### [facility] [address] [place], [address] Lymphocytes/100 WBC (Bld) 38.4 % Normal 19-41 [facility] Comment on above: Performed By: #### L 501.6710, L3410.2400, L5500.0550, L3100.3425, L101.9900, L2100.0000, L501.9520, L500.4050, L3300.1200, L501.15254, L100.0100, L506.0400, L504.2610, L3100.5440, L3200.1100 #### [facility] [address] [place], [address] MCH (RBC) [Entitic mass] 29.2 pg Normal 27.0-32.0 [facility] Comment on above: Performed By: #### L 501.6710, L3410.2400, L5500.0550, L3100.3425, L101.9900, L2100.0000, L501.9520, L500.4050, L3300.1200, L501.11003, L100.0100, L506.0400, L504.2610, L3100.5440, L3200.1100 #### [facility] [address] [place], [address] MCHC (RBC) [Mass/Vol] 32.5 g/dL Normal 32-36 [facility] Comment on above: Performed By: #### L 501.6710, L3410.2400, L5500.0550, L3100.3425, L101.9900, L2100.0000, L501.9520, L500.4050, L3300.1200, L501.54656, L100.0100, L506.0400, L504.2610, L3100.5440, L3200.1100 #### [facility] [address] [place], [address] MCV (RBC) [Entitic vol] 89.7 fL Normal 81-99 [facility] Comment on above: Performed By: #### L 501.6710, L3410.2400, L5500.0550, L3100.3425, L101.9900, L2100.0000, L501.9520, L500.4050, L3300.1200, L501.00708, L100.0100, L506.0400, L504.2610, L3100.5440, L3200.1100 #### [facility] [address] [facility] [place], [address] Monocytes/100 WBC (Bld) 7.4 % Normal 0-10 [facility] Comment on above: Performed By: #### L 501.6710, L3410.2400, L5500.0550, L3100.3425, L101.9900, L2100.0000, L501.9520, L500.4050, L3300.1200, L501.03559, L100.0100, L506.0400, L504.2610, L3100.5440, L3200.1100 #### [facility] [address] [facility] [place], [address] Neutrophils/100 WBC (Bld) 51.5 % Normal 47-70 [facility] Comment on above: Performed By: #### L 501.6710, L3410.2400, L5500.0550, L3100.3425, L101.9900, L2100.0000, L501.9520, L500.4050, L3300.1200, L501.58527, L100.0100, L506.0400, L504.2610, L3100.5440, L3200.1100 #### [facility] [address] [facility] [place], [address] Nucleated RBC (Bld) [#/Vol] 0 10*3/uL Normal 0-5 [facility] Comment on above: Performed By: #### L 501.6710, L3410.2400, L5500.0550, L3100.3425, L101.9900, L2100.0000, L501.9520, L500.4050, L3300.1200, L501.00713, L100.0100, L506.0400, L504.2610, L3100.5440, L3200.1100 #### [facility] [address] [facility] [place], [address] Platelet mean volume (Bld) [Entitic vol] 9.2 fL Normal 6.2-12.0 [facility] Comment on above: Performed By: #### L 501.6710, L3410.2400, L5500.0550, L3100.3425, L101.9900, L2100.0000, L501.9520, L500.4050, L3300.1200, L501.73078, L100.0100, L506.0400, L504.2610, L3100.5440, L3200.1100 #### [facility] [address] [place], [place], [phone] (499) Platelets (Bld) [#/Vol] 384 10*3/uL Normal 150-450 [facility] Comment on above: Performed By: #### L 501.6710, L3410.2400, L5500.0550, L3100.3425, L101.9900, L2100.0000, L501.9520, L500.4050, L3300.1200, L501.57014, L100.0100, L506.0400, L504.2610, L3100.5440, L3200.1100 #### [facility] [address] [place], [place], [phone] (052) RBC (Bld) [#/Vol] 4.97 10*6/uL Normal 4.2-5.4 [facility] Comment on above: Performed By: #### L 501.6710, L3410.2400, L5500.0550, L3100.3425, L101.9900, L2100.0000, L501.9520, L500.4050, L3300.1200, L501.33612, L100.0100, L506.0400, L504.2610, L3100.5440, L3200.1100 #### [facility] [address] [place], [place], [phone] (084) RDW SD 43.8 fl Normal 35.1-43.9 [facility] Comment on above: Performed By: #### L 501.6710, L3410.2400, L5500.0550, L3100.3425, L101.9900, L2100.0000, L501.9520, L500.4050, L3300.1200, L501.98178, L100.0100, L506.0400, L504.2610, L3100.5440, L3200.1100 #### [facility] [address] [place], [place], [id number] WBC (Bld) [#/Vol] 12.4 10*3/uL High 4.4-11.0 [facility] Comment on above: Performed By: #### L 501.6710, L3410.2400, L5500.0550, L3100.3425, L101.9900, L2100.0000, L501.9520, L500.4050, L3300.1200, L501.68577, L100.0100, L506.0400, L504.2610, L3100.5440, L3200.1100 #### [facility] [address] [facility] [place], [place], [phone] CRPon 04-16-2024 C-REACTIVE PROT 4.60 mg/L High 0.0-3.0 [facility] Comment on above: Order Comment: 1 Result Comment: C-Re active Protein (CRP) provides useful information for the diagnosis, therapy and monitoring of inflammatory processes and associated diseases. For the evaluation of Relative Risk for Cardiovascular Disease, a High Sensitivity CRP (HSCRP) should be ordered. Performed By: #### L 501.6710, L3410.2400, L5500.0550, L3100.3425, L101.9900, L2100.0000, L501.9520, L500.4050, L3300.1200, L501.68915, L100.0100, L506.0400, L504.2610, L3100.5440, L3200.1100 #### [facility] [address] [facility] [place], [place], [id number] Comprehensive Metabolic Prof ilon 04-16-2024 Albumin [Mass/Vol] 3.7 g/dL Normal 3.2-5.0 [facility] Comment on above: Order Comment: 1 Performed By: #### L 501.6710, L3410.2400, L5500.0550, L3100.3425, L101.9900, L2100.0000, L501.9520, L500.4050, L3300.1200, L501.85275, L100.0100, L506.0400, L504.2610, L3100.5440, L3200.1100 #### [facility] [address] [place], [address] Albumin/Globulin [Mass ratio] 1.1 {ratio} Normal 0.9-2.4 [facility] Comment on above: Order Comment: 1 Performed By: #### L 501.6710, L3410.2400, L5500.0550, L3100.3425, L101.9900, L2100.0000, L501.9520, L500.4050, L3300.1200, L501.02730, L100.0100, L506.0400, L504.2610, L3100.5440, L3200.1100 #### [facility] [address] [place], [place], [id number] ALK P 71 U/L Normal 45-117 [facility] Comment on above: Order Comment: 1 Performed By: #### L 501.6710, L3410.2400, L5500.0550, L3100.3425, L101.9900, L2100.0000, L501.9520, L500.4050, L3300.1200, L501.68174, L100.0100, L506.0400, L504.2610, L3100.5440, L3200.1100 #### [facility] [address] [place], [address] ALT [Catalytic activity/Vol] 31 U/L Normal 13-56 [facility] Comment on above: Order Comment: 1 Performed By: #### L 501.6710, L3410.2400, L5500.0550, L3100.3425, L101.9900, L2100.0000, L501.9520, L500.4050, L3300.1200, L501.59796, L100.0100, L506.0400, L504.2610, L3100.5440, L3200.1100 #### [facility] [address] [place], [place], [id number] AST [Catalytic activity/Vol] 14 U/L Low 15-37 [facility] Comment on above: Order Comment: 1 Performed By: #### L 501.6710, L3410.2400, L5500.0550, L3100.3425, L101.9900, L2100.0000, L501.9520, L500.4050, L3300.1200, L501.53426, L100.0100, L506.0400, L504.2610, L3100.5440, L3200.1100 #### [facility] [address] [place], [place], [id number] Bilirubin [Mass/Vol] 0.60 mg/dL Normal 0.20-1.00 [facility] Comment on above: Order Comment: 1 Result Comment: For patients on eltrombopag therapy, use of Dimension Curtis TBIL is not recommended. Performed By: #### L 501.6710, L3410.2400, L5500.0550, L3100.3425, L101.9900, L2100.0000, L501.9520, L500.4050, L3300.1200, L501.80658, L100.0100, L506.0400, L504.2610, L3100.5440, L3200.1100 #### [facility] [address] [place], [place], [id number] BUN/CRE 30.2 RATIO High 10-20 [facility] Comment on above: Order Comment: 1 Performed By: #### L 501.6710, L3410.2400, L5500.0550, L3100.3425, L101.9900, L2100.0000, L501.9520, L500.4050, L3300.1200, L501.28707, L100.0100, L506.0400, L504.2610, L3100.5440, L3200.1100 #### [facility] [address] [facility] [address] [place], [place], [phone] (196) CA,Total 9.6 mg/dL Normal 8.5-10.1 [facility] Comment on above: Order Comment: 1 Performed By: #### L 501.6710, L3410.2400, L5500.0550, L3100.3425, L101.9900, L2100.0000, L501.9520, L500.4050, L3300.1200, L501.75934, L100.0100, L506.0400, L504.2610, L3100.5440, L3200.1100 #### [facility] [address] [facility] [place], [place], [phone] (592) Chloride [Moles/Vol] 101 mmol/L Normal 98-107 [facility] Comment on above: Order Comment: 1 Performed By: #### L 501.6710, L3410.2400, L5500.0550, L3100.3425, L101.9900, L2100.0000, L501.9520, L500.4050, L3300.1200, L501.95801, L100.0100, L506.0400, L504.2610, L3100.5440, L3200.1100 #### [facility] [address] [place], [place], [phone] (776) CO2 [Moles/Vol] 30.0 mmol/L Normal 21.0-32.0 [facility] Comment on above: Order Comment: 1 Performed By: #### L 501.6710, L3410.2400, L5500.0550, L3100.3425, L101.9900, L2100.0000, L501.9520, L500.4050, L3300.1200, L501.32954, L100.0100, L506.0400, L504.2610, L3100.5440, L3200.1100 #### [facility] [address] [place], [address] Creatinine [Mass/Vol] 0.53 mg/dL Low 0.55-1.02 [facility] Comment on above: Order Comment: 1 Result Comment: The validity of the calculated GFR GFRAA in patients over 70 years has not been determined. Clinical correlation is essential. Performed By: #### L 501.6710, L3410.2400, L5500.0550, L3100.3425, L101.9900, L2100.0000, L501.9520, L500.4050, L3300.1200, L501.69309, L100.0100, L506.0400, L504.2610, L3100.5440, L3200.1100 #### [facility] [address] [place], [address] EST GFR - AA 165 mL/min Normal >60 [facility] Comment on above: Order Comment: 1 Result Comment: Afri can [place] GFR Calc Performed By: #### L 501.6710, L3410.2400, L5500.0550, L3100.3425, L101.9900, L2100.0000, L501.9520, L500.4050, L3300.1200, L501.55844, L100.0100, L506.0400, L504.2610, L3100.5440, L3200.1100 #### [facility] [address] [place], [place], [phone] GAP 4 Low 5-15 [facility] Comment on above: Order Comment: 1 Performed By: #### L 501.6710, L3410.2400, L5500.0550, L3100.3425, L101.9900, L2100.0000, L501.9520, L500.4050, L3300.1200, L501.91122, L100.0100, L506.0400, L504.2610, L3100.5440, L3200.1100 #### [facility] [address] [place], [place], [phone] GFR/1.73 sq M.predicted among non-blacks MDRD (S/P/Bld) [Vol rate/Area] 137 mL/min/{1.73_m2} Normal >60 [facility] Comment on above: Order Comment: 1 Result Comment: Non- GFR Calc Performed By: #### L 501.6710, L3410.2400, L5500.0550, L3100.3425, L101.9900, L2100.0000, L501.9520, L500.4050, L3300.1200, L501.62624, L100.0100, L506.0400, L504.2610, L3100.5440, L3200.1100 #### [facility] [address] [place], [place], [phone] ([phone]) Globulin (S) [Mass/Vol] 3.4 g/dL Normal 2.2-4.2 [facility] Comment on above: Order Comment: 1 Performed By: #### L 501.6710, L3410.2400, L5500.0550, L3100.3425, L101.9900, L2100.0000, L501.9520, L500.4050, L3300.1200, L501.07780, L100.0100, L506.0400, L504.2610, L3100.5440, L3200.1100 #### [facility] [address] [place], [place], [phone] ([phone]) Glucose [Mass/Vol] 90 mg/dL Normal 74-106 [facility] Comment on above: Order Comment: 1 Performed By: #### L 501.6710, L3410.2400, L5500.0550, L3100.3425, L101.9900, L2100.0000, L501.9520, L500.4050, L3300.1200, L501.04877, L100.0100, L506.0400, L504.2610, L3100.5440, L3200.1100 #### [facility] [address] [place], [address] Potassium [Moles/Vol] 4.0 mmol/L Normal 3.5-5.1 [facility] Comment on above: Order Comment: 1 Performed By: #### L 501.6710, L3410.2400, L5500.0550, L3100.3425, L101.9900, L2100.0000, L501.9520, L500.4050, L3300.1200, L501.58776, L100.0100, L506.0400, L504.2610, L3100.5440, L3200.1100 #### [facility] [address] [place], [place], [id number] (432) Sodium [Moles/Vol] 135 mmol/L Low 136-145 [facility] Comment on above: Order Comment: 1 Performed By: #### L 501.6710, L3410.2400, L5500.0550, L3100.3425, L101.9900, L2100.0000, L501.9520, L500.4050, L3300.1200, L501.82441, L100.0100, L506.0400, L504.2610, L3100.5440, L3200.1100 #### [facility] [address] [place], [place], [phone] (265) T PROT 7.1 g/dL Normal 6.4-8.2 [facility] Comment on above: Order Comment: 1 Performed By: #### L 501.6710, L3410.2400, L5500.0550, L3100.3425, L101.9900, L2100.0000, L501.9520, L500.4050, L3300.1200, L501.97257, L100.0100, L506.0400, L504.2610, L3100.5440, L3200.1100 #### [facility] [address] [place], [place], [phone] Urea nitrogen [Mass/Vol] 16 mg/dL Normal 7-18 [facility] Comment on above: Order Comment: 1 Performed By: #### L 501.6710, L3410.2400, L5500.0550, L3100.3425, L101.9900, L2100.0000, L501.9520, L500.4050, L3300.1200, L501.00887, L100.0100, L506.0400, L504.2610, L3100.5440, L3200.1100 #### [facility] [address] [place], [place], [id number] Erythrocyte Sed Rateon 04-16 SED RATE 10 mm/hr Normal 0-30 [facility] Comment on above: Performed By: #### L 501.6710, L3410.2400, L5500.0550, L3100.3425, L101.9900, L2100.0000, L501.9520, L500.4050, L3300.1200, L501.03364, L100.0100, L506.0400, L504.2610, L3100.5440, L3200.1100 #### [facility] [address] [place], [place], [id number] Free T3on 04-16-2024 Free T3 [Mass/Vol] 3.2 pg/mL Normal 2.18-3.98 [facility] Comment on above: Order Comment: 1 Performed By: #### L 501.6710, L3410.2400, L5500.0550, L3100.3425, L101.9900, L2100.0000, L501.9520, L500.4050, L3300.1200, L501.28186, L100.0100, L506.0400, L504.2610, L3100.5440, L3200.1100 #### [facility] [address] [place], [address] Gastroenterology Visit Repor ton 04-16-2024 Gastroenterology Visit Report [facility] [address] [place] [address] OFFICE VISIT Date of Service: 04/16/24 MR#: [id number] Acct: [id number] Name: GENEVIEVE BELLO Rep #: [id number] : 1985 Provider: COY Uriarte Age/Sex: 39/F Location: [facility] Status: Signed Intake Vital Signs 09/08/23 10:09 04/08/24 23:48 Height 5 ft 5 in 5 ft 5 in Intake Visit Reasons: Abdominal pain (pedi) Chief Complaint: constipation, abdominal pain Allergies aspirin Allergy (Severe, Verified 04/08/24 23:52) UNKNOWN Penicillins Adverse Reaction (Mild, Verified 04/08/24 23:52) Itching Medications ???Medication ???Instructions ???Recorded ???Confirmed ???Type linaclotide 72 mcg capsule 72 mcg PO QAM #30 caps 04/16/24 04/16/24 Rx (Linzess) PFSH Medical History Weight gain Abdominal pain Blood in stool Anxiety Depression Heart murmur Colitis Constipation Hemorrhoids Back pain Marijuana smoker Marijuana abuse Surgical History S/P section Family History (Updated 09/08/23 @ 10:08 by Altagracia Clarke) Father Hypertension CAD (coronary artery disease) Uncle Cancer skin Aunt Cancer brain Social History Smoking Status: Current every day smoker tobacco type: cigarettes alcohol intake: never substance use type: marijuana HPI HPI Chief Complaint: constipation, abdominal pain Details: GENEVIEVE BELLO, is a 39 F who presents to the office today for establishment with [facility]. Pt has a PMHx of HTN, GERD, depression, and a heart murmur. She is here today for increasing abdominal pain and constipation. She tells me she was diagnosed with colitis at age 16 with a colonoscopy. She was on asacol for a time period but discontinued it. For the past four years she has been struggling with GI symptoms with abdominal pain, constipation, joint pain, heartburn and nausea. She has taken medication for constipation in the past and says they do not work. She does not want to take miralax daily. She is having problems with working a she feels too unwell to work. She is unsure when her last colonoscopy was. ROS Const Constitutional: Positive for fatigue; No fever(s) or weight change ENT ENT: No difficulty swallowing Gastro GI: Positive for abdominal pain, bloating, change in bowel habits, constipation, excessive flatus, Blood in stool and nausea/dyspepsia; No belching, change in stool character, coffee ground emesis, cramping, diarrhea, heartburn, difficulty swallowing, feeling full early, incontinent of stools, Vomiting blood/hematemesis, loose stools, Black,tarry stools, pain with swallowing, vomiting or other Musc Musculoskeletal: Positive for back pain, muscle cramps, numbness and tingling; No joint pain Skin Skin: Positive for dry skin; No yellowing of the eye or itchy eyes Neuro Neurology: Positive for numbness and tingling Psych Psychiatric: Positive for anxiety, No depression and Positive for obsessions/compulsions Endo Endocrine: Positive for fatigue; No weight change Aller/Imm Allergy/Immunologic: No itchy eyes Anthony/Lymp Hematologic/Lymphatic: No easy bleeding or easy bruising Exam Const General: cooperative and comfortable Nutritional Appearance: average body habitus and well nourished [facility] Head: normal to inspection Ears: hearing grossly normal bilaterally Nose: external nose normal Throat: posterior oropharynx normal Eyes General: appearance normal, both eyes and all related structures Neck Neck: normal visual inspection Chest Chest palpation inspection: normal inspection of the chest Resp Effort Inspection: normal respiratory effort GI Inspection: normal to inspection Percussion: normal to percussion Palpation: no hepatosplenomegaly Skin General: no rashes or lesions noted Neuro General: patient alert Extrem General: normal to inspection Psych Affect: normal affect Assessment and Plan Assessment and Plan (1) Abdominal pain: Status: Acute Plan: Pt is a 39 to female here today for evaluation of abdominal pain, nausea, constipation and heartburn which has been going on for 4 years. She tells me she was diagnosed with colitis as a teenager and was on asocal but has not had f/u in recent years. She is unsure when her last scopes were. I will order blood work for IBD, celiac or other autoimmune conditions. I ordered stool testing. To rule out obstruction I ordered KUB. SHe will be scheduled for EGD and colonoscopy. I will start her on Linzess for constipation and abdominal pain as she has tried other medications and will not take daily miralax. Differental diangosis includes IBS, IBD, celiac, or fo (more content not included)... Normal [facility] LDHon 04-16-2024 LDH 144 U/L Normal 84-246 [facility] Comment on above: Order Comment: 1 Performed By: #### L 501.6710, L3410.2400, L5500.0550, L3100.3425, L101.9900, L2100.0000, L501.9520, L500.4050, L3300.1200, L501.53365, L100.0100, L506.0400, L504.2610, L3100.5440, L3200.1100 ####[facility] [address] [place], [place], [phone] T4 Free Directon 04-16-2024 T4 FREE DIRECT 1.20 ng/dL Normal 0.76-1.46 [facility] Comment on above: Order Comment: 1 Performed By: #### L 501.6710, L3410.2400, L5500.0550, L3100.3425, L101.9900, L2100.0000, L501.9520, L500.4050, L3300.1200, L501.05892, L100.0100, L506.0400, L504.2610, L3100.5440, L3200.1100 ####[facility] [address] [place], [address] Thyroid Stim Hormone (TSH)on 04-16-2024 TSH 3.910 uIU/mL High 0.358-3.740 [facility] Comment on above: Order Comment: 1 Performed By: #### L 501.6710, L3410.2400, L5500.0550, L3100.3425, L101.9900, L2100.0000, L501.9520, L500.4050, L3300.1200, L501.60256, L100.0100, L506.0400, L504.2610, L3100.5440, L3200.1100 ####[facility] [address] [place], [address] Basic Metabolic Profile (BMP )on 04-09-2024 BUN/CRE 20.3 RATIO High 10-20 [facility] Comment on above: Performed By: #### L 500.2500, L100.0100, L101.9900, L501.6710 ####[facility] [address] [place], [address] CA,Total 9.2 mg/dL Normal 8.5-10.1 [facility] Comment on above: Performed By: #### L 500.2500, L100.0100, L101.9900, L501.6710 ####[facility] [address] [place], [address] Chloride [Moles/Vol] 102 mmol/L Normal 98-107 [facility] Comment on above: Performed By: #### L 500.2500, L100.0100, L101.9900, L501.6710 ####[facility] [address] [place], [address] CO2 [Moles/Vol] 28.0 mmol/L Normal 21.0-32.0 [facility] Comment on above: Performed By: #### L 500.2500, L100.0100, L101.9900, L501.6710 ####[facility] [address] [place], [address] Creatinine [Mass/Vol] 0.79 mg/dL Normal 0.55-1.02 [facility] Comment on above: Result Comment: The validity of the calculated GFR GFRAA in patients over 70 years has not been determined. Clinical correlation is essential. Performed By: #### L 500.2500, L100.0100, L101.9900, L501.6710 ####[facility] [address] [place], [address] ECRCL 114.33 ml/min Normal [facility] Comment on above: Performed By: #### L 500.2500, L100.0100, L101.9900, L501.6710 ####[facility] [address] [place], [address] EST GFR - AA 104 mL/min Normal >60 [facility] Comment on above: Result Comment: Afri can Norwegian GFR Calc Performed By: #### L 500.2500, L100.0100, L101.9900, L501.6710 ####[facility] [address] [place], [address] GAP 6 Normal 5-15 [facility] Comment on above: Performed By: #### L 500.2500, L100.0100, L101.9900, L501.6710 ####[facility] [address] [place], [address] GFR/1.73 sq M.predicted among non-blacks MDRD (S/P/Bld) [Vol rate/Area] 86 mL/min/{1.73_m2} Normal >60 [facility] Comment on above: Result Comment: Non- GFR Calc Performed By: #### L 500.2500, L100.0100, L101.9900, L501.6710 ####[facility] [address] [place], [address] Glucose [Mass/Vol] 107 mg/dL High 74-106 [facility] Comment on above: Result Comment: Fast ing Glucose result from 100 to 125 mg/dL suggests IMPAIRED HOMEOSTASIS per A.D.A. criteria. Performed By: #### L 500.2500, L100.0100, L101.9900, L501.6710 ####[facility] [address] [place], [address] Potassium [Moles/Vol] 3.8 mmol/L Normal 3.5-5.1 [facility] Comment on above: Performed By: #### L 500.2500, L100.0100, L101.9900, L501.6710 ####[facility] [address] [place], [address] Sodium [Moles/Vol] 136 mmol/L Normal 136-145 [facility] Comment on above: Performed By: #### L 500.2500, L100.0100, L101.9900, L501.6710 ####[facility] [address] [place], [address] Urea nitrogen [Mass/Vol] 16 mg/dL Normal 7-18 [facility] Comment on above: Performed By: #### L 500.2500, L100.0100, L101.9900, L501.6710 ####[facility] [address] [place], [address] CBC W/Diff, Automatedon - Absolute Lymph 3.75 X10 3/uL Normal 0.83-4.51 [facility] Comment on above: Performed By: #### L 500.2500, L100.0100, L101.9900, L501.6710 ####[facility] [address] [place], [address] Absolute Neut 6.9 X10 3/uL Normal 2.0-7.7 [facility] Comment on above: Performed By: #### L 500.2500, L100.0100, L101.9900, L501.6710 ####[facility] [address] [place], [address] Basophils/100 WBC (Bld) 0.7 % Normal 0-1 [facility] Comment on above: Performed By: #### L 500.2500, L100.0100, L101.9900, L501.6710 ####[facility] [address] [place], [address] Eosinophils/100 WBC (Bld) 1.3 % Normal 0-5 [facility] Comment on above: Performed By: #### L 500.2500, L100.0100, L101.9900, L501.6710 ####[facility] [address] [place], [address] Erythrocyte distribution width (RBC) [Ratio] 12.7 % Normal 11.6-14.6 [facility] Comment on above: Performed By: #### L 500.2500, L100.0100, L101.9900, L501.6710 ####[facility] [address] [place], [address] Hematocrit (Bld) [Volume fraction] 39.4 % Normal 37-47 [facility] Comment on above: Performed By: #### L 500.2500, L100.0100, L101.9900, L501.6710 ####[facility] [address] [place], [address] Hemoglobin (Bld) [Mass/Vol] 13.1 g/dL Normal 12.0-15.0 [facility] Comment on above: Performed By: #### L 500.2500, L100.0100, L101.9900, L501.6710 ####[facility] [address] [place], [address] IG% 0.300 Normal 0.0-0.9 [facility] Comment on above: Result Comment: IG% - Immature Granulocytes (promyelocytes, myelocytes and metamyelocytes) > 1% indicates that a LEFT SHIFT is Present. Performed By: #### L 500.2500, L100.0100, L101.9900, L501.6710 ####[facility] [address] [place], [address] Lymphocytes/100 WBC (Bld) 31.7 % Normal 19-41 [facility] Comment on above: Performed By: #### L 500.2500, L100.0100, L101.9900, L501.6710 ####[facility] [address] [place], [address] MCH (RBC) [Entitic mass] 29.8 pg Normal 27.0-32.0 [facility] Comment on above: Performed By: #### L 500.2500, L100.0100, L101.9900, L501.6710 ####[facility] [address] [place], [address] MCHC (RBC) [Mass/Vol] 33.2 g/dL Normal 32-36 [facility] Comment on above: Performed By: #### L 500.2500, L100.0100, L101.9900, L501.6710 ####[facility] [address] [place], [address] MCV (RBC) [Entitic vol] 89.7 fL Normal 81-99 [facility] Comment on above: Performed By: #### L 500.2500, L100.0100, L101.9900, L501.6710 ####[facility] [address] [place], [address] Monocytes/100 WBC (Bld) 7.9 % Normal 0-10 [facility] Comment on above: Performed By: #### L 500.2500, L100.0100, L101.9900, L501.6710 ####[facility] [address] [place], [address] Neutrophils/100 WBC (Bld) 58.1 % Normal 47-70 [facility] Comment on above: Performed By: #### L 500.2500, L100.0100, L101.9900, L501.6710 ####[facility] [address] [place], [address] Nucleated RBC (Bld) [#/Vol] 0 10*3/uL Normal 0-5 [facility] Comment on above: Performed By: #### L 500.2500, L100.0100, L101.9900, L501.6710 ####[facility] [address] [place], [address] Platelet mean volume (Bld) [Entitic vol] 9.6 fL Normal 6.2-12.0 [facility] Comment on above: Performed By: #### L 500.2500, L100.0100, L101.9900, L501.6710 ####[facility] [address] [place], [address] Platelets (Bld) [#/Vol] 366 10*3/uL Normal 150-450 [facility] Comment on above: Performed By: #### L 500.2500, L100.0100, L101.9900, L501.6710 ####[facility] [address] [place], [address] RBC (Bld) [#/Vol] 4.39 10*6/uL Normal 4.2-5.4 [facility] Comment on above: Performed By: #### L 500.2500, L100.0100, L101.9900, L501.6710 ####[facility] [address] [place], [address] RDW SD 42.0 fl Normal 35.1-43.9 [facility] Comment on above: Performed By: #### L 500.2500, L100.0100, L101.9900, L501.6710 ####[facility] [address] [place], [address] WBC (Bld) [#/Vol] 11.8 10*3/uL High 4.4-11.0 [facility] Comment on above: Performed By: #### L 500.2500, L100.0100, L101.9900, L501.6710 ####[facility] [address] [place], [address] CRPon 04-09-2024 C-REACTIVE PROT < 2.90 Normal 0.0-3.0 [facility] Comment on above: Result Comment: C-Re active Protein (CRP) provides useful information for the diagnosis, therapy and monitoring of inflammatory processes and associated diseases. For the evaluation of Relative Risk for Cardiovascular Disease, a High Sensitivity CRP (HSCRP) should be ordered. Performed By: #### L 500.2500, L100.0100, L101.9900, L501.6710 ####[facility] [address] [place], [address] Emergency Department Summary on 04-09-2024 Emergency Department Summary [facility] Medical Records Department [address] [place] [address] Emergency Department Summary 04/09/24 MR#: [id number] Acct: [id number] Name: GENEVIEVE BELLO Rep #: [id number] : 1985 39 From: Raudel Colunga DO PCP: Care Physician,No Primary Status:DEP ER Location: ED HPI History of Present Illness Chief Complaint: Abd Pain Informant: patient Narrative Narrative: Patient is a 39-year-old female with past medical history of anxiety as well as depression GERD and colitis. She states that she was seen at an outside facility where she was diagnosed with a UTI and is currently on Keflex. She states she has been taking the Keflex for a few days but now has developed pain in the left lower quadrant of her abdomen. She reports no nausea vomiting diarrhea dysuria or constipation. She states that she has not been seen for colitis in multiple years but was diagnosed at age 16. She reports she is concerned this could be a potential colitis flare or reaction to the Keflex and therefore comes in for evaluation [facility] Medical History Weight gain Abdominal pain Blood in stool Anxiety Depression Heart murmur Colitis Constipation Hemorrhoids Back pain Marijuana smoker Marijuana abuse Home Medications ???Medication ???Instructions ???Recorded ???Last Taken ???Type cephalexin 500 mg capsule 500 mg PO Q12.TCU 04/08/24 Unknown History oxycodone-acetaminophen 5 mg-325 1 tab PO Q6H PRN pain 3 days #12 04/09/24 Unknown Rx mg tablet (Percocet) tabs prednisone 20 mg tablet 40 mg (2 x 20 mg) PO DAILY 5 days 04/09/24 Unknown Rx #10 tabs Allergy/AdvReac Type Severity Reaction Status Date / Time aspirin Allergy Severe UNKNOWN Verified 04/08/24 23:52 Penicillins AdvReac Mild Itching Verified 04/08/24 23:52 Family History (Updated 09/08/23 @ 10:08 by Altagracia Clarke) Father Hypertension CAD (coronary artery disease) Uncle Cancer skin Aunt Cancer brain Surgical History S/P section Social History Smoking Status: Current every day smoker tobacco type: cigarettes alcohol intake: never substance use type: marijuana ROS ROS ED Constitutional Constitutional ED: Denies chills or fever(s) Eyes Eyes: Denies blurry vision or change in vision ENT ENT ED: Denies rhinorrhea or sore throat Cardiovascular Cardiovascular: Denies chest pain or palpitations Respiratory/Chest Respiratory/Chest: Denies cough or dyspnea Gastrointestinal Gastrointestinal: Reports abdominal pain and constipation; Denies diarrhea, nausea or vomiting Genitourinary Genitourinary ED: Denies dysuria Musculoskeletal Musculoskeletal: Denies myalgias Integumentary Denies rash Neurologic Neurologic: Denies headache(s) Hematologic/Lymphatic Hematologic/Lymphatic: Denies easy bleeding or easy bruising EXAM Physical Exam Const Vital Signs: 04/08/24 23:48 04/09/24 01:47 04/09/24 02:00 Temperature 97.8 F 98.2 F Temperature Source Temporal Pulse Rate 78 75 69 Respiratory Rate 18 18 18 Blood Pressure 155/84 H 140/86 H 132/74 H Blood Pressure Mean 107 104 93 Pulse Ox 98 99 99 Oxygen Delivery Method Room Air Room Air Positive well nourished and well developed General Appearance ED: well developed; Negative for pallor HEENT Reports moist mucous membranes HEENT Narrative: No tongue or lip swelling no oral lesions no airway edema or compromise No secondary findings in the posterior pharynx to suggest infection Eyes PERRL and EOMs intact bilaterally General Eye ED: Negative for pale conjunctiva or scleral icterus Neck supple Neck Narrative: No nuchal rigidity or meningeal signs Chest Wall palpation of chest normal Resp normal respiratory effort and clear to auscultation bilaterally Cardio regular rhythm Rate: other Other Details: Radial and carotid pulses are equal and symmetric GI non-distended and no masses GI Narrative: Abdomen is soft and nondistended with hyperactive bowel sounds. There is pain on palpation in the left lower quadrant without voluntary guarding or rigidity or pulsatile mass Auscultation: hyperactive bowel sounds Palpation: soft Back/Spine no CVA tenderness Extremity normal to inspection Neuro oriented x3, CN's II-XII intact bilaterally and no sensory deficits noted Sensorium / Orientation: alert Psych mental status grossly normal Skin no rashes or lesions noted and no wounds Skin Narrative: No oral lesions No erythema or rash present No palm or sole involvement General Skin Exam: Negative for jaundice or pallor MDM MDM MDM Narrative Medical decision making (more content not included)... Normal [facility] Erythrocyte Sed Rateon 04-09 SED RATE 16 mm/hr Normal 0-30 [facility] Comment on above: Performed By: #### L 500.2500, L100.0100, L101.9900, L501.6710 ####[facility] [address] [facility], [address] ,Serum,hCG Quali.on 04-09-2024 HCG, SERUM QUAL Negative Normal [facility] Comment on above: Performed By: #### L 700.6800 ####[facility] [address] [facility], [address] Emergency Department Summary on 10-22-2023 Emergency Department Summary [facility] Medical Records Department [address] [place] [address] Emergency Department Summary 10/22/23 MR#: [id number] Acct: [id number] Name: GENEVIEVE BELLO Rep #: [id number] : 1985 38 From: Broderick Ayala MD PCP: Vanessa Ragland, DO Status:REG ER Location: ED HPI HPI - GI History of Present Illness Chief Complaint: Abd Pain Informant: patient Narrative Narrative: Patient presents with abdominal pain. She states she has seen her doctor but she has just done labs and referred her to GI who she cannot get into until March. She is not sure what to do she states. The symptoms that she has, which includes trouble having bowel movements, tenesmus, blood for the past 3 weeks on occasion, without fevers, nausea or vomiting, or any new symptoms otherwise, have been present for years. She states when she was 16 she had a colonoscopy for similar symptoms and was diagnosed with colitis, she was placed on Asacol which she took for maybe a year until it ran out then she did not get it filled nor did she follow-up and she has really never followed up or been seen since, she states he was following [facility] for some time but now she is here and trying to get established with care. Has been following with her PCP. [facility] Medical History Abdominal pain Anxiety Back pain Blood in stool Colitis Constipation Depression Heart murmur Hemorrhoids Marijuana abuse Marijuana smoker Weight gain Home Medications cyclobenzaprine 10 mg tablet 10 mg PO TID PRN Muscle Spasm 5 days #15 TABLETS 08/26/23 [Rx Last Taken Unknown] ergocalciferol (vitamin D2) 1,250 mcg (50,000 unit) capsule 50,000 unit PO SA 08/26/23 [History Last Taken Unknown] hydrocodone-acetaminoph en 5-325mg 5mg-325mg 1 tab PO Q4H PRN PRN Pain 3 days #7 TABLETS 08/26/23 [Rx Last Taken Unknown] naproxen 500 mg tablet 500 mg PO BID #14 tabs 08/26/23 [Rx Last Taken Unknown] omeprazole 40 mg capsule,delayed release 40 mg PO QDAY #30 caps 09/08/23 [Rx Last Taken Unknown] ciprofloxacin HCl 500 mg tablet 500 mg PO BID #14 TABLETS 10/22/23 [Rx Last Taken Unknown] dicyclomine 10 mg capsule 20 mg (2 x 10 mg) PO Q6H PRN PRN abdominal pain #30 CAPSULES 10/22/23 [Rx Last Taken Unknown] metronidazole 500 mg tablet 500 mg PO BID #14 tabs 10/22/23 [Rx Last Taken Unknown] prednisone 20 mg tablet 40 mg (2 x 20 mg) PO DAILY #10 tabs 10/22/23 [Rx Last Taken Unknown] Allergy/AdvReac Type Severity Reaction Status Date / Time aspirin Allergy Severe UNKNOWN Verified 10/22/23 20:18 Penicillins AdvReac Mild Itching Verified 10/22/23 20:18 Family History (Updated 09/08/23 @ 10:08 by Altagracia Clarke) Father Hypertension CAD (coronary artery disease) Uncle Cancer skin Aunt Cancer brain Surgical History S/P section Social History Smoking Status: Current every day smoker tobacco type: cigarettes alcohol intake: never substance use type: marijuana ROS ROS ED Constitutional Constitutional ED: Denies chills or fever(s) Eyes Eyes: Denies change in vision or diplopia ENT ENT ED: Denies rhinorrhea or sore throat Cardiovascular Cardiovascular: Denies chest pain or palpitations Respiratory/Chest Respiratory/Chest: Denies cough or dyspnea Gastrointestinal Gastrointestinal: Reports as per HPI, abdominal pain, hematochezia and tenesmus; Denies diarrhea, melena, nausea or vomiting Genitourinary Genitourinary ED: Denies dysuria or hematuria Musculoskeletal Musculoskeletal: Denies back pain or neck pain Integumentary Denies abscess or rash Neurologic Neurologic: Denies headache(s), paresthesias or weakness Psychiatric Psychiatric: Denies suicidal thoughts EXAM Physical Exam Const Vital Signs: 10/22/23 20:16 10/22/23 20:16 Temperature 96.8 F L Temperature Source Temporal Pulse Rate 86 86 Respiratory Rate 12 14 Blood Pressure 163/82 H 163/82 H Blood Pressure Mean 109 109 Pulse Ox 100 100 Oxygen Delivery Method Room Air Room Air Positive well nourished and well developed General Appearance ED: well developed and NAD HEENT Reports moist mucous membranes normocephalic and atraumatic Eyes PERRL and EOMs intact bilaterally Neck full ROM and supple Resp normal respiratory effort and clear to auscultation bilaterally Cardio regular rate, regular rhythm and no murmurs GI non-distended GI Narrative: Left lower quadrant tenderness without guarding or rebound. No other areas of tenderness. Auscultation: normoactive bowel sounds Palpation: soft Back/Spine no CVA tenderness General Back: other FROM Extremity normal to inspection General Extremety ED: Negative (more content not included)... Normal [facility] Absolute lymphocyte countOrd ered By: Vanessa Ragland on 10-19-2023 Lymphocytes Auto (Unsp spec) [#/Vol] 2.96 10*3/uL 0.83-4.51 [facility] Automated lymphocyte count a s percentage of total leukocytesOrdered By: Vanessa Peoplesnger on 10-19-2023 Lymphocytes/100 WBC Auto (Unsp spec) 28.7 % 19-41 [facility] Basophil percentageOrdered B y: Vanessa Peoplesnger on 10-19-2023 Basophils/100 WBC (Bld) 0.5 % 0-1 [facility] Bilirubin [Mass/Vol] 0.30 mg/dL 0.20-1.00 [facility] Comment on above: For patients on eltr ombopag therapy, use of Dimension Curtis TBIL is not recommended. Chloride [Moles/Vol] 108 mmol/L 98-107 [facility] Eosinophils/100 WBC (Bld) 1.3 % 0-5 [facility] Glucose [Mass/Vol] 99 mg/dL 74-106 [facility] Hemoglobin (Bld) [Mass/Vol] 12.6 g/dL 12.0-15.0 [facility] Monocytes/100 WBC (Bld) 6.7 % 0-10 [facility] Neutrophils (Bld) [#/Vol] 6.5 10*3/uL 2.0-7.7 [facility] Neutrophils/100 WBC (Bld) 62.6 % 47-70 [facility] Potassium [Moles/Vol] 4.1 mmol/L 3.5-5.1 [facility] Protein [Mass/Vol] 6.7 g/dL 6.4-8.2 [facility] Sodium [Moles/Vol] 140 mmol/L 136-145 [facility] WBC (Bld) [#/Vol] 10.3 10*3/uL 4.4-11.0 [facility] CBC W/Diff, Automatedon 09-22 Absolute Lymph 2.96 X10 3/uL Normal 0.83-4.51 [facility] Comment on above: Order Comment: Order Date: 10/18/23Order Info: 0184-1 - CBCD Performed By: #### L 501.5200, L500.4050, L503.0105, L501.9520, L100.0100 ####[facility] [address] [place], [address] Absolute Neut 6.5 X10 3/uL Normal 2.0-7.7 [facility] Comment on above: Order Comment: Order Date: 10/18/23Order Info: 018- - CBCD Performed By: #### L 501.5200, L500.4050, L503.0105, L501.9520, L100.0100 ####[facility] [address] [place], [address] Basophils/100 WBC (Bld) 0.5 % Normal 0-1 [facility] Comment on above: Order Comment: Order Date: 10/18/23Order Info: 018-1 - CBCD Performed By: #### L 501.5200, L500.4050, L503.0105, L501.9520, L100.0100 ####[facility] [address] [place], [address] Eosinophils/100 WBC (Bld) 1.3 % Normal 0-5 [facility] Comment on above: Order Comment: Order Date: 10/18/23Order Info: 0184-1 - CBCD Performed By: #### L 501.5200, L500.4050, L503.0105, L501.9520, L100.0100 ####[facility] [address] [place], [address] Erythrocyte distribution width (RBC) [Ratio] 12.9 % Normal 11.6-14.6 [facility] Comment on above: Order Comment: Order Date: 10/18/23Order Info: 0184-1 - CBCD Performed By: #### L 501.5200, L500.4050, L503.0105, L501.9520, L100.0100 ####[facility] [address] [place], [address] Hematocrit (Bld) [Volume fraction] 37.7 % Normal 37-47 [facility] Comment on above: Order Comment: Order Date: 10/18/23Order Info: 0184-1 - CBCD Performed By: #### L 501.5200, L500.4050, L503.0105, L501.9520, L100.0100 ####[facility] [address] [place], [address] Hemoglobin (Bld) [Mass/Vol] 12.6 g/dL Normal 12.0-15.0 [facility] Comment on above: Order Comment: Order Date: 10/18/23Order Info: 0184-1 - CBCD Performed By: #### L 501.5200, L500.4050, L503.0105, L501.9520, L100.0100 ####[facility] [address] [place], [address] IG% 0.200 Normal 0.0-0.9 [facility] Comment on above: Order Comment: Order Date: 10/18/23Order Info: 0184-1 - CBCD Result Comment: IG% - Immature Granulocytes (promyelocytes, myelocytes and metamyelocytes) > 1% indicates that a LEFT SHIFT is Present. Performed By: #### L 501.5200, L500.4050, L503.0105, L501.9520, L100.0100 ####[facility] [address] [place], [address] Lymphocytes/100 WBC (Bld) 28.7 % Normal 19-41 [facility] Comment on above: Order Comment: Order Date: 10/18/23Order Info: 0184-1 - CBCD Performed By: #### L 501.5200, L500.4050, L503.0105, L501.9520, L100.0100 ####[facility] [address] [place], [address] MCH (RBC) [Entitic mass] 30.0 pg Normal 27.0-32.0 [facility] Comment on above: Order Comment: Order Date: 10/18/23Order Info: 018-1 - CBCD Performed By: #### L 501.5200, L500.4050, L503.0105, L501.9520, L100.0100 ####[facility] [address] [place], [address] MCHC (RBC) [Mass/Vol] 33.4 g/dL Normal 32-36 [facility] Comment on above: Order Comment: Order Date: 10/18/23Order Info: 018- - CBCD Performed By: #### L 501.5200, L500.4050, L503.0105, L501.9520, L100.0100 ####[facility] [address] [place], [address] MCV (RBC) [Entitic vol] 89.8 fL Normal 81-99 [facility] Comment on above: Order Comment: Order Date: 10/18/23Order Info: 018- - CBCD Performed By: #### L 501.5200, L500.4050, L503.0105, L501.9520, L100.0100 ####[facility] [address] [place], [address] Monocytes/100 WBC (Bld) 6.7 % Normal 0-10 [facility] Comment on above: Order Comment: Order Date: 10/18/23Order Info: 0184-1 - CBCD Performed By: #### L 501.5200, L500.4050, L503.0105, L501.9520, L100.0100 ####[facility] [address] [place], [address] Neutrophils/100 WBC (Bld) 62.6 % Normal 47-70 [facility] Comment on above: Order Comment: Order Date: 10/18/23Order Info: 0184-1 - CBCD Performed By: #### L 501.5200, L500.4050, L503.0105, L501.9520, L100.0100 ####[facility] [address] [place], [address] Nucleated RBC (Bld) [#/Vol] 0 10*3/uL Normal 0-5 [facility] Comment on above: Order Comment: Order Date: 10/18/23Order Info: 0184-1 - CBCD Performed By: #### L 501.5200, L500.4050, L503.0105, L501.9520, L100.0100 ####[facility] [address] [place], [address] Platelet mean volume (Bld) [Entitic vol] 9.3 fL Normal 6.2-12.0 [facility] Comment on above: Order Comment: Order Date: 10/18/23Order Info: 0184-1 - CBCD Performed By: #### L 501.5200, L500.4050, L503.0105, L501.9520, L100.0100 ####[facility] [address] [place], [address] Platelets (Bld) [#/Vol] 342 10*3/uL Normal 150-450 [facility] Comment on above: Order Comment: Order Date: 10/18/23Order Info: 0184-1 - CBCD Performed By: #### L 501.5200, L500.4050, L503.0105, L501.9520, L100.0100 ####[facility] [address] [place], [address] RBC (Bld) [#/Vol] 4.20 10*6/uL Normal 4.2-5.4 [facility] Comment on above: Order Comment: Order Date: 10/18/23Order Info: 0184-1 - CBCD Performed By: #### L 501.5200, L500.4050, L503.0105, L501.9520, L100.0100 ####[facility] [address] [place], [address] RDW SD 42.5 fl Normal 35.1-43.9 [facility] Comment on above: Order Comment: Order Date: 10/18/23Order Info: 0184-1 - CBCD Performed By: #### L 501.5200, L500.4050, L503.0105, L501.9520, L100.0100 ####[facility] [address] [place], [address] WBC (Bld) [#/Vol] 10.3 10*3/uL Normal 4.4-11.0 [facility] Comment on above: Order Comment: Order Date: 10/18/23Order Info: 0184-1 - CBCD Performed By: #### L 501.5200, L500.4050, L503.0105, L501.9520, L100.0100 ####[facility] [address] [place], [address] Comprehensive Metabolic Prof ilon 10-19-2023 Albumin [Mass/Vol] 3.3 g/dL Normal 3.2-5.0 [facility] Comment on above: Order Comment: Order Date: 10/18/23Order Info: 0786-1 - CMPOrder Info: [id number] - MGOrder Info: 3016-3 - TSH Performed By: #### L 501.5200, L500.4050, L503.0105, L501.9520, L100.0100 ####[facility] [address] [place], [address] Albumin/Globulin [Mass ratio] 1.0 {ratio} Normal 0.9-2.4 [facility] Comment on above: Order Comment: Order Date: 10/18/23Order Info: 785-1 - CMPOrder Info: - MGOrder Info: [id number] - TSH Performed By: #### L 501.5200, L500.4050, L503.0105, L501.9520, L100.0100 ####[facility] [address] [place], [address] ALK P 62 U/L Normal 45-117 [facility] Comment on above: Order Comment: Order Date: 10/18/23Order Info: [id number] - CMPOrder Info: - MGOrder Info: [id number] - TSH Performed By: #### L 501.5200, L500.4050, L503.0105, L501.9520, L100.0100 ####[facility] [address] [place], [address] ALT [Catalytic activity/Vol] 24 U/L Normal 13-56 [facility] Comment on above: Order Comment: Order Date: 10/18/23Order Info: [id number] - CMPOrder Info: - MGOrder Info: [id number] - TSH Performed By: #### L 501.5200, L500.4050, L503.0105, L501.9520, L100.0100 ####[facility] [address] [place], [address] AST [Catalytic activity/Vol] 19 U/L Normal 15-37 [facility] Comment on above: Order Comment: Order Date: 10/18/23Order Info: 07-1 - CMPOrder Info: - MGOrder Info: 3 - TSH Performed By: #### L 501.5200, L500.4050, L503.0105, L501.9520, L100.0100 ####[facility] [address] [place], [address] Bilirubin [Mass/Vol] 0.30 mg/dL Normal 0.20-1.00 [facility] Comment on above: Order Comment: Order Date: 10/18/23Order Info: 0786-1 - CMPOrder Info: [id number] - MGOrder Info: 3015-3 - TSH Result Comment: For patients on eltrombopag therapy, use of Dimension Curtis TBIL is not recommended. Performed By: #### L 501.5200, L500.4050, L503.0105, L501.9520, L100.0100 ####[facility] [address] [place], [address] BUN/CRE 19.9 RATIO Normal 10-20 [facility] Comment on above: Order Comment: Order Date: 10/18/23Order Info: 07 - CMPOrder Info: [id number] - MGOrder Info: 3015-3 - TSH Performed By: #### L 501.5200, L500.4050, L503.0105, L501.9520, L100.0100 ####[facility] [address] [place], [place], [address] CA,Total 8.8 mg/dL Normal 8.5-10.1 [facility] Comment on above: Order Comment: Order Date: 10/18/23Order Info: 0786- - CMPOrder Info: [id number] - MGOrder Info: 3015-3 - TSH Performed By: #### L 501.5200, L500.4050, L503.0105, L501.9520, L100.0100 ####[facility] [address] [place], [address] Chloride [Moles/Vol] 108 mmol/L High 98-107 [facility] Comment on above: Order Comment: Order Date: 10/18/23Order Info: [id number] - CMPOrder Info: [id number] - MGOrder Info: 6-3 - TSH Performed By: #### L 501.5200, L500.4050, L503.0105, L501.9520, L100.0100 ####[facility] [address] [place], [address] CO2 [Moles/Vol] 27.0 mmol/L Normal 21.0-32.0 [facility] Comment on above: Order Comment: Order Date: 10/18/23Order Info: 0786-1 - CMPOrder Info: [id number] - MGOrder Info: 3016-3 - TSH Performed By: #### L 501.5200, L500.4050, L503.0105, L501.9520, L100.0100 ####[facility] [address] [place], [address] Creatinine [Mass/Vol] 0.55 mg/dL Normal 0.55-1.02 [facility] Comment on above: Order Comment: Order Date: 10/18/23Order Info: 785-1 - CMPOrder Info: [id number] - MGOrder Info: 3016-3 - TSH Result Comment: The validity of the calculated GFR GFRAA in patients over 70 years has not been determined. Clinical correlation is essential. Performed By: #### L 501.5200, L500.4050, L503.0105, L501.9520, L100.0100 ####[facility] [address] [place], [address] EST GFR - AA 157 mL/min Normal >60 [facility] Comment on above: Order Comment: Order Date: 10/18/23Order Info: 0786-1 - CMPOrder Info: [id number] - MGOrder Info: 3016-3 - TSH Result Comment: Afri can [place] GFR Calc Performed By: #### L 501.5200, L500.4050, L503.0105, L501.9520, L100.0100 ####[facility] [address] [place], [address] GAP 5 Normal 5-15 [facility] Comment on above: Order Comment: Order Date: 10/18/23Order Info: 0786-1 - CMPOrder Info: [id number] - MGOrder Info: 3 - TSH Performed By: #### L 501.5200, L500.4050, L503.0105, L501.9520, L100.0100 ####[facility] [address] [place], [address] GFR/1.73 sq M.predicted among non-blacks MDRD (S/P/Bld) [Vol rate/Area] 130 mL/min/{1.73_m2} Normal >60 [facility] Comment on above: Order Comment: Order Date: 10/18/23Order Info: 07-1 - CMPOrder Info: - MGOrder Info: 3 - TSH Result Comment: Non- GFR Calc Performed By: #### L 501.5200, L500.4050, L503.0105, L501.9520, L100.0100 ####[facility] [address] [place], [address] Globulin (S) [Mass/Vol] 3.4 g/dL Normal 2.2-4.2 [facility] Comment on above: Order Comment: Order Date: 10/18/23Order Info: 0786 - CMPOrder Info: - MGOrder Info: 3 - TSH Performed By: #### L 501.5200, L500.4050, L503.0105, L501.9520, L100.0100 ####[facility] [address] [place], [address] Glucose [Mass/Vol] 99 mg/dL Normal 74-106 [facility] Comment on above: Order Comment: Order Date: 10/18/23Order Info: [id number] - CMPOrder Info: - MGOrder Info: 3 - TSH Performed By: #### L 501.5200, L500.4050, L503.0105, L501.9520, L100.0100 ####[facility] [address] [place], [address] Potassium [Moles/Vol] 4.1 mmol/L Normal 3.5-5.1 [facility] Comment on above: Order Comment: Order Date: 10/18/23Order Info: 0786-1 - CMPOrder Info: [id number] - MGOrder Info: 3015-3 - TSH Performed By: #### L 501.5200, L500.4050, L503.0105, L501.9520, L100.0100 ####[facility] [address] [place], [address] Sodium [Moles/Vol] 140 mmol/L Normal 136-145 [facility] Comment on above: Order Comment: Order Date: 10/18/23Order Info: 07 - CMPOrder Info: - MGOrder Info: 3 - TSH Performed By: #### L 501.5200, L500.4050, L503.0105, L501.9520, L100.0100 ####[facility] [address] [place], [address] T PROT 6.7 g/dL Normal 6.4-8.2 [facility] Comment on above: Order Comment: Order Date: 10/18/23Order Info: 0786- - CMPOrder Info: - MGOrder Info: [id number] - TSH Performed By: #### L 501.5200, L500.4050, L503.0105, L501.9520, L100.0100 ####[facility] [address] [place], [address] Urea nitrogen [Mass/Vol] 11 mg/dL Normal 7-18 [facility] Comment on above: Order Comment: Order Date: 10/18/23Order Info: 07- - CMPOrder Info: - MGOrder Info: [id number] - TSH Performed By: #### L 501.5200, L500.4050, L503.0105, L501.9520, L100.0100 ####[facility] [address] [place], [address] Determination of erythrocyte mean corpuscular volume (MCV)Ordered By: Vanessa Ragland on 10-19-2023 MCV (RBC) [Entitic vol] 89.8 fL 81-99 [facility] Erythrocyte distribution wid th ratioOrdered By: Vanessa Ragland on 10-19-2023 Erythrocyte distribution width (RBC) [Ratio] 12.9 % 11.6-14.6 [facility] Erythrocyte distribution wid th standard deviationOrdered By: Vanessa Ragland on 10-19-2023 Erythrocyte distribution width (RBC) [Entitic vol] 42.5 fL 35.1-43.9 [facility] Hematocrit Auto (Bld) [Volum e fraction]Ordered By: Vanessa Ragland on 10-19-2023 Hematocrit (Bld) [Volume fraction] 37.7 % 37-47 [facility] Immature granulocytes/100 WB C Auto (Bld)Ordered By: Vanessa Ragland on 10-19-2023 Immature granulocytes/100 WBC (Bld) 0.200 % 0.0-0.9 [facility] Comment on above: IG% - Immature Granu locytes (promyelocytes, myelocytes and metamyelocytes) > 1% indicates that a LEFT SHIFT is Present. Laboratory - Chemistry and C hemistry - challengeOrdered By: Vanessa Ragland on 10-19-2023 Albumin/Globulin [Mass ratio] 1.0 {ratio} 0.9-2.4 [facility] ALP [Catalytic activity/Vol] 62 U/L 45-117 [facility] ALT [Catalytic activity/Vol] 24 U/L 13-56 [facility] CO2 [Moles/Vol] 27.0 mmol/L 21.0-32.0 [facility] Cobalamin (Vitamin B12) [Mass/Vol] 263 pg/mL 211-911 [facility] Globulin (S) [Mass/Vol] 3.4 g/dL 2.2-4.2 [facility] Magnesium [Mass/Vol] 1.9 mg/dL 1.6-2.6 [facility] Urea nitrogen/Creatinine [Mass ratio] 19.9 mg/mg 10-20 [facility] Laboratory - Hematology and Cell countsOrdered By: Vanessa Ragland on 10-19-2023 MCH (RBC) [Entitic mass] 30.0 pg 27.0-32.0 [facility] MCHC (RBC) [Mass/Vol] 33.4 g/dL 32-36 [facility] Nucleated RBC/100 WBC (Bld) [Ratio] 0 % 0-5 [facility] Platelet mean volume (Bld) [Entitic vol] 9.3 fL 6.2-12.0 [facility] Platelets (Bld) [#/Vol] 342 10*3/uL 150-450 [facility] Magnesiumon 10-19-2023 Magnesium [Mass/Vol] 1.9 mg/dL Normal 1.6-2.6 [facility] Comment on above: Order Comment: Order Date: 10/18/23Order Info: [id number] - CMPOrder Info: [id number] - MGOrder Info: [id number] - TSH Performed By: #### L 501.5200, L500.4050, L503.0105, L501.9520, L100.0100 ####[facility] [address], [place], [id number] No Panel InformationOrdered By: Vanessa Ragland on 10-19-2023 Estimated GFR (MDRD) Amer 157 mL/min >60 [facility] Comment on above: GFR Calc Estimated GFR (MDRD) Non-Af Amer 130 mL/min >60 [facility] Comment on above: Non- GFR Calc RBC Auto (Bld) [#/Vol]Ordere d By: Vanessa Ragland on 10-19-2023 RBC (Bld) [#/Vol] 4.20 10*6/uL 4.2-5.4 [facility] Serum or plasma calcium amanda urement (mass/volume)Ordered By: Vanessa Ragland on 10-19-2023 Calcium [Mass/Vol] 8.8 mg/dL 8.5-10.1 [facility] Serum or plasma creatinine m easurement (mass/volume)Ordered By: Vanessa Ragland on 10-19-2023 Creatinine [Mass/Vol] 0.55 mg/dL 0.55-1.02 [facility] Comment on above: The validity of the calculated GFR & GFRAA in patients over 70 years has not been determined. Clinical correlation is essential. Serum or plasma thyroid stim ulating hormone (TSH) measurement (units/volume)Ordered By: Vanessa Ragland on 10-19-2023 TSH Qn 1.43 uIU/mL 0.358-3.74 [facility] Serum or plasma urea nitroge n measurement (mass/volume)Ordered By: Vanessa Ragland on 10-19-2023 Urea nitrogen [Mass/Vol] 11 mg/dL 7-18 [facility] Thin prep Papanicolaou smear with manual screeningOrdered By: Vanessa Ragland on 10-19-2023 Thin prep Papanicolaou smear with manual screening 3.3 g/dL 3.2-5.0 [facility] Thin prep Papanicolaou smear with manual screening 19 U/L 15-37 [facility] Thin prep Papanicolaou smear with manual screening 5 5-15 [facility] Thyroid Stim Hormone (TSH)on 10-19-2023 TSH 1.43 uIU/mL Normal 0.358-3.74 [facility] Comment on above: Order Comment: Order Date: 10/18/23Order Info: [id number] - CMPOrder Info: [id number] - MGOrder Info: [id number] - TSH Performed By: #### L 501.5200, L500.4050, L503.0105, L501.9520, L100.0100 ####[facility] [address] [facility] [place], [address] Vitamin B12on 10-19-2023 Cobalamin (Vitamin B12) [Mass/Vol] 263 pg/mL Normal 211-911 [facility] Comment on above: Order Comment: Order Date: 10/18/23Order Info: [id number] - B12 Performed By: #### L 501.5200, L500.4050, L503.0105, L501.9520, L100.0100 ####[facility] [address] [facility] [place], [address] Absolute lymphocyte countOrd ered By: Silva Jaime on 08-15-2023 Lymphocytes Auto (Unsp spec) [#/Vol] 2.24 10*3/uL 0.83-4.51 [facility] Automated lymphocyte count a s percentage of total leukocytesOrdered By: Silva Jaime on 08-15-2023 Lymphocytes/100 WBC Auto (Unsp spec) 25.7 % 19-41 [facility] Basophil percentageOrdered B y: Silva Jaime on 08-15-2023 Basophils/100 WBC (Bld) 0.8 % 0-1 [facility] Bilirubin [Mass/Vol] 0.50 mg/dL 0.20-1.00 [facility] Comment on above: For patients on eltr ombopag therapy, use of Dimension Curtis TBIL is not recommended. Chloride [Moles/Vol] 106 mmol/L 98-107 [facility] Cholesterol [Mass/Vol] 198 mg/dL <200 [facility] Comment on above: <200 mg/dL Desirable 200-240 mg/dL Borderline >240 mg/dL High Risk Eosinophils/100 WBC (Bld) 0.9 % 0-5 [facility] Glucose [Mass/Vol] 91 mg/dL 74-106 [facility] Hemoglobin (Bld) [Mass/Vol] 13.3 g/dL 12.0-15.0 [facility] Monocytes/100 WBC (Bld) 7.7 % 0-10 [facility] Neutrophils (Bld) [#/Vol] 5.6 10*3/uL 2.0-7.7 [facility] Neutrophils/100 WBC (Bld) 64.4 % 47-70 [facility] Potassium [Moles/Vol] 4.0 mmol/L 3.5-5.1 [facility] Protein [Mass/Vol] 7.2 g/dL 6.4-8.2 [facility] Sodium [Moles/Vol] 136 mmol/L 136-145 [facility] Triglyceride [Mass/Vol] 80 mg/dL <199 [facility] Comment on above: The drugs N-Acetylcy steine and Metamizole may falsely depress this assay.Serum Triglycerides Reference Interval Normal <150 mg/dL Borderline high 150 - 199 mg/dL High 200 - 499 mg/dL Very High > or = 500 mg/dL WBC (Bld) [#/Vol] 8.7 10*3/uL 4.4-11.0 [facility] Determination of erythrocyte mean corpuscular volume (MCV)Ordered By: Silva Jaime on 08-15-2023 MCV (RBC) [Entitic vol] 89.8 fL 81-99 [facility] [place] Erythrocyte distribution wid th ratioOrdered By: [facility] on 08-[facility] Erythrocyte distribution width (RBC) [Ratio] 12.6 % 11.6-14.6 [facility] Erythrocyte distribution wid th standard deviationOrdered By: [facility] on 08-15-2023 Erythrocyte distribution width (RBC) [Entitic vol] 41.5 fL 35.1-43.9 [facility] Hematocrit Auto (Bld) [Volum e fraction]Ordered By: [facility] on 08-15-2023 Hematocrit (Bld) [Volume fraction] 41.5 % 37-47 [facility] High density lipoprotein (HD L) measurementOrdered By: [facility] on 08-15-2023 Cholesterol in HDL (Body fld) [Mass/Vol] 48 mg/dL >40 [facility] Comment on above: The drugs N-Acetylcy steine and Metamizole may falsely depress this assay. Reference Range HDL <40 mg/dL Low HDL Cholesterol HDL >or= 60 mg/dL High HDL Cholesterol Immature granulocytes/100 WB C Auto (Bld)Ordered By: [facility] on 08-15-2023 Immature granulocytes/100 WBC (Bld) 0.500 % 0.0-0.9 [facility] Comment on above: IG% - Immature Granu locytes (promyelocytes, myelocytes and metamyelocytes) > 1% indicates that a LEFT SHIFT is Present. Laboratory - Chemistry and C hemistry - challengeOrdered By: [facility] on 08-15-2023 Albumin/Globulin [Mass ratio] 0.9 {ratio} 0.9-2.4 [facility] ALP [Catalytic activity/Vol] 65 U/L 45-117 [facility] ALT [Catalytic activity/Vol] 25 U/L 13-56 [facility] CO2 [Moles/Vol] 25.0 mmol/L 21.0-32.0 [facility] Globulin (S) [Mass/Vol] 3.7 g/dL 2.2-4.2 [facility] Urea nitrogen/Creatinine [Mass ratio] 22.7 mg/mg 10-20 [facility] Laboratory - Hematology and Cell countsOrdered By: Silva Jaime on 08-15-2023 MCH (RBC) [Entitic mass] 28.8 pg 27.0-32.0 [facility] MCHC (RBC) [Mass/Vol] 32.0 g/dL 32-36 [facility] Nucleated RBC/100 WBC (Bld) [Ratio] 0 % 0-5 [facility] Platelets (Bld) [#/Vol] 339 10*3/uL 150-450 [facility] Low density lipoprotein (LDL ) cholesterol measurementOrdered By: Silva Jaime on 08-15-2023 Cholesterol in LDL (Body fld) [Moles/Vol] 134 mg/dL 0-130 [facility] No Panel InformationOrdered By: Silva Jaime on 08-15-2023 Estimated GFR (MDRD) Amer 166 mL/min >60 [facility] Comment on above: GFR Calc Estimated GFR (MDRD) Non-Af Amer 137 mL/min >60 [facility] Comment on above: Non- GFR Calc Vitamin D 25-Hydroxy 19.6 ng/mL [facility] Comment on above: Vitamin D 25(OH) Sta tus Range Deficiency <20 ng/mL (50nmol/L) Insufficiency 20 - 30 ng/mL (50 - 75 nmol/L) Sufficiency 30 - 100 ng/mL (75 - 250 nmol/L) Toxicity >100 ng/mL (>250 nmol/L) Platelet mean volume Danis-Ec ker (Bld) [Entitic vol]Ordered By: Silva Jaime on 08-15-2023 Platelet mean volume (Bld) [Entitic vol] 9.8 fL 6.2-12.0 [facility] RBC Auto (Bld) [#/Vol]Ordere d By: Silva Jaime on 08-15-2023 RBC (Bld) [#/Vol] 4.62 10*6/uL 4.2-5.4 [facility] Serum or plasma calcium amanda urement (mass/volume)Ordered By: Silva Jaime on 08-15-2023 Calcium [Mass/Vol] 9.1 mg/dL 8.5-10.1 [facility] Serum or plasma creatinine m easurement (mass/volume)Ordered By: Silva Jaime on 08-15-2023 Creatinine [Mass/Vol] 0.53 mg/dL 0.55-1.02 [facility] Comment on above: The validity of the calculated GFR & GFRAA in patients over 70 years has not been determined. Clinical correlation is essential. Serum or plasma thyroid stim ulating hormone (TSH) measurement (units/volume)Ordered By: Silva Jaime on 08-15-2023 TSH Qn 2.25 uIU/mL 0.358-3.74 [facility] Serum or plasma urea nitroge n measurement (mass/volume)Ordered By: Silva Jaime on 08-15-2023 Urea nitrogen [Mass/Vol] 12 mg/dL 7-18 [facility] Thin prep Papanicolaou smear with manual screeningOrdered By: Silva Jaime on 08-15-2023 Thin prep Papanicolaou smear with manual screening 3.5 g/dL 3.2-5.0 [facility] Thin prep Papanicolaou smear with manual screening 15 U/L 15-37 [facility] Thin prep Papanicolaou smear with manual screening 5 5-15 [facility] Very low density lipoprotein (VLDL) cholesterol measurementOrdered By: Silva Jaime on 08-15-2023 Cholesterol in VLDL Calc [Moles/Vol] 16 mg/dL 5-40 [facility] Vital Signs Date Time Vital Sign Value Performing Clinician Facility 02-04-2025 11:08-0400 Body height 165.1 cm Silva Jaime MD Work Phone: [facility] 02-04-2025 11:08-0400 Body temperature 97.6 [degF] Silva Jaime MD Work Phone: [facility] 02-04-2025 11:08-0400 Diastolic blood pressure 86 mm[Hg] Silva Jaime MD Work Phone: [facility] 02-04-2025 11:08-0400 Heart rate 59 /min Silva Jaime MD Work Phone: [facility] 02-04-2025 11:08-0400 Respiratory rate 16 /min Silva Jaime MD Work Phone: [facility] 02-04-2025 11:08-0400 SaO2% (BldA) [Mass fraction] 100 % Silva Jaime MD Work Phone: [facility] 02-04-2025 11:08-0400 Systolic blood pressure 130 mm[Hg] Silva Jaime MD Work Phone: [facility] 01-27-2025 09:24-0400 Body height 165.1 cm Lexx Enamorado APRN.WHEEL POLISHER Work Phone: [facility] 01-27-2025 09:24-0400 Body mass index (BMI) [Ratio] 37.61 kg/m2 Lexx Enamorado APRN.WHEEL POLISHER Work Phone: [facility] 01-27-2025 09:24-0400 Body weight 102.51 kg Lexx Enamorado APRN.WHEEL POLISHER Work Phone: [facility] 01-27-2025 09:24-0400 Diastolic blood pressure 60 mm[Hg] Lexx Enamorado APRN.WHEEL POLISHER Work Phone: [facility] 01-27-2025 09:24-0400 Systolic blood pressure 120 mm[Hg] Lexx Enamorado APRN.WHEEL POLISHER Work Phone: [facility] 12-23-2024 16:02-0400 Body mass index (BMI) [Ratio] 37.35 kg/m2 Cj Bright APRN.WHEEL POLISHER Work Phone: [facility] 12-23-2024 16:02-0400 Body temperature 99.1 [degF] Cj Bright APRN.WHEEL POLISHER Work Phone: [facility] 12-23-2024 16:02-0400 Body weight 101.7 kg Cj Bright APRN.WHEEL POLISHER Work Phone: [facility] 12-23-2024 16:02-0400 Diastolic blood pressure 78 mm[Hg] Cj Bright APRN.WHEEL POLISHER Work Phone: [facility] 12-23-2024 16:02-0400 Heart rate 91 /min Cj Bright APRN.WHEEL POLISHER Work Phone: [facility] 12-23-2024 16:02-0400 Respiratory rate 18 /min Cj Bright APRN.WHEEL POLISHER Work Phone: [facility] 12-23-2024 16:02-0400 SaO2% (BldA) [Mass fraction] 97 % Cj Bright APRN.WHEEL POLISHER Work Phone: [facility] 12-23-2024 16:02-0400 Systolic blood pressure 118 mm[Hg] Cj Bright APRN.WHEEL POLISHER Work Phone: [facility] 10-02-2024 18:35-0400 Body mass index (BMI) [Ratio] 37.24 kg/m2 Cj Bright APRN.WHEEL POLISHER Work Phone: [facility] 10-02-2024 18:35-0400 Body temperature 98.71 [degF] Cj Bright APRN.WHEEL POLISHER Work Phone: [facility] 10-02-2024 18:35-0400 Body weight 101.4 kg Cj Bright APRN.WHEEL POLISHER Work Phone: [facility] 10-02-2024 18:35-0400 Diastolic blood pressure 82 mm[Hg] Cj Bright APRN.WHEEL POLISHER Work Phone: [facility] 10-02-2024 18:35-0400 Heart rate 90 /min Cj Bright APRN.WHEEL POLISHER Work Phone: [facility] 10-02-2024 18:35-0400 Respiratory rate 18 /min Cj Bright APRN.WHEEL POLISHER Work Phone: [facility] 10-02-2024 18:35-0400 SaO2% (BldA) [Mass fraction] 98 % Cj Bright APRN.WHEEL POLISHER Work Phone: [facility] 10-02-2024 18:35-0400 Systolic blood pressure 118 mm[Hg] Cj Bright APRN.CNP Work Phone: [facility] 10-22-2023 21:20-0400 Body temperature 96.8 [degF] MD Silva Jaime Work Phone: [facility] 10-22-2023 21:20-0400 Diastolic blood pressure 82 mm[Hg] MD Silva Jaime Work Phone: [facility] 10-22-2023 21:20-0400 Heart rate 86 /min MD Silva Jaime Work Phone: [facility] 10-22-2023 21:20-0400 Respiratory rate 14 /min MD Silva Jaime Work Phone: [facility] 10-22-2023 21:20-0400 SaO2% (BldA) [Mass fraction] 100 % MD Silva Jaime Work Phone: [facility] 10-22-2023 21:20-0400 Systolic blood pressure 163 mm[Hg] MD Silva Jaime Work Phone: [facility] 10-22-2023 20:16-0400 Body height 165.1 cm MD Silva Jaime Work Phone: [facility] 10-22-2023 20:16-0400 Body mass index (BMI) [Ratio] 39 kg/m2 MD Silva Jaime Work Phone: [facility] 10-22-2023 20:16-0400 Body weight 106.41 kg MD Silva Jaime Work Phone: [facility] 09-08-2023 10:09-0500 Body mass index (BMI) [Ratio] 39.1 kg/m2 MD Silva Jaime Work Phone: [facility] 09-08-2023 10:09-0500 Body weight 106.59 kg MD Silva Jaime Work Phone: [facility] 09-08-2023 10:09-0500 Diastolic blood pressure 85 mm[Hg] MD Silva Jaime Work Phone: [facility] 09-08-2023 10:09-0500 Respiratory rate 18 /min MD Silva Jaime Work Phone: [facility] 09-08-2023 10:09-0500 Systolic blood pressure 121 mm[Hg] MD Silva Jaime Work Phone: [facility] 08-26-2023 19:14-0500 Body height 165.1 cm [facility] 08-26-2023 19:14-0500 Body mass index (BMI) [Ratio] 38.2 kg/m2 [facility] 08-26-2023 19:14-0500 Body temperature 98.1 [degF] [facility] 08-26-2023 19:14-0500 Body weight 104.32 kg [facility] 08-26-2023 19:14-0500 Diastolic blood pressure 126 mm[Hg] [facility] 08-26-2023 19:14-0500 Heart rate 95 /min [facility] 08-26-2023 19:14-0500 Respiratory rate 16 /min [facility] 08-26-2023 19:14-0500 SaO2% (BldA) [Mass fraction] 98 % [facility] 08-26-2023 19:14-0500 Systolic blood pressure 170 mm[Hg] [facility] Encounters Encounter Date Encounter Type Care Provider Facility Start: 02-04-2025 End: 02-04-2025 Emergency department patient visit Silva Jaime MD Work Phone: -Emergency Department Work Phone: Start: 01-29-2025 End: 01-29-2025 Telephone encounter Lexx Enamorado APRN.CNP Work Phone: OB/Gynecology Comment on above: Results Start: 01-27-2025 End: 01-27-2025 Patient encounter procedure Lexx Enamorado APRN.CNP Work Phone: OB/Gynecology Comment on above: Encounter for gyneco logical examination with abnormal finding (Primary Dx); Screening for cervical cancer; Encounter for screening for human papillomavirus (HPV); Encounter for screening mammogram for breast cancer; Screen for STD (sexually transmitted disease); Abnormal uterine bleeding; Family history of ovarian cancer; Encounter for vitamin deficiency screening Start: 01-27-2025 End: 01-27-2025 Patient encounter status Lexx Kelsea ANNWHEEL POLISHER Work Phone: [facility] Start: 01-27-2025 End: 01-27-2025 ambulatory LEXX ENAMORADO Facility:[facility] Start: 01-27-2025 Encounter for gynecological examination (general) (routine) with abnormal findings LEXX ENAMORADO [facility] Start: 12-23-2024 End: 12-23-2024 Patient encounter procedure Cj Bright APRN.WHEEL POLISHER Work Phone: [facility] Comment on above: Nausea (Primary Dx); Nausea and vomiting, unspecified vomiting type Start: 12-23-2024 End: 12-23-2024 ambulatory CJ BRIGHT Facility:[facility] Start: 10-02-2024 End: 10-02-2024 ambulatory LEXX ENAMORADO Facility:[facility] Start: 10-02-2024 End: 10-02-2024 Patient encounter procedure Cj Bright APRN.WHEEL POLISHER Work Phone: [facility] Comment on above: Sore throat (Primary Dx); Rhinosinusitis Start: 09-26-2024 End: 09-26-2024 Emergency department patient visit Jett Brooks Facility:[facility] Start: 08-27-2024 ambulatory Lynnette Salomon [facility] [place] Start: 08-22-2024 ambulatory Lynnette Salmoon Facili ty:[facility] Start: 07-22-2024 End: 07-23-2024 ambulatory Lynnette Salomon Facility:[facility] Start: 05-24-2024 End: 05-24-2024 ambulatory Lynnette Salomon [facility] Start: 05-20-2024 End: 05-20-2024 ambulatory Silva Jaime Facility:[facility] Start: 05-13-2024 End: 05-13-2024 ambulatory Silva Addison Facility:[facility] Start: 04-16-2024 End: 04-17-2024 ambulatory [facility] Facility:[facility] Start: 04-16-2024 End: 04-16-2024 ambulatory [facility] Facility:[facility] Start: 04-08-2024 End: 04-09-2024 Emergency department patient visit Raudel Colunga Facility:[facility] Start: 10-22-2023 End: 10-22-2023 Emergency department patient visit MD Silva Jaime Work Phone: [facility]Emer[facility] Work Phone: Start: 10-19-2023 End: 10-19-2023 ambulatory MD Silva Jaime Work Phone: [facility] Work Phone: Start: 10-19-2023 End: 10-19-2023 Patient encounter procedure MD Silva Jaime Work Phone: [facility] Work Phone: Start: 10-19-2023 End: 10-19-2023 ambulatory Vanessa Ragland Facility:[facility] Start: 09-08-2023 End: 09-08-2023 Patient encounter procedure MD Silva Jaime Work Phone: [facility] Work Phone: Start: 08-26-2023 End: 08-26-2023 Emergency department patient visit [facility] Work Phone: Start: 08-15-2023 End: 08-15-2023 ambulatory [facility] Work Phone: Start: 08-15-2023 End: 08-15-2023 Patient encounter procedure [facility] Work Phone: Start: 01-21-2010 End: 09-07-2011 Patient encounter status Cj Bright APRN.[facility] Work Phone: [facility] Work Phone: Procedures Date Procedure Procedure Detail Performing Clinician Start: 02-04-2025 X-ray of lumbar spin e, two or three views Silva Jaime MD Work Phone: Start: 10-02-2024 STREP A MOLECULAR (POC) Cj Bright APRN.WHEEL POLISHER Work Phone: Start: 08-26-2023 X-ray of lumbar spin e, two or three views Start: 01-27-2012 End: 03-30-2012 H/O: section Previous section Cj Bright APRN.WHEEL POLISHER Work Phone: Plan of Treatment Date Care Activity Detail Author Start: 04-02-2034 Urine microalbumin profile DTaP,Tdap,Td Vaccine (2 - Td or Tdap) [facility] Start: 01-28-2026 End: 01-28-2026 Patient encounter procedure 01/28/2026 7:15 AM EDT Office Visit OB/Gynecology [address] [place] [id number] Lexx 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 [address] Annual OB/Gynecology Comment on above: Annual Start: 03-24-2025 Influenza vaccination [facility] Start: 03-18-2025 End: 03-18-2025 Patient encounter procedure 03/18/2025 7:10 AM EDT Appointment Mammogram [address] [place] [address] : Encounter for screening mammogram for breast cancer [Z12.31 Mammogram Comment on above: : Encounter for scre ening mammogram for breast cancer [Z12.31 Start: 02-04-2025 [facility] Start: 01-31-2025 End: 01-31-2025 ambulatory 01/31/2025 3:30 PM EDT Procedure OB/Gynecology [address] [place] [address] [facility] [address] [place] [address] : Abnormal uterine bleeding [N93.9] OB/Gynecology Comment on above: : Abnormal uterine b leeding [N93.9] Start: 01-27-2025 End: 04-28-2025 Hemoglobin A1c in Blood [facility] Comment on above: Expected: 01/27/2025 , Expires: 04/28/2025 Start: 01-27-2025 End: 01-27-2026 US Pelvis PELVIC US [facility] Imaging Routine Abnormal uterine bleeding Expected: 01/27/2025, Expires: 01/27/2026 [facility] Comment on above: Expected: 01/27/2025 , Expires: 01/27/2026 Start: 03-24-2024 Covid-19 Vaccine ( season) Covid-19 Vaccine () [facility] Start: 03-24-2024 Influenza vaccination Influenza Vacc ine (#1) [facility] Start: 10-22-2023 [facility] Start: 09-08-2023 Patient referral [facility] Work Phone: Start: 08-26-2023 [facility] Start: 08-20-2019 Screening for malign ant neoplasm of cervix Cervical Cancer Screening [facility] Start: 2004 Hepatitis B Vaccine (1 of 3 - 19+ 3-dose series) Hepatitis B Vaccine (1 of 3 - 19+ 3-dose series) [facility] Start: 2004 Pneumococcal vaccination Pneumococcal Vaccine (1 of 2 - PCV) [facility] Chlamydia trachomatis+Neisseria gonorrhoeae DNA [Presence] in Unspecified specimen by OMAIRA with probe detection GONORRHEA/CHLAMYDIA NAAT Lab Routine Screen for STD (sexually transmitted disease) 01/27/2025 10:08 AM EDT [facility] End: 02-26-2026 DBT Breast - bilateral screening [facility]IT[facility] SCREENING [facility] Radiology Routine Encounter for screening mammogram for breast cancer 1 Occurrences starting 01/27/2025 until 02/26/[address] [facility] Work Phone: Comment on above: 1 Occurrences starti ng 01/27/2025 until 02/26/2026 PAP TEST PAP TEST Lab Denys olivas Encounter for gynecological examination with abnormal finding Screening for cervical cancer Encounter for screening for human papillomavirus (HPV) 01/27/2025 10:08 AM EDT [facility] Patient Education [facility] Work Phone: Patient referral [facility] Work Phone: TRICHOMONAS VAGINALI S NAAT TRICHOMONAS VAGINALIS NAAT Lab Routine Screen for STD (sexually transmitted disease) 01/27/2025 10:08 AM EDT [facility] Immunizations Immunization Date Immunization Notes Care Provider Fa warren 04-02-2024 tetanus toxoid, redu netta diphtheria toxoid, and acellular pertussis vaccine, adsorbed Lexx Lenshakira 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 2011 Unknown [id number] Unknown [id number] Unknown [id number] Unknown [id number] Unknown [id number] Unknown [id number] Unknown [id number] Unknown [id number] Unknown [id number] Unknown [id number] Unknown [id number] Unknown [id number] Unknown [id number] Unknown [id number] Unknown [id number] Social History Date Type Detail Facility Start: 10-19-2015 End: 10-22-2023 Tobacco smoking status [facility] Unknown if ever smoked [facility] Start: 1985 Sex Assigned At Female [facility] Start: 08-20-2014 End: 02-04-2025 Tobacco smoking status FLIS Smokes tobacco daily [facility] History of tobacco use Cigarette Smoker [facility] Start: 08-20-2014 End: 01-27-2025 Cigarettes smoked current (pack per day) - Reported 0.5 [facility] Start: 08-20-2014 End: 01-27-2025 Tobacco use and exposure Smokeless tobacco non-user [facility] Start: 10-02-2024 End: 01-27-2025 Alcoholic beverage intake Current non-drinker of alcohol (finding) [facility] Start: 10-02-2024 End: 01-27-2025 Tobacco use panel [facility] Work Phone: National Score (1-10 0), lower number is lower risk 70 [facility] Start: 1985 Sex assigned at Not on file [facility] Functional Status Date Assessment Result Facility 08-20-2014 Are you deaf, or do you have serious difficulty hearing No 08/20/2014 2:46 PM EST Perla Echols MA No [facility] 08-20-2014 Are you blind, or do you have serious difficulty seeing, even when wearing glasses No 08/20/2014 2:46 PM EST Perla Echols MA [facility] 08-20-2014 Do you have serious difficulty walking or climbing stairs No 08/20/2014 2:46 PM EST Perla Echols MA [facility] 08-20-2014 Do you have difficul ty dressing or bathing No 08/20/2014 2:46 PM EST Medina EcholsaARLYN [facility] 08-20-2014 Because of a physica l, mental, or emotional condition, do you have difficulty doing errands alone such as visiting a physician's office or shopping No 08/20/2014 2:46 PM EST Medina Echolsa [facility] Mental Status Date Assessment Result Facility 08-20-2014 Because of a physica l, mental, or emotional condition, do you have serious difficulty concentrating, remembering, or making decisions No 08/20/2014 2:46 PM EST Perla Echols [facility] Clinical Notes 10-22-2023 to 02-04-2025 Telephone Encounter - Lynnette Hayes RN - 01/29/2025 9:58 AM EDTTelephone Encounter - Lynnette Hayes RN - 01/29/2025 9:58 AM EDTTelephone Encounter - Charlene Ledesma RN - 01/29/2025 9:52 AM EDT Note Date & Type Note Facility 02-04-2025 Radiology Diagnostic study note [facility] Services [address] [place] [address] [id number] Lumbar Spine 2 or 3 Views MR#: [id number] Acct: [id number] Name: GENEVIEVE BELLO Rep #: [id number] : 1985 F 39 From: Humaiar Feliciano MD PCP: Dr. Silva Jaime MD Status: REG ER Study:Lumbar Spine 2 or 3 Views Date of Exam: 02/04/25 Exam# [id number] Ordering Dr: Thomas Feliciano DO EXAM: XR Lumbosacral Spine, 2 or 3 Views CLINICAL INDICATION: PAIN TECHNIQUE: Frontal and lateral views of the lumbar spine and sacrum. COMPARISON: No relevant prior studies available. FINDINGS: VERTEBRAE: Unremarkable. No acute fracture. Normal alignment. SACRUM/COCCYX: Unremarkable as visualized. No acute fracture. DISC SPACES: No acute findings. No significant narrowing. SOFT TISSUES: Unremarkable. RAD/Lumbar Spine 2 or 3 Views IMPRESSION: No acute fracture. Reading Location: [facility] CC: Dr. Silva Jaime MD; Dr. Thomas Feliciano, DO ~ Property Analyst: Signed [facility] 01-29-2025 Telephone encounter Note Patient notified of results, verbalizes understanding of instructions. Lynnette Hayes RN [facility] 01-29-2025 Miscellaneous Notes Patient notified of results, verbalizes understanding of instructions. Lynnette Hayes RN Left message for patient to call office. Charlene Ledesma RN Lexx Enamorado APRN.CNP routed this conversation to [facility] 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 Pool (Selected Message) Lexx Enamorado APRN.CNP 01/29/25 7:09 AM Note Please notify patient: Deficient in Vitamin D. Recommend [phone] international unit(s) per day. Hemoglobin A1C borderline prediabetic. I recommend decreasing carb and sugar intake. Continue to plan for ultrasound Lexx Enamorado APRN.CNP documented in this encounter [facility] 01-29-2025 Telephone encounter Note Left message for patient to call office. Charlene Ledesma RN [facility] 01-29-2025 Telephone encounter Note Lexx Enamorado APRN.CNP routed this conversation to [facility] 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 Pool (Selected Message) Lexx Enamorado APRN.CNP 01/29/25 7:09 AM Note Please notify patient: Deficient in Vitamin D. Recommend [id number] international unit(s) per day. Hemoglobin A1C borderline prediabetic. I recommend decreasing carb and sugar intake. Continue to plan for ultrasound Lexx Enamorado APRN.CNP [facility] 01-27-2025 Instructions Lexx Enamorado APRN.CNP - 01/27/2025 9:35 AM EDT [facility] s Smoking Cessation Program The [facility] Smoking Cessation Program is a comprehensive, multifaceted program that can be tailored to your individual needs. We offer a variety of services designed to help you throughout the process, including office visits, distance health visits (virtual or telephone), and the eCoach program or pharmacy consultations. To schedule, call [phone] Appointments: An office visit: This is a one-on-one approach where you go to an office and meet with the provider to discuss your options for quitting. Distance health visits: This type of visit can be completed via virtual visit or telephone visit. Virtual visits require a smartphone, tablet or computer with access to a webcam, microphone and Internet connection. You will need to sign up for Progressive Carehart prior to your virtual visit. Telephone visits can be completed via audio only if patient does not have access to the above Pharmacotherapy Nicotine replacement therapy (patches, gum, lozenges, inhalers or nasal spray) Bupropion (Wellbutrin) Chantix Integrative and Lifestyle Medicine Services: Acupuncture Holistic Psychotherapy Meditation Yoga And more The eCoach program Expert tips tailored to you Behavioral replacements Recognizing individual triggers On your schedule Pharmacy consultation You can meet with a pharmacist (either online or in person) to discuss smoking cessation medications, including: Nicotine replacement therapy: gum, patches, lozenges, inhalers or nasal spray Bupropion SR Varenicline (Chantix ) The [place] [employer] (ACS) has a section devoted to quitting tobacco with information on where to get help, interactive tools, the relationship of tobacco and cancer, how to keep your kids smoke-free, smoke-free communities and the ACS s annual [place] Smokeout. Visit this link for more info: https://www.cancer.org/cancer/ris k-prevention/tobacco/guide-quitti ng-smoking.html The [place] [employer] has tools, tips, support and fact sheets to help you stop smoking or to help a loved one quit. There s also more information about [place] From Smoking , the program we use in our smoking classes at [facility]. Visit this link for more info: https://www.lung.org/quit-smoking /jrhj-rcvfqjf-auqe-smoking The National Cancer [place] s site, Smokefree.gov, has an abundance of free and accurate resources to encourage smokers to stop: Smokefree apps for your smartphone offer individualized guidance once you input your information You can sign up for the SmokefreeNEON ConciergeT text messaging program, which sends you daily text messages with encouragement, tips and advice to help making quitting easier Create a personalized Quit Plan by choosing a quit date and answering seven questions Take a quiz on your withdrawal symptoms See how you can prepare to quit 8-999-LEYL-NOW is the national portal to a network of state quitlines. Quitlines offer evidence-based support--like counseling, referrals to local programs, and free medication--to people who want to quit tobacco. documented in this encounter [facility] 01-27-2025 Note HNO ID: [id number] Author: LEXX ENAMORADO APRN.KINJAL Service: ? Author Type: Nurse Practitioner Type: Progress Notes Filed: 01/27/2025 09:47 Note Text: Field Support Engineer offered: Patient declinesHeath Vallejo is a 39 year old who presents for an annual gynecologic exam with complaints, heavy and painful periods. Soaking a pad/tampon every half hour. Had ultrasound 3-4 years ago in [place] that showed polyps. History of trich - 12/31. Took Flagyl as directed. Would like DEZ today. 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 LMP: 10/05/2015, Having periods Age at Menarche: Age at First : Age at Menopause: 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 History Comments: Sexual Activity: Yes; Male; tubal Contraception: Surgical 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 Environmental allergies Other abnormal heart sounds Murmur PAST SURGICAL HISTORY Procedure Laterality Date DELIVERY ONLY 2006,2009,03/16/12 , low cervical CESSAREAN DELIVERY ONLY 03/16/12 Dr Mendoza COLONOSCOPY FLX DX W/COLLJ SPEC WHEN PFRMD Colonoscopy ESOPHAGOGASTRODUODENOSCOPY TRANSORAL DIAGNOSTIC EGD INCISION THROMBOSED HEMORRHOID EXTERNAL 12/01/11 LIG/TRNSXJ FLP TUBE ABDL/VAG APPR UNI/BI 2012 Tubal ligation FAMILY HISTORY Problem Relation Age of Onset other (depression [Other]) Father Hypertension Mother other (depression [Other]) Paternal Grandmother BIPOLAR Alcohol/Drug Maternal Grandmother Alcohol/Drug Mother SOCIAL HISTORY Social History Tobacco Use Smoking status: Every Day Current packs/day: 0.50 Average packs/day: 0.5 packs/day for 6.0 years (3.0 ttl pk-yrs) Types: Cigarettes Smokeless tobacco: Never Substance Use Topics Alcohol use: No Drug use: No REVIEW OF SYSTEMS Abdomen: No abdominal pain, nausea, vomiting, diarrhea, or constipation. No bloating, early satiety, indigestion, or increased flatulence. Bladder: No dysuria, gross hematuria, urinary frequency, urinary urgency, or incontinence. Breast: No breast lumps, nipple d/c, overlying skin changes, redness or skin retraction. Allergies and current medication updated:Yes SENSITIVE EXAM: The sensitive examination was discussed with the Patient or Patient's Authorized Behavioral Technician. As applicable, any other physician, advance practice provider, medical student, or other health professional student that will be observing or involved in the sensitive examination for educational or training purposes was discussed with the Patient or Authorized Behavioral Technician. The Patient or Authorized Behavioral Technician has agreed to proceed with the sensitive examination. (Sensitive examination includes inspection and/or palpation of the breasts, pelvis, prostate and anorectal regions). EXAM: BP 120/60 Ht 5' 5 (1.65m) Wt 226 lb (102.5kg) LMP 01/02/2025 BMI 37.61 kg/(m2). GENERAL: pleasant, female in no apparent distress HEENT: Normocephalic, atraumatic, mucus membranes moist, and no lesions NECK: Supple, full range of motion, no adenopathy, and thyroid normal DERMATOLOGY: Normal, without lesions, non-icteric, and non-hirsute BREAST: soft, non-tender, symmetric, no dominant mass, normal nipple-areolar complex, no lymphadenopathy, and no nipple discharge CHEST: Normal inspiratory effort ABDOMEN: soft, non-tender, and no masses PELVIC: external genitalia normal, normal Bartholin's glands, urethra, Blairs's glands, no vulvar lesions, no cervical lesions, good vaginal support, physiologic discharge present, normal appearing perineal body and perianal region BIMANUAL: uterus normal size, shape and consistency, no adnexal masses, and non-tender. Limited due to habitus. RECTOVAGINAL: deferred. NEURO: alert and oriented x3,exam grossly non-focal EXTREMITIES: normal ASSESSMENT/PLAN: 1) Health maintenance: Pap done with HPV. Mammogram ordered. Smoking cessation: Smoking cessation encouraged and resources provided. 2) Contraception: tubal 3) STD screening: Accepts full STD screeening including HIV, Syphilis and Hepatitis. 4) Follow up one year or sooner as needed Abnormal uterine bleeding - ICD9: 626.9, ICD10: N93.9 - PELVIC US [facility] - COMPLETE BLOOD COUNT - THYROID STIMULATING HORMONE - T4 FREE/FREE THYROXINE - HEMOGLOBIN A1C - Declines hormonal control Family history of ova (more content not included)... [facility] 01-27-2025 History of Present illness Narrative Field Support Engineer offered: Patient declines. Genevieve is a 39 year old who presents for an annual gynecologic exam with complaints, heavy and painful periods. Soaking a pad/tampon every half hour. Had ultrasound 3-4 years ago in [place] that showed polyps. History of trich - 12/31. Took Flagyl as directed. Would like DEZ today. 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 LMP: 10/05/2015, Having periods Age at Menarche: Age at First : Age at Menopause: 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 History Comments: Sexual Activity: Yes; Male; tubal Contraception: Surgical 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 Environmental allergies Other abnormal heart sounds Murmur PAST SURGICAL HISTORY Procedure Laterality Date DELIVERY ONLY 2006,2009,03/16/12 , low cervical CESSAREAN DELIVERY ONLY 03/16/12 Dr Mendoza COLONOSCOPY FLX DX W/COLLJ SPEC WHEN PFRMD Colonoscopy ESOPHAGOGASTRODUODENOSCOPY TRANSORAL DIAGNOSTIC EGD INCISION THROMBOSED HEMORRHOID EXTERNAL 12/01/11 LIG/TRNSXJ FLP TUBE ABDL/VAG APPR UNI/BI 2012 Tubal ligation FAMILY HISTORY Problem Relation Age of Onset other (depression [Other]) Father Hypertension Mother other (depression [Other]) Paternal Grandmother BIPOLAR Alcohol/Drug Maternal Grandmother Alcohol/Drug Mother SOCIAL HISTORY Social History Tobacco Use Smoking status: Every Day Current packs/day: 0.50 Average packs/day: 0.5 packs/day for 6.0 years (3.0 ttl pk-yrs) Types: Cigarettes Smokeless tobacco: Never Substance Use Topics Alcohol use: No Drug use: No REVIEW OF SYSTEMS Abdomen: No abdominal pain, nausea, vomiting, diarrhea, or constipation. No bloating, early satiety, indigestion, or increased flatulence. Bladder: No dysuria, gross hematuria, urinary frequency, urinary urgency, or incontinence. Breast: No breast lumps, nipple d/c, overlying skin changes, redness or skin retraction. Allergies and current medication updated:Yes SENSITIVE EXAM: The sensitive examination was discussed with the Patient or Patient's Authorized Behavioral Technician. As applicable, any other physician, advance practice provider, medical student, or other health professional student that will be observing or involved in the sensitive examination for educational or training purposes was discussed with the Patient or Authorized Behavioral Technician. The Patient or Authorized Behavioral Technician has agreed to proceed with the sensitive examination. (Sensitive examination includes inspection and/or palpation of the breasts, pelvis, prostate and anorectal regions). EXAM: BP 120/60 Ht 5' 5 (1.65m) Wt 226 lb (102.5kg) LMP 01/02/2025 BMI 37.61 kg/(m^2). GENERAL: pleasant, female in no apparent distress HEENT: Normocephalic, atraumatic, mucus membranes moist, and no lesions NECK: Supple, full range of motion, no adenopathy, and thyroid normal DERMATOLOGY: Normal, without lesions, non-icteric, and non-hirsute BREAST: soft, non-tender, symmetric, no dominant mass, normal nipple-areolar complex, no lymphadenopathy, and no nipple discharge CHEST: Normal inspiratory effort ABDOMEN: soft, non-tender, and no masses PELVIC: external genitalia normal, normal Bartholin's glands, urethra, Blairs's glands, no vulvar lesions, no cervical lesions, good vaginal support, physiologic discharge present, normal appearing perineal body and perianal region BIMANUAL: uterus normal size, shape and consistency, no adnexal masses, and non-tender. Limited due to habitus. RECTOVAGINAL: deferred. NEURO: alert and oriented x3,exam grossly non-focal EXTREMITIES: normal ASSESSMENT/PLAN: 1) Health maintenance: Pap done with HPV. Mammogram ordered. Smoking cessation: Smoking cessation encouraged and resources provided. 2) Contraception: tubal 3) STD screening: Accepts full STD screeening including HIV, Syphilis and Hepatitis. 4) Follow up one year or sooner as needed Abnormal uterine bleeding - ICD9: 626.9, ICD10: N93.9 - PELVIC US [facility] - COMPLETE BLOOD COUNT - THYROID STIMULATING HORMONE - T4 FREE/FREE THYROXINE - HEMOGLOBIN A1C - Declines hormonal control Family history of ovarian cancer - ICD9: V16.41, ICD10: Z80.41 - CONSULT TO MEDICAL GENETICS - GENERAL Encounter for vitamin deficiency screening - ICD9: V77.99, ICD10: Z13.21 - States she has been deficient in Vitamin D in the past - VITAMIN D 25 HYDROXY Lexx Enamorado APRN.CNP Medical Decision Making: Problems: Moderate: 1+ chronic illnesses with change Data: Unique test(s) ordered: 3+ Risk: Low: Low risk from testing/treatment Medical Decision Making Level: 4 - Moderate documented in this encounter [facility] 12-23-2024 Note HNO ID: [id number] Author: CJ BRIGHT APRN.CNP Service: ? Author Type: Nurse Practitioner Type: Progress Notes Filed: 12/23/2024 16:32 Note Text: [facility] Subjective Genevieve Bello is a 39 year old female. Patient presents with: Vomiting: Vomiting and diarrhea x 1 day Patient came in with complaints of nausea and vomiting. Patient says it started this morning. Patient denies any fever chills abdominal pain. Patient denies any other symptoms. Patient has tried Pepto-Bismol with no relief. The history is provided by the patient. No urban anthropologist was used. Vomiting Review of Systems HENT: Negative. Gastrointestinal: Positive for nausea and vomiting. Objective BP 118/78 Pulse 91 Temp 37.3 ?C (99.1 ?F) (Tympanic) Resp 18 Wt 101.7 kg (224 lb 3.3 oz) LMP 10/05/2015 SpO2 97% BMI 37.35 kg/m? Physical Exam Constitutional: Appearance: Normal appearance. Cardiovascular: Rate and Rhythm: Normal rate and regular rhythm. Heart sounds: Normal heart sounds. Pulmonary: Effort: Pulmonary effort is normal. Breath sounds: Normal breath sounds. Abdominal: Palpations: Abdomen is soft. Tenderness: There is no abdominal tenderness. There is no guarding. Neurological: Mental Status: She is alert. 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 Environmental allergies Other abnormal heart sounds Murmur PAST SURGICAL HISTORY Procedure Laterality Date DELIVERY ONLY 2006,2009,03/16/12 , low cervical CESSAREAN DELIVERY ONLY 03/16/12 Dr Mendoza COLONOSCOPY FLX DX W/COLLJ SPEC WHEN PFRMD Colonoscopy ESOPHAGOGASTRODUODENOSCOPY TRANSORAL DIAGNOSTIC EGD INCISION THROMBOSED HEMORRHOID EXTERNAL 12/01/11 LIG/TRNSXJ FLP TUBE ABDL/VAG APPR /2011 Tubal ligation ALLERGIES Animal Dander, Asa [Salicylates], Grass Pollen, Lobster (Crustaceans), Milk, Oxycodone-Acetaminophen, and Peanuts MEDICATIONS ondansetron orally disintegrating (ZOFRAN ODT) 4 mg disintegrating tablet Take 1 tablet by mouth every 8 hours as needed for up to 7 days. metaxalone (SKELAXIN) 800 mg tablet take 1 tablet by mouth three times a day for 7 days HYDROcodone-acetaminophen (NORCO) 5-325 mg per tablet Take 2 tablets by mouth every 6 hours as needed. cyclobenzaprine (FLEXERIL) 10 mg tablet Take 10 mg by mouth three times daily as needed. (Patient not taking: Reported on 10/02/2024) DULoxetine (CYMBALTA) 30 mg capsule Take 1 capsule by mouth once daily. (Patient not taking: Reported on 10/02/2024) Desogestrel-Ethinyl Estradiol (APRI) 0.15-0.03 mg per tablet Take 1 tablet by mouth once daily. (Patient not taking: Reported on 10/02/2024) metroNIDAZOLE (METROGEL VAGINAL) 0.75 % Vaginal Gel Twice weekly vaginally x 6 months after initial course of flagyl (Patient not taking: Reported on 10/02/2024) ACETAMINOPHEN (TYLENOL ORAL) Take by mouth. ibuprofen (MOTRIN) 200 mg tablet Take 200 mg by mouth every 6 hours as needed. FAMILY HISTORY Problem Relation Age of Onset other (depression [Other]) Father Hypertension Mother other (depression [Other]) Paternal Grandmother BIPOLAR Alcohol/Drug Maternal Grandmother Alcohol/Drug Mother Social History Tobacco Use Smoking status: Every Day Current packs/day: 0.50 Average packs/day: 0.5 packs/day for 6.0 years (3.0 ttl pk-yrs) Types: Cigarettes Smokeless tobacco: Never Substance Use Topics Alcohol use: No Drug use: No {ASSESSMENT/PLAN: 1. Nausea - ICD9: 787.02, ICD10: R11.0 (primary diagnosis) 2. Nausea and vomiting, unspecified vomiting type - ICD9: 787.01, ICD10: R11.2 - ONDANSETRON 4 MG DISINTEGRATING TABLET Educated about proper use of medication and supportive therapies. Patient will follow-up if signs and symptoms seem to getting worse not better. Patient agreeable to care plan. Cj Bright APRN.WHEEL POLISHER MDM Procedures [facility] 12-23-2024 History of Present illness Narrative [facility] Subjective Genevieve Bello is a 39 year old female. Patient presents with: Vomiting: Vomiting and diarrhea x 1 day Patient came in with complaints of nausea and vomiting. Patient says it started this morning. Patient denies any fever chills abdominal pain. Patient denies any other symptoms. Patient has tried Pepto-Bismol with no relief. The history is provided by the patient. No urban anthropologist was used. Vomiting Review of Systems HENT: Negative. Gastrointestinal: Positive for nausea and vomiting. Objective BP 118/78 Pulse 91 Temp 37.3 C (99.1 F) (Tympanic) Resp 18 Wt 101.7 kg (224 lb 3.3 oz) LMP 10/05/2015 SpO2 97% BMI 37.35 kg/m Physical Exam Constitutional: Appearance: Normal appearance. Cardiovascular: Rate and Rhythm: Normal rate and regular rhythm. Heart sounds: Normal heart sounds. Pulmonary: Effort: Pulmonary effort is normal. Breath sounds: Normal breath sounds. Abdominal: Palpations: Abdomen is soft. Tenderness: There is no abdominal tenderness. There is no guarding. Neurological: Mental Status: She is alert. 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 Environmental allergies Other abnormal heart sounds Murmur PAST SURGICAL HISTORY Procedure Laterality Date DELIVERY ONLY 2006,2009,03/16/12 , low cervical CESSAREAN DELIVERY ONLY 03/16/12 Dr Mendoza COLONOSCOPY FLX DX W/COLLJ SPEC WHEN PFRMD Colonoscopy ESOPHAGOGASTRODUODENOSCOPY TRANSORAL DIAGNOSTIC EGD INCISION THROMBOSED HEMORRHOID EXTERNAL 12/01/11 LIG/TRNSXJ FLP TUBE ABDL/VAG APPR UNI/BI 2011 Tubal ligation ALLERGIES Animal Dander, Asa [Salicylates], Grass Pollen, Lobster (Crustaceans), Milk, Oxycodone-Acetaminophen, and Peanuts MEDICATIONS ondansetron orally disintegrating (ZOFRAN ODT) 4 mg disintegrating tablet Take 1 tablet by mouth every 8 hours as needed for up to 7 days. metaxalone (SKELAXIN) 800 mg tablet take 1 tablet by mouth three times a day for 7 days HYDROcodone-acetaminophen (NORCO) 5-325 mg per tablet Take 2 tablets by mouth every 6 hours as needed. cyclobenzaprine (FLEXERIL) 10 mg tablet Take 10 mg by mouth three times daily as needed. (Patient not taking: Reported on 10/02/2024) DULoxetine (CYMBALTA) 30 mg capsule Take 1 capsule by mouth once daily. (Patient not taking: Reported on 10/02/2024) Desogestrel-Ethinyl Estradiol (APRI) 0.15-0.03 mg per tablet Take 1 tablet by mouth once daily. (Patient not taking: Reported on 10/02/2024) metroNIDAZOLE (METROGEL VAGINAL) 0.75 % Vaginal Gel Twice weekly vaginally x 6 months after initial course of flagyl (Patient not taking: Reported on 10/02/2024) ACETAMINOPHEN (TYLENOL ORAL) Take by mouth. ibuprofen (MOTRIN) 200 mg tablet Take 200 mg by mouth every 6 hours as needed. FAMILY HISTORY Problem Relation Age of Onset other (depression [Other]) Father Hypertension Mother other (depression [Other]) Paternal Grandmother BIPOLAR Alcohol/Drug Maternal Grandmother Alcohol/Drug Mother Social History Tobacco Use Smoking status: Every Day Current packs/day: 0.50 Average packs/day: 0.5 packs/day for 6.0 years (3.0 ttl pk-yrs) Types: Cigarettes Smokeless tobacco: Never Substance Use Topics Alcohol use: No Drug use: No {ASSESSMENT/PLAN: 1. Nausea - ICD9: 787.02, ICD10: R11.0 (primary diagnosis) 2. Nausea and vomiting, unspecified vomiting type - ICD9: 787.01, ICD10: R11.2 - ONDANSETRON 4 MG DISINTEGRATING TABLET Educated about proper use of medication and supportive therapies. Patient will follow-up if signs and symptoms seem to getting worse not better. Patient agreeable to care plan. Cj Bright APRN.KINJAL MDM Procedures documented in this encounter [facility] 10-02-2024 Note HNO ID: [id number] Author: CJ BRIGHT APRN.KINJAL Service: ? Author Type: Nurse Practitioner Type: Progress Notes Filed: 10/02/2024 18:55 Note Text: [facility] Subjective Genevieve Bello is a 39 year old female. Patient presents with: Cough: Cough, chest congestion, ST and bodyachees x 1 week Patient came in with complaints of cough head and chest congestion. Patient says she is a smoker. Patient denies any shortness of breath. Patient says it does hurt to swallow. Patient denies any other symptoms. The history is provided by the patient. No urban anthropologist was used. Cough Review of Systems Constitutional: Negative. HENT: Negative. Respiratory: Positive for cough. Objective BP 118/82 Pulse 90 Temp 37.1 ?C (98.7 ?F) (Tympanic) Resp 18 Wt 101.4 kg (223 lb 8.7 oz) LMP 10/05/2015 SpO2 98% BMI 37.24 kg/m? Physical Exam Constitutional: Appearance: Normal appearance. HENT: Right Ear: Tympanic membrane, ear canal and external ear normal. Left Ear: Tympanic membrane, ear canal and external ear normal. Mouth/Throat: Mouth: Mucous membranes are moist. Pharynx: Posterior oropharyngeal erythema present. Eyes: Pupils: Pupils are equal, round, and reactive to light. Cardiovascular: Rate and Rhythm: Normal rate and regular rhythm. Heart sounds: Normal heart sounds. Pulmonary: Effort: Pulmonary effort is normal. Breath sounds: Wheezing present. Neurological: Mental Status: She is alert. 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 Environmental allergies Other abnormal heart sounds Murmur PAST SURGICAL HISTORY Procedure Laterality Date DELIVERY ONLY 2006,2009,03/16/12 , low cervical CESSAREAN DELIVERY ONLY 03/16/12 Dr Mendoza COLONOSCOPY FLX DX W/COLLJ SPEC WHEN PFRMD Colonoscopy ESOPHAGOGASTRODUODENOSCOPY TRANSORAL DIAGNOSTIC EGD INCISION THROMBOSED HEMORRHOID EXTERNAL 12/01/11 LIG/TRNSXJ FLP TUBE ABDL/VAG APPR UNI/BI 2012 Tubal ligation ALLERGIES Asa [Salicylates], Environmental [Other], Grass Pollen, Hair And Skin [Homeopathic Products], Lobster (Crustaceans), Milk, Oxycodone-Acetaminophen, and Peanuts MEDICATIONS metaxalone (SKELAXIN) 800 mg tablet take 1 tablet by mouth three times a day for 7 days HYDROcodone-acetaminophen (NORCO) 5-325 mg per tablet Take 2 tablets by mouth every 6 hours as needed. (Patient not taking: Reported on 10/02/2024) cyclobenzaprine (FLEXERIL) 10 mg tablet Take 10 mg by mouth three times daily as needed. (Patient not taking: Reported on 10/02/2024) DULoxetine (CYMBALTA) 30 mg capsule Take 1 capsule by mouth once daily. (Patient not taking: Reported on 10/02/2024) Desogestrel-Ethinyl Estradiol (APRI) 0.15-0.03 mg per tablet Take 1 tablet by mouth once daily. (Patient not taking: Reported on 10/02/2024) metroNIDAZOLE (METROGEL VAGINAL) 0.75 % Vaginal Gel Twice weekly vaginally x 6 months after initial course of flagyl (Patient not taking: Reported on 10/02/2024) ACETAMINOPHEN (TYLENOL ORAL) Take by mouth. ibuprofen (MOTRIN) 200 mg tablet Take 200 mg by mouth every 6 hours as needed. FAMILY HISTORY Problem Relation Age of Onset other (depression [Other]) Father Hypertension Mother other (depression [Other]) Paternal Grandmother BIPOLAR Alcohol/Drug Maternal Grandmother Alcohol/Drug Mother Social History Tobacco Use Smoking status: Every Day Current packs/day: 0.50 Average packs/day: 0.5 packs/day for 6.0 years (3.0 ttl pk-yrs) Types: Cigarettes Smokeless tobacco: Never Substance Use Topics Alcohol use: No Drug use: No 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 Environmental allergies Other abnormal heart sounds Murmur PAST SURGICAL HISTORY Procedure Laterality Date DELIVERY ONLY 2006,2009,03/16/12 , low cervical CESSAREAN DELIVERY ONLY 03/16/12 Dr Mendoza COLONOSCOPY FLX DX W/COLLJ SPEC WHEN PFRMD Colonoscopy ESOPHAGOGASTRODUODENOSCOPY TRANSORAL DIAGNOSTIC EGD INCISION THROMBOSED HEMORRHOID EXTERNAL 12/01/11 LIG/TRNSXJ FLP TUBE ABDL/VAG APPR UNI/BI 2011 Tubal ligation ALLERGIES Animal Dander, Asa [Salicylates], Grass Pollen, Lobster (Crustaceans), Milk, Oxycodone-Acetaminophen, and Peanuts MEDICATIONS metaxalone (SKELAXIN) 800 mg tablet take 1 tablet by mouth three times a day for 7 days doxycycline (VIBRA-TABS) 100 mg tablet Take 1 tablet by mouth two times a day for 7 days. HYDROcodone-acetaminophen (NORCO) 5-325 mg per tablet Take 2 tablets by mouth every 6 hours as needed. (Patient not taking: Reported on 10/02/2024) cyclobenzaprine (FLEXERIL) 10 mg tablet Take 10 mg by mouth three times daily as needed. (Patient not taking: Reported on 10/02/2024) DULoxetine ( (more content not included)... [facility] 10-02-2024 History of Present illness Narrative [facility] Subjective Genevieve Bello is a 39 year old female. Patient presents with: Cough: Cough, chest congestion, ST and bodyachees x 1 week Patient came in with complaints of cough head and chest congestion. Patient says she is a smoker. Patient denies any shortness of breath. Patient says it does hurt to swallow. Patient denies any other symptoms. The history is provided by the patient. No urban anthropologist was used. Cough Review of Systems Constitutional: Negative. HENT: Negative. Respiratory: Positive for cough. Objective BP 118/82 Pulse 90 Temp 37.1 C (98.7 F) (Tympanic) Resp 18 Wt 101.4 kg (223 lb 8.7 oz) LMP 10/05/2015 SpO2 98% BMI 37.24 kg/m Physical Exam Constitutional: Appearance: Normal appearance. HENT: Right Ear: Tympanic membrane, ear canal and external ear normal. Left Ear: Tympanic membrane, ear canal and external ear normal. Mouth/Throat: Mouth: Mucous membranes are moist. Pharynx: Posterior oropharyngeal erythema present. Eyes: Pupils: Pupils are equal, round, and reactive to light. Cardiovascular: Rate and Rhythm: Normal rate and regular rhythm. Heart sounds: Normal heart sounds. Pulmonary: Effort: Pulmonary effort is normal. Breath sounds: Wheezing present. Neurological: Mental Status: She is alert. 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 Environmental allergies Other abnormal heart sounds Murmur PAST SURGICAL HISTORY Procedure Laterality Date DELIVERY ONLY 2006,2009,03/16/12 , low cervical CESSAREAN DELIVERY ONLY 03/16/12 Dr Mendoza COLONOSCOPY FLX DX W/COLLJ SPEC WHEN PFRMD Colonoscopy ESOPHAGOGASTRODUODENOSCOPY TRANSORAL DIAGNOSTIC EGD INCISION THROMBOSED HEMORRHOID EXTERNAL 12/01/11 LIG/TRNSXJ FLP TUBE ABDL/VAG APPR UNI/BI 2011 Tubal ligation ALLERGIES Asa [Salicylates], Environmental [Other], Grass Pollen, Hair And Skin [Homeopathic Products], Lobster (Crustaceans), Milk, Oxycodone-Acetaminophen, and Peanuts MEDICATIONS metaxalone (SKELAXIN) 800 mg tablet take 1 tablet by mouth three times a day for 7 days HYDROcodone-acetaminophen (NORCO) 5-325 mg per tablet Take 2 tablets by mouth every 6 hours as needed. (Patient not taking: Reported on 10/02/2024) cyclobenzaprine (FLEXERIL) 10 mg tablet Take 10 mg by mouth three times daily as needed. (Patient not taking: Reported on 10/02/2024) DULoxetine (CYMBALTA) 30 mg capsule Take 1 capsule by mouth once daily. (Patient not taking: Reported on 10/02/2024) Desogestrel-Ethinyl Estradiol (APRI) 0.15-0.03 mg per tablet Take 1 tablet by mouth once daily. (Patient not taking: Reported on 10/02/2024) metroNIDAZOLE (METROGEL VAGINAL) 0.75 % Vaginal Gel Twice weekly vaginally x 6 months after initial course of flagyl (Patient not taking: Reported on 10/02/2024) ACETAMINOPHEN (TYLENOL ORAL) Take by mouth. ibuprofen (MOTRIN) 200 mg tablet Take 200 mg by mouth every 6 hours as needed. FAMILY HISTORY Problem Relation Age of Onset other (depression [Other]) Father Hypertension Mother other (depression [Other]) Paternal Grandmother BIPOLAR Alcohol/Drug Maternal Grandmother Alcohol/Drug Mother Social History Tobacco Use Smoking status: Every Day Current packs/day: 0.50 Average packs/day: 0.5 packs/day for 6.0 years (3.0 ttl pk-yrs) Types: Cigarettes Smokeless tobacco: Never Substance Use Topics Alcohol use: No Drug use: No 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 Environmental allergies Other abnormal heart sounds Murmur PAST SURGICAL HISTORY Procedure Laterality Date DELIVERY ONLY 2006,2009,03/16/12 , low cervical CESSAREAN DELIVERY ONLY 03/16/12 Dr Mendoza COLONOSCOPY FLX DX W/COLLJ SPEC WHEN PFRMD Colonoscopy ESOPHAGOGASTRODUODENOSCOPY TRANSORAL DIAGNOSTIC EGD INCISION THROMBOSED HEMORRHOID EXTERNAL 12/01/11 LIG/TRNSXJ FLP TUBE ABDL/VAG APPR /BI 2011 Tubal ligation ALLERGIES Animal Dander, Asa [Salicylates], Grass Pollen, Lobster (Crustaceans), Milk, Oxycodone-Acetaminophen, and Peanuts MEDICATIONS metaxalone (SKELAXIN) 800 mg tablet take 1 tablet by mouth three times a day for 7 days doxycycline (VIBRA-TABS) 100 mg tablet Take 1 tablet by mouth two times a day for 7 days. HYDROcodone-acetaminophen (NORCO) 5-325 mg per tablet Take 2 tablets by mouth every 6 hours as needed. (Patient not taking: Reported on 10/02/2024) cyclobenzaprine (FLEXERIL) 10 mg tablet Take 10 mg by mouth three times daily as needed. (Patient not taking: Reported on 10/02/2024) DULoxetine (CYMBALTA) 30 mg capsule Take 1 capsule by mouth once daily. (Patient not taking: Reported on 10/02/2024) Desogestrel-Ethinyl Estradiol (APRI) 0.15-0.03 mg per tablet Take 1 tablet by mouth once daily. (Patient not taking: Reported on 10/02/2024) metroNIDAZOLE (METROGEL VAGINAL) 0.75 % Vaginal Gel Twice weekly vaginally x 6 months after initial course of flagyl (Patient not taking: Reported on 10/02/2024) ACETAMINOPHEN (TYLENOL ORAL) Take by mouth. ibuprofen (MOTRIN) 200 mg tablet Take 200 mg by mouth every 6 hours as needed. FAMILY HISTORY Problem Relation Age of Onset other (depression [Other]) Father Hypertension Mother other (depression [Other]) Paternal Grandmother BIPOLAR Alcohol/Drug Maternal Grandmother Alcohol/Drug Mother Social History Tobacco Use Smoking status: Every Day Current packs/day: 0.50 Average packs/day: 0.5 packs/day for 6.0 years (3.0 ttl pk-yrs) Types: Cigarettes Smokeless tobacco: Never Substance Use Topics Alcohol use: No Drug use: No ASSESSMENT/PLAN: 1. Sore throat - ICD9: 462, ICD10: J02.9 (primary diagnosis) - Rapid Strep negative in the office today - Discussed supportive care treatment with fluids, rest and analgesia. - Contagious dz precautions discussed- including considered contagious until on antibiotics for 24 hours - STREP A MOLECULAR (POC) 2. Rhinosinusitis - ICD9: 473.9, ICD10: J32.9 - The patient should also be given OTC decongestants prn for the first 5-7 days of treatment. - DOXYCYCLINE HYCLATE 100 MG TABLET Cj Bright APRN.WHEEL POLISHER History and Record Review External record(s) reviewed: no prior records. Differential Diagnoses - respiratory infection, strep is more likely for the following reason(s): suggested by H&P - pneumonia is less likely for the following reason(s): H&P not suggestive Disposition The patient was discharged. Procedures documented in this encounter [facility] 05-20-2024 Note [facility] Medical Records Department [address] [place] [id number] History Physical Exam 05/20/24 1023 MR#: [id number] Acct: [id number] Name: GENEVIEVE BELLO Rep #: [id number] : 1985 39 From: Po Friend PCP: Dr. Silva Jaime MD Status:[facility] Location: [place] [address] History and Physical Date of Admission: 05/20/24 Chief Complaint: constipation, abdominal pain Details: GENEVIEVE BELLO, is a 39 F who presents to the office today for establishment with [facility]. Pt has a PMHx of HTN, GERD, depression, and a heart murmur. She is here today for increasing abdominal pain and constipation. She tells me she was diagnosed with colitis at age 16 with a colonoscopy. She was on asacol for a time period but discontinued it. For the past four years she has been struggling with GI symptoms with abdominal pain, constipation, joint pain, heartburn and nausea. She has taken medication for constipation in the past and says they do not work. She does not want to take miralax daily. She is having problems with working a she feels too unwell to work. She is unsure when her last colonoscopy was. ROS Const Constitutional: Positive for fatigue; No fever(s) or weight change ENT ENT: No difficulty swallowing Gastro GI: Positive for abdominal pain, bloating, change in bowel habits, constipation, excessive flatus, Blood in stool and nausea/dyspepsia; No belching, change in stool character, coffee ground emesis, cramping, diarrhea, heartburn, difficulty swallowing, feeling full early, incontinent of stools, Vomiting blood/hematemesis, loose stools, Black,tarry stools, pain with swallowing, vomiting or other Musc Musculoskeletal: Positive for back pain, muscle cramps, numbness and tingling; No joint pain Skin Skin: Positive for dry skin; No yellowing of the eye or itchy eyes Neuro Neurology: Positive for numbness and tingling Psych Psychiatric: Positive for anxiety, No depression and Positive for obsessions/compulsions Endo Endocrine: Positive for fatigue; No weight change Aller/Imm Allergy/Immunologic: No itchy eyes Anthony/Lymp Hematologic/Lymphatic: No easy bleeding or easy bruising Exam Const General: cooperative and comfortable Nutritional Appearance: average body habitus and well nourished [facility] Head: normal to inspection Ears: hearing grossly normal bilaterally Nose: external nose normal Throat: posterior oropharynx normal Eyes General: appearance normal, both eyes and all related structures Neck Neck: normal visual inspection Chest Chest palpation inspection: normal inspection of the chest Resp Effort Inspection: normal respiratory effort GI Inspection: normal to inspection Percussion: normal to percussion Palpation: no hepatosplenomegaly Skin General: no rashes or lesions noted Neuro General: patient alert Extrem General: normal to inspection Psych Affect: normal affect Assessment and Plan Assessment and Plan (1) Abdominal pain: Status: Acute Plan: Pt is a 39 to female here today for evaluation of abdominal pain, nausea, constipation and heartburn which has been going on for 4 years. She tells me she was diagnosed with colitis as a teenager and was on asocal but has not had f/u in recent years. She is unsure when her last scopes were. I will order blood work for IBD, celiac or other autoimmune conditions. I ordered stool testing. To rule out obstruction I ordered KUB. SHe will be scheduled for EGD and colonoscopy. I will start her on Linzess for constipation and abdominal pain as she has tried other medications and will not take daily miralax. Differental diangosis includes IBS, IBD, celiac, or food allergies. -KUB -EGD and Colonoscopy -Blood work and stool test -Prescribed Linzess -f/u in 3 months - (2) Constipation: Status: Acute Orders: Orders Allergen, Food Profile 14 Today R10.9 - Unspecified abdominal pain Erythrocyte Sed Rate Today R10.9 - Unspecified abdominal pain IBD Expanded Profile Today R10.9 - Unspecified abdominal pain RISHABH + Protein Elect, Serum Today R10.9 - Unspecified abdominal pain Immunoglobulins G/A/M/E Today R10.9 - Unspecified abdominal pain Ova and Parasites 8623 Today K58.9 - Irritable bowel syndrome without diarrhea, R10.9 - Unspecified abdominal pain Pancreatic Elastase, Fecal Today R10.9 - Unspecified abdominal pain Stool Lactoferrin/WBC Today K58.9 - Irritable bowel syndrome without diarrhea, R10.9 - Unspecified abdominal pain Calprotectin, Stool Today R10.9 - Unspecified abdominal pain CBC W/Diff, Automated Today R10.9 - Unspecified abdominal pain Comprehensive Metabolic Profil Today R10.9 - Unspecified abdominal pain Celiac Disease Profile Today R10.9 - Unspecified abdominal pain ENTERIC PATHOGEN PANEL STOOL Today K58.9 - Irritable bowel syndrome without diarrhea, R10.9 - (more content not included)... [facility] 10-22-2023 Discharge summary Note Date/Time October 22, 2023 9:13pm [facility] Medical Records Department [address] [place] [address] Emergency Department Summary 10/22/23 MR#: [id number] Acct: [id number] Name: GENEVIEVE BELLO Rep #:[id number] : 1985 38 From: Broderick Ayala MD PCP: Vanessa Ragland, DO Status:REG E R Location: ED HPI HPI - GI History of Present Illness Chief Complaint: Abd Pain Informant: patient Narrative Narrative: Patient presents with abdominal pain. She states she has seen her doctor but she has just done labs and referred her to GI who she cannot get into until March. She is not sure what to do she states. The symptoms that she has, which includes trouble having bowel movements, tenesmus, blood for the past 3 weeks on occasion, without fevers, nausea or vomiting, or any new symptoms otherwise, have been present for years. She states when she was 16 she had a colonoscopy for similar symptoms and was diagnosed with colitis, she was placed on Asacol which she took for maybe a year until it ran out then she did not get it filled nor did she follow-up and she has really never followed up or been seen since, she states he was following [facility] for some time but now she is here and trying to get established with care. Has been following with her PCP. [facility] Medical History Abdominal pain Anxiety Back pain Blood in stool Colitis Constipation Depression Heart murmur Hemorrhoids Marijuana abuse Marijuana smoker Weight gain Home Medications cyclobenzaprine 10 mg tablet 10 mg PO TID PRN Muscle Spasm 5 days #15 TABLETS 08/26/23 [Rx Last Taken Unknown] ergocalciferol (vitamin D2) 1,250 mcg (50,000 unit) capsule 50,000 unit PO SA 08/26/23 [History Last Taken Unknown] hydrocodone-acetaminophen 5-325mg 5mg-325mg 1 tab PO Q4H PRN PRN Pain 3 days #7 TABLETS 08/26/23 [Rx Last Taken Unknown] naproxen 500 mg tablet 500 mg PO BID #14 tabs 08/26/23 [Rx Last Taken Unknown] omeprazole 40 mg capsule,delayed release 40 mg PO QDAY #30 caps 09/08/23 [Rx Last Taken Unknown] ciprofloxacin HCl 500 mg tablet 500 mg PO BID #14 TABLETS 10/22/23 [Rx Last Taken Unknown] dicyclomine 10 mg capsule 20 mg (2 x 10 mg) PO Q6H PRN PRN abdominal pain #30 CAPSULES 10/22/23 [Rx Last Taken Unknown] metronidazole 500 mg tablet 500 mg PO BID #14 tabs 10/22/23 [Rx Last Taken Unknown] prednisone 20 mg tablet 40 mg (2 x 20 mg) PO DAILY #10 tabs 10/22/23 [Rx Last Taken Unknown] Allergy/AdvReac Type Severity Reaction Status Date / Time aspirin Allergy Severe UNKNOWN Verified 10/22/23 20:18 Penicillins AdvReac Mild Itching Verified 10/22/23 20:18 Family History (Updated 09/08/23 @ 10:08 by Altagracia Clarke) Father Hypertension CAD (coronary artery disease) Uncle Cancer skin Aunt Cancer brain Surgical History S/P section Social History Smoking Status: Current every day smoker tobacco type: cigarettes alcohol intake: never substance use type: marijuana ROS ROS ED Constitutional Constitutional ED: Denies chills or fever(s) Eyes Eyes: Denies change in vision or diplopia ENT ENT ED: Denies rhinorrhea or sore throat Cardiovascular Cardiovascular: Denies chest pain or palpitations Respiratory/Chest Respiratory/Chest: Denies cough or dyspnea Gastrointestinal Gastrointestinal: Reports as per HPI, abdominal pain, hematochezia and tenesmus;Denies diarrhea, melena, nausea or vomiting Genitourinary Genitourinary ED: Denies dysuria or hematuria Musculoskeletal Musculoskeletal: Denies back pain or neck pain Integumentary Denies abscess or rash Neurologic Neurologic: Denies headache(s), paresthesias or weakness Psychiatric Psychiatric: Denies suicidal thoughts EXAM Physical Exam Const Vital Signs: 10/22/23 20:16 10/22/23 20:16 Temperature 96.8 F L Temperature Source Temporal Pulse Rate 86 86 Respiratory Rate 12 14 Blood Pressure 163/82 H 163/82 H Blood Pressure Mean 109 109 Pulse Ox 100 100 Oxygen Delivery Method Room Air Room Air Positive well nourished and well developed General Appearance ED: well developed and NAD HEENT Reports moist mucous membranes normocephalic and atraumatic Eyes PERRL and EOMs intact bilaterally Neck full ROM and supple Resp normal respiratory effort and clear to auscultation bilaterally Cardio regular rate, regular rhythm and no murmurs GI non-distended GI Narrative: Left lower quadrant tenderness without guarding or rebound. No other areas of tenderness. Auscultation: normoactive bowel sounds Palpation: soft Back/Spine no CVA tenderness General Back: other FROM Extremity normal to inspection General Extremety ED: Negative for edema, pulses abnormal or tenderness General Extremity: Negative for edema or pulses abnormal Neuro oriented x3, CN's II-XII intact bilaterally and no sensory deficits noted Sensorium / Orientation: awake and alert Motor Exam: strength 5/5 throughout Psych mental status grossly normal Mood & Affect: anxious Skin no rashes or lesions noted and no wounds MDM MDM MDM Narrative Medical decision making narrative: I reviewed the patient's outpatient labs she had them 2-3 days ago, and they were all normal including LFTs and blood counts. I do not think she needs to repeat any of these here and I do not think she needs advanced imaging such as CT scan, given her history. This is all consistent with inflammatory colitis. 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 She is comfortable withthat plan and appreciative. History & Record Review Additional record(s) reviewed:: Prior outpatient record Discharge Plan Triage Chief Complaint: Abd Pain ED Provider: Broderick Ayala Dx/Rx/DC Orders Clinical Impression: Colitis Instructions: ED Understanding Colitis Prescriptions: New prednisone 20 mg tablet 40 mg PO DAILY Qty: 10 0RF dicyclomine 10 mg capsule 20 mg PO Q6H PRN PRN (Reason: abdominal pain) Qty: 30 0RF metronidazole [metronidazole] 500 mg tablet 500 mg PO BID Qty: 14 0RF ciprofloxacin HCl [ciprofloxacin HCl] 500 mg tablet 500 mg PO BID Qty: 14 0RF No Action omeprazole 40 mg capsule,delayed release(DR/EC) 40 mg PO QDAY Qty: 30 4RF Rx Instructions: swallow whole; do not crush, chew, dissolve, cut, break ergocalciferol (vitamin D2) 1,250 mcg (50,000 unit) capsule 50,000 unit PO SA hydrocodone-acetaminophen 5-325 mg tablet 1 tab PO Q4H PRN PRN (Reason: Pain) 3 Days Qty: 7 0RF naproxen 500 mg tablet 500 mg PO BID Qty: 14 0RF cyclobenzaprine 10 mg tablet 10 mg PO TID PRN (Reason: Muscle Spasm) 5 Days Qty: 15 0RF Primary Care Provider: Vanessa Ragland Referrals: Amado Cross MD [Med Staff - Active Staff] - (Call for appointment for evaluation for endoscopy) Vanessa Ragland DO [Primary Care Provider] - Friend,DO Po [Med Staff - Active Staff] - (May call periodically to see if there is a cancellation.) Disposition Disposition: Home, Self Care What to do if you have Problems For any increased pain, shortness of breath, bleeding, nausea or vomiting, chestpain, or any unexpected problems, contact your Primary Care Provider. Call [facility] ([phone]) or report to the closest Emergency Room. Call 911 if necessary. 10/22/232118 <Electronically signed by Broderick Ayala MD> Cosigner Signature (if applicable): CC: Vanessa Ragland DO ~ Signed [facility] Work Phone: Evaluation noteNo assessment information available [facility] Work Phone: Evaluation note* Diagnosis Onset Date Resolution Status Colitis acute Constipation acute GERD (gastroesophageal reflux disease) acute Hemorrhoids acute [facility] Work Phone: Evaluation note* Diagnosis Encounter to establish care- Primary Other reasons for seeking consultation Neck muscle spasm Spasm of muscle Colitis Other and unspecified noninfectious gastroenteritis and colitis Borderline personality disorder (HCC) Borderline personality disorder Anxiety Anxiety state, unspecified Post traumatic stress disorder Posttraumatic stress disorder Depression with anxiety Dysthymic disorder Tobacco abuse disorder Tobacco use disorder Piles (hemorrhoids) Unspecified hemorrhoids without mention of complication Sore throat- Primary Acute pharyngitis Rhinosinusitis Unspecified sinusitis (chronic) [facility] Diagnosis Encounter to establish care- Primary Other reasons for seeking consultation Neck muscle spasm Spasm of muscle Colitis Other and unspecified noninfectious gastroenteritis and colitis Borderline personality disorder (HCC) Borderline personality disorder Anxiety Anxiety state, unspecified Post traumatic stress disorder Posttraumatic stress disorder Depression with anxiety Dysthymic disorder Tobacco abuse disorder Tobacco use disorder Piles (hemorrhoids) Unspecified hemorrhoids without mention of complication Nausea- Primary Nausea alone Nausea and vomiting, unspecified vomiting type [facility] Diagnosis Encounter to establish care- Primary Other reasons for seeking consultation Neck muscle spasm Spasm of muscle Colitis Other and unspecified noninfectious gastroenteritis and colitis Borderline personality disorder (HCC) Borderline personality disorder Anxiety Anxiety state, unspecified Post traumatic stress disorder Posttraumatic stress disorder Depression with anxiety Dysthymic disorder Tobacco abuse disorder Tobacco use disorder Piles (hemorrhoids) Unspecified hemorrhoids without mention of complication Encounter for gynecological examination with abnormal finding- Primary Routine gynecological examination Screening for cervical cancer Screening for malignant neoplasm of the cervix Encounter for screening for human papillomavirus (HPV) Special screening examination for human papillomavirus (HPV) Encounter for screening mammogram for breast cancer Screen for STD (sexually transmitted disease) Screening examination for venereal disease Abnormal uterine bleeding Unspecified disorder of menstruation and other abnormal bleeding from female genital tract Family history of ovarian cancer Family history of malignant neoplasm of ovary Encounter for vitamin deficiency screening Screening for other and unspecified endocrine, nutritional, metabolic, and immunity disorders [facility] Discharge instructions Additional Instructions Please follow-up with your PCP and return for any worsening of your symptoms. [facility] Work Phone: Hospital Discharge instructionsAdditional Instructions Normal lumbar x-ray. Take medication as prescribed, follow-up with your doctor. [facility] Work Phone: Reason for referral (narrative)No reason for referral information [facility] Work [facility]: Advance Directives Advance Directive Response Recorded Date/ Time Living Will No August 20 2:22am Power of Hotel Dining Room Cashier No August 20, 2015 2:22am Advance Directive Response Recorded Date/ Time Living Will No August 26 7:52pm Power of Hotel Dining Room Cashier No August 26, 2023 7:52pm Advance Directive Response Recorded Date/ Time Living Will No October 22, 2023 8:22pm Power of Hotel Dining Room Cashier No October 21 8:22pm Advance Directive Response Recorded Date/ Time Do you have a Healthcare Power of Hotel Dining Room Cashier? No February 04, 2025 11:30am Chief Complaint and Reason for Visit Chief Complaint BACK Chief Complaint BACK CONSTIPATION/HEMORRHOIDS EORDER ABD PAIN Reason for Visit Colitis Constipation GERD (gastroesophageal reflux disease) Hemorrhoids Chief Complaint Admit Date BACK February 04, 2025 11:0 8am Family History Relationship Condition Age at Onset Recorded Date/T elda father Hypertension Unknown Coronary artery disease Unknown uncle Malignant neoplasm Unknown aunt Malignant neoplasm Unknown Summary Purpose Additional Source Comments Care Teams (unrecognized sec tion and content) Team Status: Active Member Role Status Dates No Primary Care Physician Family Provider Active Silva Jaime MD Primary Care Provider Active Team Status: Inactive Member Role Status Lucius Jaime MD Primary Care Provide r, Attending Provider, Referring Provider Active Team Status: Inactive Member Role Status Lucius Jaime MD Primary Care Provider Active Dr. Broderick Ayala MD Emergency Provider Active Team Status: Active Member Role Status Dates Gabrielle Primary Care Physician Family Provider Active Vanessa Ragland DO Primary Care Provider Active Team Status: Inactive Member Role Status Lucius Jaime MD Primary Care Provider, Referring Prov ider Active Dr. Helen Greenfield MD Attending Provider Active Team Status: Inactive Member Role Status Lucius Jaime MD Primary Care Provider Active Dr. Broderick Ayala MD Attending Provider, Emergency Provider Active Team Status: Active Member Role Status Lucius Jaime MD Primary Care Provider Active Vanessa Ragland DO Attending Provider, Referring Pr ovider Active Team Status: Inactive Member Role Status Dates Dr. Broderick Ayala MD Emergency Provider Active Vanessa Ragland DO Primary Care Provider Active Team Status: Inactive Member Role Status Lucius Jaime MD Primary Care Provider Active Vanessa Ragland DO Attending Provider, Referring Pr ovider Active Family Practice Medical Doctor Relationship Specialty Start Date End Date (Historical), Unknown PCP - General 05/01/17 Family Practice Medical Doctor Relationship Specialty Start Date End Date (Historical), Unknown PCP - General 05/01/17 Family Practice Medical Doctor Relationship Specialty Start Date End Date (Historical), Unknown PCP - General 05/01/17 Team Status: Active Member Role/Relationship Status Lucius Jaime MD Primary Care Provider Active Team Status: Inactive Member Role/Relationship Status Lucius Jaime MD Primary Care Provider Active St art: February 04, 2025 End: February 04, 2025 Dr. Thomas Feliciano DO Emergency Provider Active Start : February 04, 2025 End: February 04, 2025 Goals (unrecognized section and content) Goals may be documented in a n alternate sectionGoals may be documented in an alternate sectionGoals may be documented in an alternate sectionGoals may be documented in an alternate sectionGoals may be documented in an alternate section Source Comments (unrecognize d section and content) In the event this informatio n is protected by the Federal Confidentiality of Alcohol and Drug Abuse Patient Records regulations: The Federal rules restrict any use of the information to criminally investigate or prosecute any alcohol or drug abuse patient.[facility] the event this information is protected by the Federal Confidentiality of Alcohol and Drug Abuse Patient Records regulations: The Federal rules restrict any use of the information to criminally investigate or prosecute any alcohol or drug abuse patient.[facility] the event this information is protected by the Federal Confidentiality of Alcohol and Drug Abuse Patient Records regulations: The Federal rules restrict any use of the information to criminally investigate or prosecute any alcohol or drug abuse patient.[facility] the event this information is protected by the Federal Confidentiality of Alcohol and Drug Abuse Patient Records regulations: The Federal rules restrict any use of the information to criminally investigate or prosecute any alcohol or drug abuse patient.[facility] Reason for Visit (unrecogniz ed section and content) Reason Comments Cough Cough, chest congest ion, ST and bodyachees x 1 week Reason Comments Vomiting Vomiting and diarrhe a x 1 day Reason Comments Well Woman Reason Comments Results INFORMATION SOURCE (unrecogn ized section and content) DATE CREATED AUTHOR 10/11/2024 [facility] DATE CREATED AUTHOR AUTHOR'S OCHOA MCCARTHY 01/30/2025 [facility] FOR RECORDS PERTAINING TO PATIENTS WHO ARE OR HAVE BEEN ENROLLED IN A CHEMICAL DEPENDENCY/SUBSTANCEABUSE PROGRAM, SOME INFORMATION MAY BE OMITTED. This clinical summary was aggregated from multiple sources. Caution should be exercised in using it in the provision of clinical care. This summary normalizes information from multiple sources, and as a consequence, information in this document may materially change the coding, format and clinical context of patient data. In addition, data may be omitted in some cases. CLINICAL DECISIONS SHOULD BE BASED ON THE PRIMARY CLINICAL RECORDS. [employer] provides no warranty or guarantee of the accuracy or completeness of information in this document.
== END 2025-02-04 14:31 | disposition home or self-care (01) ==
PROVIDERS: Emergency Provider Emergency Medicine; PCP Family Medicine; Visit Provider Emergency Medicine
DX: S39.012A Strain of muscle, fascia and tendon of lower back, initial encounter (principal); X58.XXXA Exposure to other specified factors, initial encounter; K90.0 Celiac disease; G89.29 Other chronic pain; F17.210 Nicotine dependence, cigarettes, uncomplicated; Z88.6 Allergy status to analgesic agent; Z88.0 Allergy status to penicillin
CPT/HCPCS: 72100; 96372; 99283

== ENCOUNTER 2025-04-25 06:36 | Day surgery (SDC) | payer MEDICAID, SELFPAY ==
[2025-04-16 10:28] LABS: Hematocrit 40.0 % (37-47); Hemoglobin 13.6 g/dL (12.0-15.0); Mean Corp Hgb Conc 34.0 g/dL (32-36); Mean Corpuscular Volume 89.3 fL (81-99); Mean Platelet Vol. 9.9 fl (6.2-12.0); Platelet Count 343 K/mm3 (150-450); RBC Distribution Width CV 13.2 % (11.6-14.6); RBC Distribution Width SD 43.3 fl (35.1-43.9); Red Blood Count 4.48 M/mm3 (4.2-5.4); White Blood Count 7.1 K/mm3 (4.4-11.0)
--- NOTE | 2025-04-23 12:27 | HP.PCM_ITS ---
History and Physical Date of Admission: 04/25/25 HPI: The patient is a 40 year old female presenting for pre-operative visit. She is scheduled for Hysteroscopy D&C, polyp resection and IUD insertion for menorrhagia with regular cycle on 04/11/25. Procedure discussed along with risks, benefits and complications. Other alternatives discussed for management. Consent form signed? Yes. ? ? PAST MEDICAL HISTORYExpand by Default PAST MEDICAL HISTORYDiagnosisDate?Anxiety??ASCUS with positive high risk HPV [id number]/07/2025?Atypical squamous cell changes of undetermined significance (ASCUS) on cervical cytology with positive high risk human papilloma virus (HPV)01/31/2025?Bipolar I disorder, most recent episode (or current) unspecified??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?Celiac disease (HCC)??Environmental allergies??Other abnormal heart sounds??Murmur ? ? PAST SURGICAL HISTORY PAST SURGICAL HISTORYProcedureLateralityDate? DELIVERY ONLY?2006,2009,03/16/12?, low cervical?CESSAREAN DELIVERY ONLY?03/16/12? Dr Mendoza?COLONOSCOPY FLX DX W/COLLJ SPEC WHEN PFRMD???Colonoscopy ?ESOPHAGOGASTRODUODENOSCOPY TRANSORAL DIAGNOSTIC???EGD?INCISION THROMBOSED HEMORRHOID EXTERNAL?12/01/11?LIG/TRNSXJ FLP TUBE ABDL/VAG APPR UNI/BI?2011?Tubal ligation ? ? ? CURRENT MEDICATIONS Current Outpatient MedicationsMedicationSigDispenseRefill?OTC NUTRITIONAL SUPPLEMENTMultivitmain???ACETAMINOPHEN (TYLENOL ORAL)Take by mouth.???ibuprofen (MOTRIN) 200 mg tabletTake 200 mg by mouth every 6 hours as needed.???No current facility-administered medications for this visit. ? ? ALLERGIES: Animal Dander, Asa [Salicylates], Grass Pollen, Lobster (Crustaceans), Milk, Oxycodone-Acetaminophen, and Peanuts ? PERSONAL HISTORY: [SOCIAL HISTORY] [SOCIAL HISTORY] Social History Tobacco Use ? Smoking status: Every Day ? ? Current packs/day: 0.50 ? ? Average packs/day: 0.5 packs/day for 6 .0 years (3.0 ttl pk-yrs) ? ? Types: Cigarettes ? Smokeless tobacco: Never Vaping Use ? Vaping status: Never Used Substance Use Topics ? Alcohol use: No ? Drug use: Yes ? ? Types: Marijuana ? FAMILY HISTORY: FAMILY HISTORY FAMILY HISTORY ProblemRelationAge of Onset ?HypertensionMother??Alcohol/DrugMother??Ovarian [id number]?other (depression [Other])Father??Alcohol/DrugMaternal Grandmother??other (depression [Other])Paternal Grandmother?? BIPOLAR ? ? REVIEW OF SYMPTOMS: GENERAL: denies fevers or chills ENDOCRINOLOGY: has not been on steroids Cardiology : denies palpitations or chest pain Respiratory: denies SOB or cough Hematology: denies history of prolonged bleeding or easy bruising or VTE Allergy: Denies history of personal or family history of allergy to anesthesia ? PHYSICAL EXAMINATION: ? VITALS: Blood pressure 128/74, pulse 83, weight 98.4 kg (217 lb), last menstrual period 03/28/2025, SpO2 98%. ? GENERAL: The patient is well nourished, well hydrated in no acute distress. , The patient is oriented to time, place, and person. NECK: Supple. No lynphadenopathy, normal thyroid, no thyromegaly. LUNGS: Clear to auscultation bilaterally. no wheezes, rhonchi or rales HEART: Regular rate and rhythm, Normal heart sounds, and No murmurs or gallops ? Pelvic US 02/07/25: Impression Suboptimal visualization due to axial position of uterus and habitus. Normal appearing axial uterus that measures 107 mm x 47 mm x 67 mm. Within the endocervical canal, there is a 21 x 9 x 14 mm vascular polyp. Endometrium has a trilaminar appearance and measures 7.9 mm. Both ovaries are visualized and appear normal. No adnexal masses were observed. There is free fluid visualized in the peritoneal cavity. ? ? ? IMPRESSION: menorrhagia, endometrial polyp, dysmenorrhea ? PLAN: The risks/benefits/alternatives and personal involved for the planned hysteroscopy D&C with polyp resection and IUD insertion were reviewed with the patient. Her questions were answered to her satisfaction and she desires to proceed. Consent was signed. I reviewed with her postop instructions and expectations. ? ? I have reviewed and updated past medical and surgical history, medications and allergies
[2025-04-25] VITALS (8 sets, daily range): BP systolic 90–120; BP diastolic 58–79; PULSE 64–73; RESP 14–18; TEMP 36.2–36.7; O2SAT 97–100; BMI 35.6
[2025-04-25 06:59] LABS: Internal QC Validated? YES +Cl - CLEAR BKGD; Pregnancy, Urine Negative Negative
[2025-04-25 07:00] LABS: Record Kit Lot#,Urine Preg 0000980607
[2025-04-25] MEDS: Lactated Ringers 1,000 ML 15 ML IV (07:08)
[2025-04-25] MEDS: Ketorolac 30 MG/ML Syringe IV (07:08)
--- NOTE | 2025-04-25 07:48 | PCM.PRE.AN2 ---
ASA Classification* ASA Classification ASA Classification: 2 Assessment & Plan Anesthesia* Anesthesia Assessment Anesthesia Assessment: Discussed sedation and/or anesthesia options, risks, benefits, and alternatives with patient/parents/legal guardian/POA. Questions invited. The patient/parents/legal guardian/POA seems to understand and agrees to proceed with anesthesia plan. Reviewed the physical assessment, medical history, allergy history and patient home medications list prior to surgery/procedure/anesthetic and documented any changes. Performed airway and anesthesia risk assessments. Anesthesia Type Anesthesia Type: MAC Anesthesia Focused Assessment* Temperature: 98.1 F Pulse Rate: 73 Blood Pressure: 120/79 Respiratory Rate: 14 Pulse Ox: 97 Airway Assessment Mouth opens: >3 cm Mallampati Score: II Labs Anesthesia Preop lab: CBC WBC, (4.4-11.0) 7.1 K/mm3 04/16/25, 09:13 RBC, (4.2-5.4) 4.48 M/mm3 04/16/25, 09:13 Hgb, (12.0-15.0) 13.6 g/dL 04/16/25, 09:13 Hct, (37-47) 40.0 % 04/16/25, 09:13 Plt Count, (150-450) 343 K/mm3 04/16/25, 09:13 CHEMISTRY Potassium, (3.5-5.1) 4.0 mmol/L 04/16/24, 10:58 Sodium, (136-145) 135 mmol/L L 04/16/24, 10:58 Magnesium, (1.6-2.6) 1.9 mg/dL 10/19/23, 14:34 BUN, (7-18) 16 mg/dL 04/16/24, 10:58 Creatinine, (0.55-1.02) 0.53 mg/dL L 04/16/24, 10:58 Glucose, (74-106) 90 mg/dL 04/16/24, 10:58 TSH, (0.358-3.740) 2.530 uIU/mL 05/13/24, 14:03 COAG Urine Test Negative Negative Today, 06:45 Pre-Assessment Diagnosis/Proposed Procedure Planned Operative Procedure(s): (N/A) Hysteroscopy,D&C Symphion,Liletta IUD Insertion Anesthesia History 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 When Was Last Pacemaker Check QUESTION #4 FULL TEXT: You/Your Family Experience fever (hyperthermia) with Anesthesia Last Oral Intake Last Oral intake: Last Oral Intake NPO since 19:00 04/25/25 06:57 Meds taken in AM with sips of No 04/25/25 06:57 water? 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 Female Yes 04/15/25 11:06 HX of Motion Sickness No 04/15/25 11:06 HX of N/V After Surgery No 04/15/25 11:06 Non-Smoker No 04/15/25 11:06 Duration of Surgery greater No 04/15/25 11:06 than 60 minutes Number of Risk Factors 1 04/15/25 11:06 PONV Score Low Risk 04/15/25 11:06 Height & Weight Height & Weight: Anesthesia: Height & Weight Height 5 ft 5 in 04/25/25 06:57 Weight: 97 kg 04/25/25 06:57 Body Mass Index (BMI) 35.6 04/25/25 06:57 Respiratory Assessment Respiratory Assessment - vacuum plastic forming machine operator: Respiratory Tract Infection Hx - vacuum plastic forming machine operator Hx Respiratory Tract Infection No 04/15/25 11:06 STOP Sleep Apnea STOP Sleep Apnea - vacuum plastic forming machine operator: STOP Sleep Apnea - vacuum plastic forming machine operator Hx Hypertension No 04/15/25 11:06 Hx Sleep Apnea No 04/15/25 11:06 CPAP BIPAP Do you snore loudly (louder No 04/15/25 11:06 than talking or can be heard Do you often feel tired/ No 04/15/25 11:06 fatigued/ sleepy during daytime? Has anyone observed you stop No 04/15/25 11:06 breathing during sleep? STOP Results Negative 04/15/25 11:06 QUESTION #5 FULL TEXT : Do you snore loudly (louder than talking or can be heard through closed doors)? 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 Specify any problems Hx of Preganancy in last 3 N/A 04/15/25 11:06 Months Nurse Filling Out Transfusion NBUCHER 04/15/25 11:06 & Questions: Date: 04/15/25 04/15/25 11:06 Time: 11:07 04/15/25 11:06 Patient unable to answer at this time (ie. 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: /Reproductive Hx- vacuum plastic forming machine operator Hx Now No 04/15/25 11:06 Gestational Age (in weeks): EDC: Hx Hx Para Hx Section SAB No 04/15/25 11:06 Active Medications Active Medications: Current Medications Generic Name Dose Route Start Last Admin Trade Name Freq PRN Reason Stop Dose Admin Acetaminophen 1,000 mg 04/25/25 08:25 04/25/25 07:09 Acetaminophen 500 Mg Tablet PO 04/25/25 08:26 1,000 mg PREOP ONE Administration Lactated Ringer's 1,000 mls @ 15 mls/hr 04/25/25 06:45 04/25/25 07:08 IV 15 mls/hr .Q48H PENNIE Administration Ketorolac Tromethamine 30 mg 04/25/25 08:25 04/25/25 07:08 Ketorolac 30 Mg/Ml Syringe IV 04/25/25 08:26 30 mg PREOP ONE Administration Levonorgestrel 1 each 04/25/25 08:25 Levonorgestrel Iud (Liletta) INTRA-UTER 04/25/25 08:26 X1 ONE [facility] Medical History Smoker Anemia Easy bruising Weight gain Abdominal pain Blood in stool Anxiety Depression Heart murmur Colitis Constipation Hemorrhoids Back pain Marijuana smoker Marijuana abuse Allergy/AdvReac Type Severity Reaction Status Date / Time Penicillins AdvReac Mild Itching Verified 04/25/25 06:55 oxycodone (From Percocet) AdvReac Unknown Itching Verified 04/25/25 06:56 Family History Father Hypertension CAD (coronary artery disease) Uncle Cancer skin Aunt Cancer brain Surgical History History of esophagogastroduodenoscopy (EGD) History of colonoscopy S/P section Social History Smoking Status: Current every day smoker tobacco type: cigarettes alcohol intake: never substance use type: marijuana Review of Systems (Anesthesia) ROS Narrative System reviewed and no additional complaints, except as documented.
[2025-04-25] MEDS: Levonorgestrel IUD (Liletta) 1 EACH INTRA-UTER (08:25)
--- NOTE | 2025-04-25 08:25 | EMB_PTH ---
PATIENT: LEONIDAS MONROE [place] [facility] [place][id number] AGE/SX: 40/F ROOM: RE04/25/[address]: Dr. Clara Mendoza MD : 1985 BED: DIS: 04/25/2025 SPEC #: [id number] RECD: 04/25/25 10:13 STATUS: UTE RECharles #: [id number] JOSÉ: 04/25/25 08:[address]: Clara Mendoza DEPT: SURGICAL PATHOLOGY RECD BY: Prateek Alvarado ENTERED: 04/25/25 11:29 SP TYPE: ENDOM BX/C OTHR DR: Silva Jaime MD Tissues: A - Endometrium, NOS Procedures: Surgery Specimen Level IV HEADER OPERATION: Hysteroscopy, D&C PRE-OP DIAGNOSIS: Menorrhagia TISSUE SUBMITTED: A- Endometrial curettings MICROSCOPIC DIAGNOSIS A. Endometrium, curettage: * Proliferative endometrium MICROSCOPIC DESCRIPTION Slides are reviewed. GROSS DESCRIPTION A. Received in formalin labeled with the patient's name and date of . Designated as endometrial curettings is a 3.4 x 2.7 x 1.0 cm aggregate of viveros-pink to white, irregular tissue fragments. Entirely submitted in 3 cassettes. HI 04/25/2025 CPT:62124
[2025-04-25] MEDS: Midazolam 2 MG/2 ML Syringe IV (08:39)
[2025-04-25] MEDS: PROPOFOL 72.14 MG IV (08:45)
--- NOTE | 2025-04-25 08:47 | PCM.DC ---
Discharge Instructions DC O2, CPAP, BIPAP needs Home O2 Discharge instructions: No Dressing / Incision Discharge Activity: May Shower Return to work on:: 04/28/25 May resume sexual activity in: 1 week Lifting Restrictions: none Dressing / Incision Call your doctor if your incision/area has: Sudden Increased Bleeding and Foul Smelling Discharge Call your doctor if you observe: Fever of 101 or Higher and Using more than 1 pad per hour (for 2 hrs in a row) Follow Up Care Please Follow Up With: Clara Mendoza MD When: You do not need a postop check. Call [phone] or send a [employer] message to make an appointment or with any concerns, otherwise follow up for annual exams. Test Results: Test results from this visit will be discussed in further detail at your follow-up appointment, if applicable. Discharge Plan Admission Primary Reason for Your Visit: Hysteroscopy D&C with IUD insertion Attending Provider: Clara Mendoza Primary Care Provider: Silva Jaime Instructions Print Language: Setswana Discharge Orders/Prescriptions Referrals / Follow Up: iSlva Jaime MD [Primary Care Provider, Family Practice] Disposition Disposition (needs filled in before D/C Order can be placed): Home, Self Care
[2025-04-25] MEDS: Lidocaine 1% (5 ml sdv) 5 ML Vial IV (08:48)
[2025-04-25] MEDS: Lidocaine 1% /Epi 1:100 (20ml) 20 ML Vial (08:57)
--- NOTE | 2025-04-25 09:29 | OP.PCM_ITS ---
Operative Report (Standard) Operative Information Date of Procedure: 04/25/25 Pre-Operative Diagnosis: menorrhagia, endometrial polyp, dysmenorrhea Post-Operative Diagnosis: Menorrhagia and dysmenorrhea Surgery/Procedure Performed: Hysteroscopy Dilation and curettage with IUD insertion regulatory and compliance technician: Yes Ncqa Specialist: Ludmila Love MS4 Tasks completed by housekeeping assistant: Retracting and Other (dilation of cervix) Bruno tional food trades assistants?: No Type of Anesthesia: MAC/Supplemental/Local RN Documented Start/Stop Times: Operation Date: 04/25/25 08:25 Case Time Into Pre-Op 04/25/25 06:41
--- NOTE | 2025-04-25 09:29 | PCM.OPRPT ---
Operative Report (Standard) Operative Information Date of Procedure: 04/25/25 Pre-Operative Diagnosis: menorrhagia, endometrial polyp, dysmenorrhea Post-Operative Diagnosis: Menorrhagia and dysmenorrhea Surgery/Procedure Performed: Hysteroscopy Dilation and curettage with IUD insertion head of academic technology: Yes Lav Crewman: Ludmila Love MS4 Tasks completed by bilingual teacher assistant: Retracting and Other (dilation of cervix) Additional hospital administrative assistant?: No Type of Anesthesia: MAC/Supplemental/Local RN Documented Start/Stop Times: Operation Date: 04/25/25 08:25 Case Time Into Pre-Op 04/25/25 06:41 Out of Pre-Op 04/25/25 08:36 Procedure Start Time: 08:57 Procedure Stop Time: 09:26 Select all DRAINS/GRAFTS/IMPLANTS that apply: None Estimated Blood Loss: 10 Fluids Replaced: 600 cc LR Specimen collected: Yes Description of specimen(s) removed: endometrial curettings Description of surgery: The patient was taken to the OR where she was prepped and draped in dorsal lithotomy position. The weighted speculum was placed in the vagina and the anterior lip of the cervix was grasped with a single-tooth tenaculum. A paracervical block was administered with 1% lidocaine with 1-100,000 epinephrine solution. The cervix was dilated serially with Hegar dilators. The Symphion hysteroscope was placed into the uterine cavity and the above findings were noted. Bilateral tubal ostia were identified. The Symphion resection device was inserted and used to do a direct endometrial resection. The hysteroscope was removed and the Lilettat IUD was inserted in the usual sterile fashion. The uterus sounded to 11 cm. The instruments were removed from the vagina. The specimen was handed off and sent to pathology. All sponge and needle counts were correct. Vaginal sweep was performed by me. The patient was awakened and taken to the recovery room in stable condition. Hysteroscopic fluid deficit was 1000 cc of normal saline Surgical Findings: lush endometrium, no discrete polyps or focal abnormalities, normal cervix and vagina Complications Complications: No Admit VTE Documentation VTE Present on Admission: No VTE Mechan Device Prophylaxis: SCD's VTE Pharm Prophylaxis ordered?: No
--- NOTE | 2025-04-25 09:34 | PCM.POST.ANE ---
Anesthesia: Postop Eval I Current Vital Signs Temperature: 97.1 F Pulse Rate: 71 Blood Pressure: 103/77 Respiratory Rate: 18 Pulse Ox: 100 Assessment Airway patent: Yes Spontaneous unlabored respirations: Yes nausea: No Vomiting: No Anesthesia Complication: No Fluid Hydration Crystalloid volume administer (ml): 600 Total IV fluid infused: 600 Progress Note Anesthesia document: Postop Eval 1 completed: Yes
--- NOTE | 2025-04-25 10:30 | POSTOPAN2_ITS ---
Anesthesia Postop Eval I Sum Postop Eval Completion status Anesthesia document: Postop Eval 1 completed: Yes Anesthesia Postop Eval I Summary Anesthesia Postop Eval I Summary: Anesthesia Postop Eval I: Assessment Summary Airway patent Yes 04/25/25 09:34 RENT COLLECTOR.CSIR Spontaneous unlabored Yes 04/25/25 09:34 RENT COLLECTOR.CSIR respirations Mental status nausea No 04/25/25 09:34 RENT COLLECTOR.CSIR Vomiting No 04/25/25 09:34 RENT COLLECTOR.CSIR Anesthesia Postop Eval I: Fluid Summary Crystalloid volume administer 600 04/25/25 09:34 RENT COLLECTOR.CSIR (ml) Colloids volume administered ( ml) Blood Product volume administered (ml) Total IV fluid infused 600 04/25/25 09:34 RENT COLLECTOR.CSIR Anesthesia Postop Eval I: Summary Notes Anesthesia Complication No 04/25/25 09:34 RENT COLLECTOR.CSIR Anesthesia Complication Comment: Post-operative progress note Anesthesia: Postop Eval II Evaluation Mental status: Awake Pain Level: 0 nausea: No Vomiting: No
--- NOTE | 2025-04-25 10:30 | PCM.POSTANE2 ---
Anesthesia Postop Eval I Sum Postop Eval Completion status Anesthesia document: Postop Eval 1 completed: Yes Anesthesia Postop Eval I Summary Anesthesia Postop Eval I Summary: Anesthesia Postop Eval I: Assessment Summary Airway patent Yes 04/25/25 09:34 ENGINEERING PROFESSOR.CSIR Spontaneous unlabored Yes 04/25/25 09:34 ENGINEERING PROFESSOR.CSIR respirations Mental status nausea No 04/25/25 09:34 ENGINEERING PROFESSOR.CSIR Vomiting No 04/25/25 09:34 ENGINEERING PROFESSOR.CSIR Anesthesia Postop Eval I: Fluid Summary Crystalloid volume administer 600 04/25/25 09:34 ENGINEERING PROFESSOR.CSIR (ml) Colloids volume administered ( ml) Blood Product volume administered (ml) Total IV fluid infused 600 04/25/25 09:34 ENGINEERING PROFESSOR.CSIR Anesthesia Postop Eval I: Summary Notes Anesthesia Complication No 04/25/25 09:34 ENGINEERING PROFESSOR.CSIR Anesthesia Complication Comment: Post-operative progress note Anesthesia: Postop Eval II Evaluation Mental status: Awake Pain Level: 0 nausea: No Vomiting: No
== END 2025-04-25 10:19 | disposition home or self-care (01) ==
LOC: SDC 06:38 → AC 06:39
PROVIDERS: PCP Family Medicine; Referring Provider Obstetrics & Gynecology; Visit Provider Obstetrics & Gynecology
PROC: 0UB98ZZ Excision of Uterus, Via Natural or Artificial Opening Endoscopic (ICD-10-PCS; CPT 58558; principal; 2025-04-25 08:10)
DX: N92.0 Excessive and frequent menstruation with regular cycle (principal); F17.210 Nicotine dependence, cigarettes, uncomplicated; N84.0 Polyp of corpus uteri; N94.6 Dysmenorrhea, unspecified
CPT/HCPCS: 58558; 58300; 00952; 36415; 81025; 85027; 88305; J2405